=== PATIENT | female | born 1940 | race Caucasian/White ===

== ENCOUNTER → 2016-10-31 | Day surgery (SDC) | payer BC ==
[2016-10-23 15:44] VITALS: Ht 157.5 cm; Wt 59.1 kg
[~2016-10-31] VITALS: Ht 157.5 cm; Wt 59.1 kg
[~2016-10-31] MED LIST: 500ML BSS 0.3ML EPI 1:1000PF IRRIG ONE; ACETAMINOPHEN 325 MG TAB ONE; ACETAMINOPHEN 325 MG TAB PO PRN; AMVISC PLUS 0.8ML SYRINGE INT OCU ONE; ATROPINE SULFATE 0.1 MG/ML 5ML SYR IV PRN; AcetaZOLAMIDE 250 MG TAB ONE; AcetaZOLAMIDE 250 MG TAB PO SCH; AcetylCHOLine CHL OP SOL 1:100 2 ML BTL ONE; BSS FLUSH ONE; CIPR0.3S OP; ENDOCOAT 0.85ML SYRINGE INT OCU ONE; EpHEDrine SULFATE INJ 50 MG/ML AMP IV PRN; EpINEphrine INJ 1MG/ML AMP 1 MG/ML AMP ONE; FENTANYL CITRATE INJ 50 MCG/1 ML 2 ML VIAL ONE; HYDR200T5 PO; LACTATED RINGER'S 1000ML 500 ML IV SCH; LIDOCAINE 4% OP SOLN DROP CHARGE ONE; LIDOCAINE 4% OP SOLN DROP CHARGE OPL SCH; LIDOCAINE HCL 1% MPF 2 ML VIAL ONE; MIDAZOLAM HCL 1 MG/ML 2ML VIAL ONE; MIX: 4ML BSS 1ML EPI 1:1000 PF TOP ONE; MOXIFLOXACIN OPH SOLN PER DROP CHARGE ONE; POVIDONE-IODINE OP SOLN 30 ML BTL ONE; PRED-301 PO; PRED1SUS3 OPL; PROPARACAINE 0.5% OP SOLN PER DROP CHARGE OPL SCH; RISE150T PO; TOBRAMYCIN/DEXAMETHASONE OPH OINT PER APPLN CHARGE ONE; VITAMIN D PO
[2016-10-31] MEDS: PHENYLEPHRINE HCL 2.5% OP SOLN PER DROP CHARGE OPL SCH ×3 (06:31→06:41)
[2016-10-31] MEDS: TROPICAMIDE 1% OP SOLN PER DROP CHARGE OPL SCH ×3 (06:32→06:42)
[2016-10-31] MEDS: CYCLOPENTOLATE HCL 1% OP SOLN PER DROP CHARGE OPL SCH ×3 (06:33→06:43)
[2016-10-31] MEDS: MOXIFLOXACIN OPH SOLN PER DROP CHARGE OPL SCH ×3 (06:34→06:44)
--- NOTE | 2016-10-31 06:40 | History & Physical Bridge - [place] ---
H&P Re-Evaluation Bridge Note: I have examined the patient, reviewed the History & Physical and in the interval since the performance of the History & Physical I have noted the following changes of clinical significance: No changes noted
--- NOTE | 2016-10-31 07:51 | [facility] Post Operative Brief Note ---
Immediate Operative Summary Operative Date Oct 31, 2016. Pre-Operative Diagnosis Left Eye Cataract Post-Operative Diagnosis Same Procedure(s) Performed Left Cataract Phacoemulsification With Intraocular Lens Implant Surgeon Dr Bailey Supervisor Grower Surgeon(s) None Estimated Blood Loss 0ml Findings left cataract Specimens None Complication(s) posterior capsule tear with vitreous prolapse Disposition
[2016-10-31 07:53] VITALS: TEMP 36.7
--- NOTE | 2016-10-31 07:54 | [facility] Operative Report ---
Operative Report Phaco with monofocal IOL DATE OF OPERATION: 10/31/16 PREOPERATIVE DIAGNOSIS: Senile nuclear cataract, left eye POSTOPERATIVE DIAGNOSIS: Senile nuclear cataract, left eye PROCEDURE PERFORMED: Phacoemulsification with intraocular lens implantation, left eye SURGEON: Dr. Jorge Bailey ANESTHESIA: Topical with 1% intracameral lidocaine and monitored anesthesia care COMPLICATIONS: Posterior capsule tear with vitreous loss DESCRIPTION OF PROCEDURE: After positively identifying the patient both verbally and by wristband in the preoperative area, the left eye was marked as the operative eye. The patient was then brought back to the operating room by the anesthesia and nursing staff where they were given a drop of Lidocaine and betadine into the operative eye. They were then sterilely prepped and draped in the standard fashion typical for ophthalmic surgery. Steri-strips were placed along the upper eyelids to keep the lashes back, and a lid speculum was placed into the operative eye. At this point, a documented time out was performed with members of the ophthalmology, nursing, and anesthesia staffs all agreeing upon the correct patient, correct location for surgery, correct procedure, and correct type and power of intraocular lens to be implanted. The microscope was then swung into position. First, a paracentesis wound was made using a sideport blade. Then, in sequence, 1% preservative-free lidocaine followed by Endocoat viscoelastic was injected into the anterior chamber. Next , the main incision was made with a keratome blade in triplanar fashion. A sharp cystotome was introduced into the eye and used to create a tear in the anterior capsule, which was directed into a continuous curvilinear capsulorrhexis using Utrata forceps. Hydrodissection was then performed with BSS on a flat-tip cannula. Next, the phacoemulsification handpiece was introduced into the eye and used to remove the nucleus in a [id number] fashion. A posterior capsule tear was noted after the last quadrant was removed. Amvisc was used to fill the anterior segment. Gentle I/A was done to remove any remaining epinuclear material. Anterior vitrectomy was performed due to a small amount of vitreous prolapse. Amvisc was then injected into the anterior chamber and using the lens injector system, an [id number] 22.0 D lens, serial number [id number], and expiration date 07/2020 was injected into the sulcus and rotated into the correct position. Next, the irrigation-aspiration handpiece was used to remove all remaining Amvisc. BSS was used to hydrate the main wound, and then BSS and Miochol were injected into the paracentesis site to reach physiologic pressure and ensure a round pupil The main wound was checked and found to be watertight after adding resure. The patient was given drops of Vigamox and Tobradex ointment into the operative eye, and then the surrounding area was cleaned and dried. A clear plastic shield was placed over the eye and the patient was then sat up and taken from the operating room by the anesthesia staff having tolerated the procedure well and suffering no complications. DISPOSITION: The patient was returned to the recovery room in stable condition. I attest to the content of the Intraoperative Record and any orders documented therein. Any exceptions are noted below.
--- NOTE | 2016-10-31 07:55 | Discharge Instructions-SurgCtr ---
Discharge Instructions Visit Reason for Visit: Left Cataract Discharge Discharge Diagnosis / Problem: left cataract Discharge Goals Goal(s): Decrease discomfort, Improve function Activity Recommendations Activity Limitations: as noted below Anesthesia . Post Anesthesia Instructions: If you have had General Anesthesia or IV Sedation: * Do not drive today. * Resume driving when surgeon permits. * Do not make important decisions or sign legal documents today. * Call surgeon for: 1. Temperature elevations greater than 101 degrees F. 2. Uncontrollable pain. 3. Excessive bleeding. 4. Persistent nausea and vomiting. 5. Medication intolerance (nausea, vomiting or rash). * For nausea and vomiting use only clear liquids such as: tea, soda, bouillon until nausea subsides, then gradually increase diet as tolerated. * If you have any concerns or questions, call your surgeon's office. If physician is unavailable and it is an emergency, call 911 or go to the nearest emergency room. . Instructions / Follow-Up Instructions / Follow-Up ACTIVITY RECOMMENDATIONS: * Light activities. * You may walk outside, read, watch television. * You may notice redness on the white part of the eye and some blurry vision - this is normal. MEDICATIONS: Resume previous medications unless instructed otherwise by your surgeon. Start all eye drops at 10 am today: * Eye drops (today): Prednisone - one drop in operative eye every 2 hours while awake Ciprofloxacin - one drop in operative eye every 2 hours while awake SPECIAL CARE INSTRUCTIONS: * Tape plastic shield over eye to sleep at night. Call your doctor at with any concerns or problems. FOLLOW UP VISIT: Follow-up with Dr Bailey at [facility] as scheduled. Diet Recommendations Home Diet: no limitations Procedures Procedures Performed: Left Cataract Phacoemulsification With Intraocular Lens Implant Pending Studies Studies pending at discharge: no Medical Emergencies . Who to Call and When: Medical Emergencies: If at any time you feel your situation is an emergency, please call 911 immediately. . Non-Emergent Contact Non-Emergency issues call your: Surgeon . . "Provider Documentation" section prepared by Jorge Bailey.
--- NOTE | 2016-10-31 08:02 | Anesthesia Progress Nt - [facility] ---
Anesthesia Post Op Note Date & Time Oct 31, 2016 at 08:01 Vital Signs Pain Intensity: 0 Vital Signs Past 12 Hours Date Time Temp Pulse Resp B/P Pulse Ox O2 Delivery O2 Flow Rate FiO2 10/31/16 06:26 36.4 85 16 135/84 94 Room Air Notes Mental Status: alert / awake / arousable, participated in evaluation Pt Amnestic to Procedure: Yes Nausea / Vomiting: adequately controlled Pain: adequately controlled Airway Patency, RR, SpO2: stable & adequate BP & HR: stable & adequate Hydration State: stable & adequate Anesthetic Complications: no major complications apparent
[2016-10-31 08:20] VITALS: BP 146/87; PULSE 73; O2SAT 95
== END | disposition home or self-care (01) ==
LOC: X.SURG 06:14
PROVIDERS: ATTEND Ophthalmology
DX: H25.12 Age-related nuclear cataract, left eye (principal); Z83.3 Family history of diabetes mellitus; Z83.511 Family history of glaucoma; Z90.89 Acquired absence of other organs; Z87.891 Personal history of nicotine dependence

== ENCOUNTER → 2016-11-21 | Day surgery (SDC) | payer BC ==
[2016-11-12 14:23] VITALS: Ht 157.5 cm; Wt 59.1 kg
[~2016-11-21] VITALS: Ht 157.5 cm; Wt 59.1 kg
[~2016-11-21] MED LIST changes: -ACETAMINOPHEN 325 MG TAB ONE; -AcetaZOLAMIDE 250 MG TAB ONE; -AcetaZOLAMIDE 250 MG TAB PO SCH; -AcetylCHOLine CHL OP SOL 1:100 2 ML BTL ONE; +CYCLOPENTOLATE HCL 1% OP SOLN PER DROP CHARGE OPR SCH; +FENTANYL CITRATE INJ 50 MCG/1 ML 2 ML VIAL IV PRN; -FENTANYL CITRATE INJ 50 MCG/1 ML 2 ML VIAL ONE; -LIDOCAINE 4% OP SOLN DROP CHARGE OPL SCH; +LIDOCAINE 4% OP SOLN DROP CHARGE OPR SCH; +ONDANSETRON INJ 2 MG/ML 2 ML VIAL IV PRN; +PHENYLEPHRINE HCL 2.5% OP SOLN PER DROP CHARGE OPR SCH; -PROPARACAINE 0.5% OP SOLN PER DROP CHARGE OPL SCH; +PROPARACAINE 0.5% OP SOLN PER DROP CHARGE OPR SCH; +TROPICAMIDE 1% OP SOLN PER DROP CHARGE OPR SCH
[2016-11-21] MEDS: PHENYLEPHRINE HCL 2.5% OP SOLN PER DROP CHARGE OPR SCH ×3 (08:06→08:17)
[2016-11-21] MEDS: TROPICAMIDE 1% OP SOLN PER DROP CHARGE OPR SCH ×3 (08:07→08:18)
[2016-11-21] MEDS: CYCLOPENTOLATE HCL 1% OP SOLN PER DROP CHARGE OPR SCH ×3 (08:08→08:20)
[2016-11-21] MEDS: MOXIFLOXACIN OPH SOLN PER DROP CHARGE OPR SCH ×3 (08:10→08:21)
--- NOTE | 2016-11-21 10:26 | [facility] Operative Report ---
Operative Report Phaco with monofocal IOL DATE OF OPERATION: 11/21/16 PREOPERATIVE DIAGNOSIS: Senile nuclear cataract, right eye POSTOPERATIVE DIAGNOSIS: Senile nuclear cataract, right eye PROCEDURE PERFORMED: Phacoemulsification with intraocular lens implantation, right eye SURGEON: Dr. Jorge Bailey ANESTHESIA: Topical with 1% intracameral lidocaine and monitored anesthesia care COMPLICATIONS: None DESCRIPTION OF PROCEDURE: After positively identifying the patient both verbally and by wristband in the preoperative area, the right eye was marked as the operative eye. The patient was then brought back to the operating room by the anesthesia and nursing staff where they were given a drop of Lidocaine and betadine into the operative eye. They were then sterilely prepped and draped in the standard fashion typical for ophthalmic surgery. Steri-strips were placed along the upper eyelids to keep the lashes back, and a lid speculum was placed into the operative eye. At this point, a documented time out was performed with members of the ophthalmology, nursing, and anesthesia staffs all agreeing upon the correct patient, correct location for surgery, correct procedure, and correct type and power of intraocular lens to be implanted. The microscope was then swung into position. First, a paracentesis wound was made using a sideport blade. Then, in sequence, 1% preservative-free lidocaine followed by Endocoat viscoelastic was injected into the anterior chamber. Next , the main incision was made with a keratome blade in triplanar fashion. A sharp cystotome was introduced into the eye and used to create a tear in the anterior capsule, which was directed into a continuous curvilinear capsulorrhexis using Utrata forceps. Hydrodissection was then performed with BSS on a flat-tip cannula. Next, the phacoemulsification handpiece was introduced into the eye and used to remove the nucleus in a [id number] fashion. This was done without complication and then the irrigation-aspiration handpiece was introduced into the eye and used to remove all remaining cortical and epinuclear material. Amvisc was then injected into the anterior chamber as well as into the capsular bag and using the lens injector system, an MX60 21.5 D lens, serial number [id number], and expiration date 06/2019 was injected into the capsular bag and rotated into the correct position. Next, the irrigation- aspiration handpiece was used to remove all remaining Amvisc. BSS was used to hydrate the main wound, and then BSS was injected into the paracentesis site to reach physiologic pressure and then the main wound was checked and found to be watertight. The patient was given drops of Vigamox and Tobradex ointment into the operative eye, and then the surrounding area was cleaned and dried. A clear plastic shield was placed over the eye and the patient was then sat up and taken from the operating room by the anesthesia staff having tolerated the procedure well and suffering no complications. DISPOSITION: The patient was returned to the recovery room in stable condition. I attest to the content of the Intraoperative Record and any orders documented therein. Any exceptions are noted below.
--- NOTE | 2016-11-21 10:26 | [facility] Post Operative Brief Note ---
Immediate Operative Summary Operative Date Nov 21, 2016. Pre-Operative Diagnosis Cataract Right Eye Post-Operative Diagnosis Same Procedure(s) Performed Right Cataract Phacoemulsification With Intraocular Lens Implant Surgeon Dr. Bailey Control Systems Engineer Surgeon(s) None Estimated Blood Loss None Findings right cataract Specimens None Complication(s) None Disposition
--- NOTE | 2016-11-21 10:27 | Discharge Instructions-SurgCtr ---
Discharge Instructions Visit Reason for Visit: Cataract Right Eye Discharge Discharge Diagnosis / Problem: right cataract Discharge Goals Goal(s): Decrease discomfort, Improve function Activity Recommendations Activity Limitations: as noted below Anesthesia . Post Anesthesia Instructions: If you have had General Anesthesia or IV Sedation: * Do not drive today. * Resume driving when surgeon permits. * Do not make important decisions or sign legal documents today. * Call surgeon for: 1. Temperature elevations greater than 101 degrees F. 2. Uncontrollable pain. 3. Excessive bleeding. 4. Persistent nausea and vomiting. 5. Medication intolerance (nausea, vomiting or rash). * For nausea and vomiting use only clear liquids such as: tea, soda, bouillon until nausea subsides, then gradually increase diet as tolerated. * If you have any concerns or questions, call your surgeon's office. If physician is unavailable and it is an emergency, call 911 or go to the nearest emergency room. . Instructions / Follow-Up Instructions / Follow-Up ACTIVITY RECOMMENDATIONS: * Light activities. * You may walk outside, read, watch television. * You may notice redness on the white part of the eye and some blurry vision - this is normal. MEDICATIONS: Resume previous medications unless instructed otherwise by your surgeon. Start all eye drops at 12:30 pm today: * Eye drops (today): Prednisone - one drop in operative eye every 2 hours while awake Ciprofloxacin - one drop in operative eye every 2 hours while awake SPECIAL CARE INSTRUCTIONS: * Tape plastic shield over eye to sleep at night. Call your doctor at with any concerns or problems. FOLLOW UP VISIT: Follow-up with Dr Bailey at [place] office as scheduled. Diet Recommendations Home Diet: no limitations Procedures Procedures Performed: Right Cataract Phacoemulsification With Intraocular Lens Implant Pending Studies Studies pending at discharge: no Medical Emergencies . Who to Call and When: Medical Emergencies: If at any time you feel your situation is an emergency, please call 911 immediately. . Non-Emergent Contact Non-Emergency issues call your: Surgeon . . "Provider Documentation" section prepared by Jorge Bailey.
[2016-11-21 10:30] VITALS: TEMP 36.2
--- NOTE | 2016-11-21 10:44 | Anesthesia Progress Nt - [facility] ---
Anesthesia Post Op Note Date & Time Nov 21, 2016 at 10:44 Vital Signs Pain Intensity: 2 Vital Signs Past 12 Hours Date Time Temp Pulse Resp B/P Pulse Ox O2 Delivery O2 Flow Rate FiO2 11/21/16 10:30 36.2 72 16 146/83 97 Room Air 11/21/16 07:52 36.8 80 16 165/93 94 Room Air Notes Mental Status: alert / awake / arousable, participated in evaluation Pt Amnestic to Procedure: Yes Nausea / Vomiting: adequately controlled Pain: adequately controlled Airway Patency, RR, SpO2: stable & adequate BP & HR: stable & adequate Hydration State: stable & adequate Anesthetic Complications: no major complications apparent
[2016-11-21 10:50] VITALS: BP 146/85; PULSE 70; O2SAT 97
== END | disposition home or self-care (01) ==
LOC: X.SURG 07:39
PROVIDERS: ATTEND Ophthalmology
DX: H25.11 Age-related nuclear cataract, right eye (principal); Z98.42 Cataract extraction status, left eye; Z68.23 Body mass index [BMI] 23.0-23.9, adult; Z90.89 Acquired absence of other organs; Z87.891 Personal history of nicotine dependence

== ENCOUNTER → 2017-05-06 | Outpatient (CLI) | payer BC ==
[~2017-05-06] MED LIST changes: -500ML BSS 0.3ML EPI 1:1000PF IRRIG ONE; -ACETAMINOPHEN 325 MG TAB PO PRN; -AMVISC PLUS 0.8ML SYRINGE INT OCU ONE; -ATROPINE SULFATE 0.1 MG/ML 5ML SYR IV PRN; -BSS FLUSH ONE; -CYCLOPENTOLATE HCL 1% OP SOLN PER DROP CHARGE OPR SCH; -ENDOCOAT 0.85ML SYRINGE INT OCU ONE; -EpHEDrine SULFATE INJ 50 MG/ML AMP IV PRN; -EpINEphrine INJ 1MG/ML AMP 1 MG/ML AMP ONE; -FENTANYL CITRATE INJ 50 MCG/1 ML 2 ML VIAL IV PRN; -LACTATED RINGER'S 1000ML 500 ML IV SCH; -LIDOCAINE 4% OP SOLN DROP CHARGE ONE; -LIDOCAINE 4% OP SOLN DROP CHARGE OPR SCH; -LIDOCAINE HCL 1% MPF 2 ML VIAL ONE; -MIDAZOLAM HCL 1 MG/ML 2ML VIAL ONE; -MIX: 4ML BSS 1ML EPI 1:1000 PF TOP ONE; -MOXIFLOXACIN OPH SOLN PER DROP CHARGE ONE; -ONDANSETRON INJ 2 MG/ML 2 ML VIAL IV PRN; -PHENYLEPHRINE HCL 2.5% OP SOLN PER DROP CHARGE OPR SCH; -POVIDONE-IODINE OP SOLN 30 ML BTL ONE; -PROPARACAINE 0.5% OP SOLN PER DROP CHARGE OPR SCH; -TOBRAMYCIN/DEXAMETHASONE OPH OINT PER APPLN CHARGE ONE; -TROPICAMIDE 1% OP SOLN PER DROP CHARGE OPR SCH
[2017-05-06 11:48] LABS: BASO % 0.2 %; BASO ABS # 0.02 K/uL (0-0.2); COMPLETE YES; EOS % 2.8 %; IG% 0.6 %; LYMPH % 20.7 %; LYMPH ABS # 2.12 K/uL (1.2-3.4); MEAN CELL VOLUME 90.1 fL (80-100); MEAN CORPUSCULAR HEMOGLOBIN 28.6 pg (25-34); MEAN CORPUSCULAR HGB CONC 31.8 g/dl (32-36); MEAN PLATELET VOLUME 9.7 fL (7.4-10.4); MONO % 8.9 %; NEUT % 66.8 %; PLATELET COUNT 361 K/uL (130-400); RED BLOOD COUNT 5.66 M/uL (4.2-5.4); WHITE BLOOD COUNT 10.26 K/uL (4.8-10.8)
[2017-05-06 12:00] LABS: ALT/SGPT 21 U/L (12-78); BLOOD UREA NITROGEN 13 mg/dl (7-18); BUN/CREATININE RATIO 14.2 (10-20); CALCIUM 9.3 mg/dl (8.5-10.1); CARBON DIOXIDE 26 mmol/L (21-32); CHLORIDE 107 mmol/L (98-107); CREATININE 0.92 mg/dl (0.60-1.20); GLUCOSE 135 mg/dl (70-99); POTASSIUM 4.4 mmol/L (3.5-5.1); SODIUM 141 mmol/L (136-145)
[2017-05-06 12:10] LABS: ALB/GLOB RATIO 1.1 (0.9-2); ALKALINE PHOSPHATASE 75 U/L (45-117); AST/SGOT 13 U/L (15-37)
[2017-05-06 12:42] LABS: ESTIMATED AVERAGE GLUCOSE 120 mg/dl; HA1C FLAG Normal (Normal)
== END | disposition home or self-care (01) ==
LOC: C.LAB1850 10:02
PROVIDERS: ATTEND Internal Medicine
DX: E55.9 Vitamin D deficiency, unspecified (principal); E04.1 Nontoxic single thyroid nodule; R73.9 Hyperglycemia, unspecified; R77.8 Other specified abnormalities of plasma proteins; M06.9 Rheumatoid arthritis, unspecified; Z79.52 Long term (current) use of systemic steroids; Z79.899 Other long term (current) drug therapy; M81.0 Age-related osteoporosis without current pathological fracture

== ENCOUNTER → 2017-09-16 | Outpatient (CLI) | payer BC ==
[2017-09-16 12:12] LABS: BASO % 0.4 %; BASO ABS # 0.03 K/uL (0-0.2); COMPLETE YES; EOS % 3.6 %; HEMATOCRIT 46.9 % (37-47); IG% 0.6 %; LYMPH ABS # 2.16 K/uL (1.2-3.4); MEAN CELL VOLUME 90.5 fL (80-100); MEAN CORPUSCULAR HEMOGLOBIN 29.3 pg (25-34); MEAN CORPUSCULAR HGB CONC 32.4 g/dl (32-36); MEAN PLATELET VOLUME 9.8 fL (7.4-10.4); MONO % 8.3 %; NEUT % 59.1 %; PLATELET COUNT 323 K/uL (130-400); RED BLOOD COUNT 5.18 M/uL (4.2-5.4); WHITE BLOOD COUNT 7.71 K/uL (4.8-10.8)
== END | disposition home or self-care (01) ==
LOC: C.LAB1850 10:16
PROVIDERS: ATTEND Internal Medicine Rheumatology
DX: M06.9 Rheumatoid arthritis, unspecified (principal); Z51.81 Encounter for therapeutic drug level monitoring; Z79.52 Long term (current) use of systemic steroids; Z79.899 Other long term (current) drug therapy; M81.0 Age-related osteoporosis without current pathological fracture

== ENCOUNTER → 2017-11-05 | Outpatient (CLI) | payer BC | END | disposition home or self-care (01) | LOC: C.MAMM 12:43 | PROVIDERS: ATTEND Internal Medicine | DX: Z79.52 Long term (current) use of systemic steroids (principal); M85.80 Other specified disorders of bone density and structure, unspecified site; N25.81 Secondary hyperparathyroidism of renal origin; M81.0 Age-related osteoporosis without current pathological fracture; E61.8 Deficiency of other specified nutrient elements ==

== ENCOUNTER → 2018-02-24 | Outpatient (CLI) | payer BC ==
[2018-02-24 10:38] LABS: BASO % 0.5 %; BASO ABS # 0.04 K/uL (0-0.2); EOS % 4.5 %; EOS ABS # 0.33 K/uL (0-0.5); HEMATOCRIT 46.7 % (37-47); HEMOGLOBIN 15.4 g/dL (12.0-16.0); IG# 0.03 K/uL (0.00-0.02); LYMPH % 26.7 %; LYMPH ABS # 1.97 K/uL (1.2-3.4); MEAN CELL VOLUME 89.6 fL (80-100); MEAN CORPUSCULAR HEMOGLOBIN 29.6 pg (25-34); MEAN PLATELET VOLUME 9.4 fL (7.4-10.4); MONO ABS # 0.59 K/uL (0.11-0.59); NEUT % 59.9 %; NEUT ABS # 4.41 K/uL (1.4-6.5); PLATELET COUNT 295 K/uL (130-400); RED CELL DISTRIBUTION WIDTH CV 14.2 % (11.5-14.5); RED CELL DISTRIBUTION WIDTH SD 46.6 fL (36.4-46.3); WHITE BLOOD COUNT 7.37 K/uL (4.8-10.8)
[2018-02-24 11:07] LABS: ALBUMIN 3.4 gm/dl (3.4-5.0); ALT/SGPT 19 U/L (12-78); AST/SGOT 15 U/L (15-37); BLOOD UREA NITROGEN 19 mg/dl (7-18); CALCIUM 8.8 mg/dl (8.5-10.1); CARBON DIOXIDE 27 mmol/L (21-32); CREATININE 0.82 mg/dl (0.60-1.20); GLUCOSE 109 mg/dl (70-99); POTASSIUM 3.6 mmol/L (3.5-5.1); SODIUM 141 mmol/L (136-145)
[2018-02-24 11:10] LABS: ALKALINE PHOSPHATASE 72 U/L (45-117); TOTAL PROTEIN 6.5 gm/dl (6.4-8.2)
[2018-02-24 11:28] LABS: HEMOGLOBIN A1C 5.6 % (4.5-5.6)
== END | disposition home or self-care (01) ==
LOC: C.LAB1850 09:40
PROVIDERS: ATTEND Internal Medicine Rheumatology
DX: M06.9 Rheumatoid arthritis, unspecified (principal); Z79.52 Long term (current) use of systemic steroids; Z79.899 Other long term (current) drug therapy; M81.0 Age-related osteoporosis without current pathological fracture; R73.9 Hyperglycemia, unspecified; E55.9 Vitamin D deficiency, unspecified; M85.80 Other specified disorders of bone density and structure, unspecified site

== ENCOUNTER → 2018-03-04 | Outpatient (CLI) | payer BC ==
--- NOTE | 2018-03-04 13:22 | DIAGNOSTIC IMAGING REPORT ---
SOFT TISS HEAD/NECK-THYROID HISTORY: Thyroid cyst/nodules. THYROID NODULES COMPARISON: 09/02/2017 FINDINGS: Right lobe: Maximum linear dimension 4.2 cm. Diffuse heterogeneity and several nodular densities are again noted. The largest complex partially cystic nodule mid aspect right thyroid has current maximum dimensions of 2.4 x 2.3 cm. This is unchanged from the prior exam. Left lobe: Maximum linear dimension 4.8 cm. This is very similar from the prior study most likely secondary to variations in scanning. Several hypoechoic and or cystic regions are again noted with the largest measuring up to 4 mm in greatest dimension. This is unchanged in the prior study. Isthmus: No nodules. 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 No new or interval findings. The above report was generated using voice recognition software. It may contain grammatical, syntax or spelling errors. Electronically signed by: Leno Golden M.D. 03/04/2018 1:21 PM Dictated Date/Time: 03/04/2018 1:19 PM
== END | disposition home or self-care (01) ==
LOC: C.ULTRBC 12:29
PROVIDERS: ATTEND Internal Medicine
DX: E04.2 Nontoxic multinodular goiter (principal)

== ENCOUNTER 2024-09-19 14:12 | Inpatient (IN) ==
--- NOTE | 2024-09-19 14:42 | Emergency Department Note ---
Impression & Plan Acute pyelonephritis, Weakness, Elevated troponin I level ED Provider Note NAME: TAMIKO SALGADO AGE: 84 SEX: F : 1940 ARRIVES VIA: Walk-In INFORMANT: Patient, the patient's son ED PROVIDER(S): Anatoly Swain DO CHIEF COMPLAINT: Weakness HPI: The patient is an 84-year-old female who presented to the emergency department with her son for an evaluation of altered mental status. The patient has been having problems with weakness over the course the last several days. He thinks that she may have a urine infection she has had very smelly urine. She is been laying on the couch. She has had a lot of weakness and not wanting to get up and do anything. The patient's had no vomiting. She denies having any abdominal pain. The patient's had a slight cough. ROS: See above HPI for pertinent positives & negatives. A total of 10 systems reviewed and were otherwise negative. PAST MEDICAL HISTORY: See Below PAST SURGICAL HISTORY: See Below FAMILY HISTORY: See Below SOCIAL HISTORY: See Below HOME MEDICATIONS: See Below ALLERGIES: See Below VITALS: See Below PHYSICAL EXAMINATION: GENERAL: The patient is awake and alert. The patient is somewhat anxious appearing. EYES: The conjunctivae are clear. The pupils are round and reactive. EARS, NOSE, MOUTH AND THROAT: The nose is without any evidence of any deformity. NECK: The neck is nontender and supple. RESPIRATORY: Diminished breath sounds are noted at the left base. There were rales noted at the left base. There is no tachypnea or conversational dyspnea. CARDIOVASCULAR: Regular rate and rhythm noted there no murmurs rubs or gallops normal S1 normal S2. GASTROINTESTINAL: The abdomen is soft. Abdomen is nontender. MUSCULOSKELETAL/EXTREMITIES: There is no evidence of gross deformity full range of motion is noted in the hips and shoulders. SKIN: There is no obvious evidence of any rash. There are no petechiae, pallor or cyanosis noted. NEUROLOGIC: Patient is awake alert and oriented x 3. Strength is diminished but symmetric. MEDICAL DECISION MAKING: The patient is an 84-year-old female who presented to the emergency department for an evaluation of generalized weakness. The patient has mostly been lying on the couch according to her son. She has not been feeling well. She has had some nausea but no vomiting. She has no abdominal pain. The patient did not have a cough but she did have some abnormal lung sounds. Initially she was hypotensive and was found have an elevated lactate. She was treated with IV fluids and IV antibiotics. I discussed the patient's laboratory and radiographic studies with her. Ultimately she was found to have signs of urinary tract infection on urinalysis. I feel this is likely the source of her infection. Because of her vital signs as well as her elevated lactate I discussed her condition with the on-call [facility] hospitalist. Triage Nursing notes reviewed. Prior medical records reviewed Vital Signs: reviewed and remarkable for initial hypotension. Differential diagnosis: Infection, dehydration, metabolic abnormality, hypo/hyperglycemia, electrolyte disturbance, anemia, hypoxia, cardiac sources, intracerebral event, toxicologic, neurologic, as well as other pathologies. ER treatment provided: See below Diagnostics interpreted by me: ECG: EKG was obtained in the emergency department. My interpretation is sinus tachycardia at 105 bpm. Poor R wave progression was noted. LVH was suggested by voltage criteria. There is no acute ST segment abnormalities. Cardiac Monitoring: An order was placed for continuous cardiac monitoring. The monitor shows a rate of 76 bpm with sinus rhythm. Laboratory studies: As stated above and show below. Imaging studies: See below. Radiographic imaging was reviewed by myself Consultation(s): I discussed this case with Dr. Young [facility]. Past Med/Surg History Problem List (Updated 09/19/24 @ 17:36 by Janene Aguilar PA-C) Respiratory alkalosis Hypokalemia Hypomagnesemia UTI (urinary tract infection) Sepsis Elevated troponin I level (Acute) Weakness (Acute) Acute pyelonephritis (Acute) Greater trochanteric pain syndrome Vitamin D deficiency disease (Acute) Secondary hyperparathyroidism (Acute) SNHL (sensorineural hearing loss) (Acute) Rheumatoid arthritis (Acute) Osteoporosis (Acute) Osteopenia (Acute) Multiple thyroid nodules (Acute) MGUS (monoclonal gammopathy of unknown significance) (Acute) Left hip pain (Acute) Hyperglycemia (Acute) Greater trochanteric bursitis (Acute) Forgetfulness (Acute) Irregular heart rate Vitamin B12 deficiency Elevated hemoglobin Hypertension Surgical History S/P tubal ligation S/P tonsillectomy Family History Father Congestive heart failure Myocardial infarction Other Breast cancer Denies family history of Ovarian cancer Prostate cancer Colorectal cancer Social History Smoking Status: Never smoker Second Hand Exposure: No; Do You Dip or Chew Tobacco: No; Hx Alcohol Use: No (social) Hx Substance Use: No Preferred Language: Sinhala Communication Ability: Effective Visual Impairment: No Limitations Hearing Ability: Normal marital status: / current occupational status: retired Feels Safe at Home: Yes Dental Care, Regularly: Yes Physical Activity Frequency: Does not Exercise Seatbelt Use: always Allergies Allergies Allergy/AdvReac Type Severity Reaction Status Date / Time No Known Drug Allergies Allergy Unknown . Verified 09/04/24 14:49 Home Meds Home Medications Medication Instructions Recorded Confirmed calcium 600 mg (as 1 cap PO PM 01/26/22 09/19/24 carbonate)-vitamin D3 5 mcg (200 unit) capsule (Calcium 600 + D(3)) B12 1 tab PO PM 09/19/24 09/19/24 amlodipine 2.5 mg tablet 2.5 mg PO PM 09/19/24 09/19/24 amlodipine 5 mg tablet 5 mg PO PM 09/19/24 09/19/24 cholecalciferol (vitamin D3) 125 5,000 unit PO PM 09/19/24 09/19/24 mcg (5,000 unit) capsule hydroxychloroquine 200 mg tablet 200 mg PO PM 09/19/24 09/19/24 prednisone 5 mg tablet 5 mg PO PM 09/19/24 09/19/24 Results & Data (ED) Vital Signs Vital Signs - 24 hr 09/19/24 14:13 09/19/24 14:27 09/19/24 14:34 Temperature 36.4 C L Temperature Source Temporal Artery Scan Pulse Rate 115 H Pulse Rate [Apical] 100 H Pulse Rhythm Regular Pulse Rhythm [Apical] Regular Pulse Strength Normal Pulse Strength [Apical] Normal Respiratory Rate 20 18 Respiratory Effort / Characteristics Non-Labored Spontaneous Non-Labored Respiratory Depth Normal Normal Blood Pressure 92/67 L Blood Pressure [Left Arm] 112/71 Blood Pressure Mean 75 Blood Pressure Mean [Left Arm] 84 Blood Pressure Position Sitting Pulse Oximetry 94 92 94 Oxygen Delivery Method Room Air Room Air Room Air Sepsis Recent Fever Within 48 Hours No Sepsis New/Unexplained Change in Mental Status N/A Sepsis Action Taken by Nursing No Action Required 09/19/24 15:31 09/19/24 16:00 09/19/24 16:02 Temperature Temperature Source Pulse Rate 78 Pulse Rate [Apical] 79 80 Pulse Rhythm Pulse Rhythm [Apical] Regular Regular Pulse Strength Pulse Strength [Apical] Normal Normal Respiratory Rate 16 16 Respiratory Effort / Characteristics Non-Labored Non-Labored Respiratory Depth Normal Normal Blood Pressure Blood Pressure [Left Arm] 102/71 124/73 Blood Pressure Mean Blood Pressure Mean [Left Arm] 81 90 Blood Pressure Position Pulse Oximetry 94 95 Oxygen Delivery Method Room Air Room Air Sepsis Recent Fever Within 48 Hours Sepsis New/Unexplained Change in Mental Status Sepsis Action Taken by Nursing 09/19/24 16:30 Temperature Temperature Source Pulse Rate Pulse Rate [Apical] 76 Pulse Rhythm Pulse Rhythm [Apical] Regular Pulse Strength Pulse Strength [Apical] Normal Respiratory Rate 16 Respiratory Effort / Characteristics Non-Labored Spontaneous Respiratory Depth Normal Blood Pressure Blood Pressure [Left Arm] 136/74 Blood Pressure Mean Blood Pressure Mean [Left Arm] 94 Blood Pressure Position Pulse Oximetry 96 Oxygen Delivery Method Room Air Sepsis Recent Fever Within 48 Hours Sepsis New/Unexplained Change in Mental Status Sepsis Action Taken by Intermediate Medications Current Medication List: was personally reviewed by me Laboratory Data Attestation: I reviewed the patient's lab results. 09/19/24 14:30 09/19/24 14:30 Lab Results 09/19/24 09/19/24 09/19/24 Range/Units 14:24 14:30 14:45 WBC 14.81 H (4.8-10.8) K/ul RBC 5.57 H (4.20-5.40) M/uL Hgb 15.5 (12.0-16.0) g/dl Hct 47.9 H (37.0-47.0) % MCV 86.0 (80.0-100.0) fL MCH 27.8 (25.0-34.0) pg MCHC 32.4 (32.0-36.0) g/dL RDW Std Deviation 46.4 H (36.4-46.3) fL RDW Coeff of Andrés 14.8 H (11.5-14.5) % Plt Count 300 (130-400) K/uL MPV 10.4 (9.4-12.4) fL Immature Gran % (Auto) 2.6 % Neut % (Auto) 73.4 % Lymph % (Auto) 13.7 % Snyder % (Auto) 8.1 % Eos % (Auto) 1.8 % Baso % (Auto) 0.4 % Neut # (Auto) 10.86 H (1.40-6.50) K/uL Lymph # (Auto) 2.03 (1.20-3.40) K/uL Snyder # (Auto) 1.20 H (0.11-0.59) K/uL Eos # (Auto) 0.27 (0.00-0.50) K/uL Baso # (Auto) 0.06 (0.00-0.20) K/uL Immature Gran # (Auto) 0.39 H (0.01-0.20) K/uL PT 10.7 (9.0-12.0) Seconds INR 1.0 (0.9-1.1) APTT 22 (21-31) Seconds PTT Ratio 0.8 VBG pH 7.44 H (7.36-7.41) VBG pCO2 34 L (38-50) mmHg VBG pO2 35 mmHg VBG HCO3 23 mmol/L VBG O2 Saturation 62.5 % VBG Base Excess -0.5 mEq/L Sodium 139 (136-145) mmol/L Potassium 3.4 L (3.5-5.1) mmol/L Chloride 103 (98-107) mmol/L Carbon Dioxide 21 (21-32) mmol/L Anion Gap 15 H (3-11) BUN 21 (6-23) mg/dl Creatinine 0.96 (0.6-1.2) mg/dl Est Cr Clr Drug Dosing 35.1 ml/min eGFR 58.71 BUN/Creatinine Ratio 21.9 H (10-20) Glucose 195 H (70-99(Fasting)) mg/dl Lactate 4.4 H* (0.4-2.0) mmol/L Calcium 9.8 (8.6-10.3) mg/dl Magnesium 1.8 (1.7-2.4) mg/dl Total Bilirubin 1.9 H (0.2-1.0) mg/dl Direct Bilirubin 0.3 H (0-0.2) mg/dl AST 14 (13-39) U/L ALT 12 (7-52) U/L Alkaline Phosphatase 75 (34-104) U/L Troponin I High Sens 32.1 H (0-14) pg/ml Total Protein 6.5 (6.0-8.3) gm/dl Albumin 3.6 (3.4-5.0) gm/dl Procalcitonin 0.08 (0-0.5) ng/ml Urine Color Urine Appearance (Clear) Urine pH (4.5-7.5) Ur Specific [place] (1.000-1.030) Urine Protein (Negative) Urine Glucose (UA) (Negative) Urine Ketones (Negative) Urine Blood (Negative) Urine Nitrite (Negative) Urine Bilirubin (Negative) Urine Urobilinogen (Negative) Ur Leukocyte Esterase (Negative) Urine WBC (Auto) (0-5) /hpf Urine RBC (Auto) (0-2) /hpf U Hyaline Cast (Auto) (0-2) /lpf U Epithel Cells (Auto) (0-2) /hpf Urine Bacteria (Auto) (None Seen) SARS-CoV-2 (PCR) NEGATIVE (Negative) Influenza Type A (PCR) Negative (Neg) Influenza Type B (PCR) Negative (Neg) RSV (RT-PCR) Negative (Neg) 09/19/24 09/19/24 Range/Units 16:28 17:08 WBC (4.8-10.8) K/ul RBC (4.20-5.40) M/uL Hgb (12.0-16.0) g/dl Hct (37.0-47.0) % MCV (80.0-100.0) fL MCH (25.0-34.0) pg MCHC (32.0-36.0) g/dL RDW Std Deviation (36.4-46.3) fL RDW Coeff of Andrés (11.5-14.5) % Plt Count (130-400) K/uL MPV (9.4-12.4) fL Immature Gran % (Auto) % Neut % (Auto) % Lymph % (Auto) % Snyder % (Auto) % Eos % (Auto) % Baso % (Auto) % Neut # (Auto) (1.40-6.50) K/uL Lymph # (Auto) (1.20-3.40) K/uL Snyder # (Auto) (0.11-0.59) K/uL Eos # (Auto) (0.00-0.50) K/uL Baso # (Auto) (0.00-0.20) K/uL Immature Gran # (Auto) (0.01-0.20) K/uL PT (9.0-12.0) Seconds INR (0.9-1.1) APTT (21-31) Seconds PTT Ratio VBG pH (7.36-7.41) VBG pCO2 (38-50) mmHg VBG pO2 mmHg VBG HCO3 mmol/L VBG O2 Saturation % VBG Base Excess mEq/L Sodium (136-145) mmol/L Potassium (3.5-5.1) mmol/L Chloride (98-107) mmol/L Carbon Dioxide (21-32) mmol/L Anion Gap (3-11) BUN (6-23) mg/dl Creatinine (0.6-1.2) mg/dl Est Cr Clr Drug Dosing ml/min eGFR BUN/Creatinine Ratio (10-20) Glucose (70-99(Fasting)) mg/dl Lactate 1.8 (0.4-2.0) mmol/L Calcium (8.6-10.3) mg/dl Magnesium (1.7-2.4) mg/dl Total Bilirubin (0.2-1.0) mg/dl Direct Bilirubin (0-0.2) mg/dl AST (13-39) U/L ALT (7-52) U/L Alkaline Phosphatase (34-104) U/L Troponin I High Sens (0-14) pg/ml Total Protein (6.0-8.3) gm/dl Albumin (3.4-5.0) gm/dl Procalcitonin (0-0.5) ng/ml Urine Color Yellow Urine Appearance Turbid A (Clear) Urine pH 5.5 (4.5-7.5) Ur Specific [place] 1.015 (1.000-1.030) Urine Protein Trace H (Negative) Urine Glucose (UA) Negative (Negative) Urine Ketones Trace H (Negative) Urine Blood Negative (Negative) Urine Nitrite Positive A (Negative) Urine Bilirubin Negative (Negative) Urine Urobilinogen Negative (Negative) Ur Leukocyte Esterase 1+ H (Negative) Urine WBC (Auto) 11-20 H (0-5) /hpf Urine RBC (Auto) 0-2 (0-2) /hpf U Hyaline Cast (Auto) 11-20 H (0-2) /lpf U Epithel Cells (Auto) 6-10 H (0-2) /hpf Urine Bacteria (Auto) 4+ H (None Seen) SARS-CoV-2 (PCR) (Negative) Influenza Type A (PCR) (Neg) Influenza Type B (PCR) (Neg) RSV (RT-PCR) (Neg) Administered Medications Discontinued Medications Sodium Chloride (Nss) 500 mls @ 999 mls/hr IV .Q31M ONE Stop: 09/19/24 15:01 Last Infusion: 09/19/24 15:20 Dose: Infused Documented By: Admin: 09/19/24 14:48 Dose: 999 mls/hr Documented By: HB Sodium Chloride (Nss) 1,000 mls @ 999 mls/hr IV .Q1H1M ONE Stop: 09/19/24 16:00 Last Infusion: 09/19/24 16:45 Dose: Infused Documented By: Admin: 09/19/24 15:31 Dose: 999 mls/hr Documented By: HB Sodium Chloride (Nss) 500 mls @ 999 mls/hr IV .Q31M ONE Stop: 09/19/24 16:06 Last Infusion: 09/19/24 16:40 Dose: Infused Documented By: Admin: 09/19/24 16:09 Dose: 999 mls/hr Documented By: HB Ceftriaxone Sodium (Rocephin) 2,000 mg in 50 mls @ 100 mls/hr IV NOW STA Stop: 09/19/24 16:05 Last Infusion: 09/19/24 17:01 Dose: Infused Documented By: Admin: 09/19/24 16:30 Dose: 100 mls/hr Documented By: HB Imaging Data Attestation: I personally reviewed and interpreted this imaging study as follows: My Impression: 1 view chest x-ray was obtained in the emergency department. My interpretation is no free air or definite infiltrate, final report below. Radiologist's Impression: Chest X-Ray 09/19/24 14:31 EXAM: Radiograph of the Chest 1 View INDICATION: Sepsis. TECHNIQUE: Frontal view of the chest. COMPARISON: No relevant prior studies available. FINDINGS: Lungs and pleural spaces: Mild scarring or atelectasis in the medial right midlung. No consolidation or pulmonary edema. No pleural effusion or pneumothorax. Heart: Shape and configuration within normal limits allowing for technique. Mediastinum: Normal contour. Bones/joints: No fracture, erosion or dislocation. Soft tissues: No abnormality noted. No radiopaque foreign body noted. Vasculature: Ectatic aorta with arch calcification. Upper abdomen: No abnormality noted. IMPRESSION: No acute cardiopulmonary disease. ACT 112: Negative or not required by law. Electronically signed by Jenelle Mixon 09-19-2024 3:31 PM Discharge Plan Visit Data Chief Complaint: Leg Weakness, Bilateral Stated Complaint: CANT WALK, WEAKNESS ED Provider: Anatoly Swain Discharge Problem: Acute pyelonephritis, Weakness, Elevated troponin I level Patient Disposition: Being Evaluated by Hospitalist Forms Stand Alone Forms: [facility] Prescriptions Prescriptions: No Action Calcium 600 + D(3) 600 mg-5 mcg (200 unit) capsule 1 cap PO PM B12 1 tab PO PM Rx Instructions: unknown strength prednisone 5 mg tablet 5 mg PO PM amlodipine 2.5 mg tablet 2.5 mg PO PM Rx Instructions: with 5 mg tab amlodipine 5 mg tablet 5 mg PO PM hydroxychloroquine 200 mg tablet 200 mg PO PM cholecalciferol (vitamin D3) 125 mcg (5,000 unit) capsule 5,000 unit PO PM Referrals Referrals: Eliel Lynn MD [Primary Care Provider] -
[2024-09-19] MEDS: SODIUM CHLORIDE 0.9% 500 ML IV ONE ×2 (14:48→16:09)
[2024-09-19 14:56] LABS: Base Excess VBG -0.5 mEq/L; HCO3 VBG 23 mmol/L; Oxygen Saturation VBG 62.5 %; PCO2 VBG 34 mmHg (38-50); PO2 VBG 35 mmHg; pH VBG 7.44 (7.36-7.41)
[2024-09-19 15:08] LABS: Basophils # (auto) 0.06 K/uL (0.00-0.20); Basophils % (auto) 0.4 %; Eosinophils # (auto) 0.27 K/uL (0.00-0.50); Eosinophils % (auto) 1.8 %; Hematocrit (blood only) 47.9 % (37.0-47.0); Hemoglobin 15.5 g/dl (12.0-16.0); Immature Granulocytes # (auto) 0.39 K/uL (0.01-0.20); Immature Granulocytes % (auto) 2.6 %; Lymphocytes # (auto) 2.03 K/uL (1.20-3.40); Lymphocytes % (auto) 13.7 %; Mean Corpuscular Hemoglobin 27.8 pg (25.0-34.0); Mean Corpuscular Hgb Conc 32.4 g/dL (32.0-36.0); Mean Platelet Volume 10.4 fL (9.4-12.4); Monocytes % (auto) 8.1 %; Neutrophils # (auto) 10.86 K/uL (1.40-6.50); Neutrophils % (auto) 73.4 %; Platelet Count 300 K/uL (130-400); RDW Coefficient of Variation 14.8 % (11.5-14.5); RDW Standard Deviation 46.4 fL (36.4-46.3); Red Blood Count 5.57 M/uL (4.20-5.40); White Blood Count 14.81 K/ul (4.8-10.8)
[2024-09-19 15:30] LABS: Albumin Level 3.6 gm/dl (3.4-5.0); BUN Creatinine Ratio 21.9 (10-20); Bilirubin Direct 0.3 mg/dl (0-0.2); Bilirubin,Total 1.9 mg/dl (0.2-1.0); Calcium 9.8 mg/dl (8.6-10.3); Creatinine Clr Calc Pharmacy 35.1 ml/min; Magnesium 1.8 mg/dl (1.7-2.4); Potassium 3.4 mmol/L (3.5-5.1); Total Protein 6.5 gm/dl (6.0-8.3)
[2024-09-19] MEDS: SODIUM CHLORIDE 0.9% 1,000 ML IV ONE (15:31)
[2024-09-19 15:33] LABS: Partial Thromboplastin Ratio 0.8; Partial Thromboplastin Time 22 Seconds (21-31); Prothrombin Time 10.7 Seconds (9.0-12.0)
[2024-09-19 15:37] LABS: Troponin I High Sensitivity 32.1 pg/ml (0-14)
--- NOTE | 2024-09-19 15:37 | XRay Report ---
EXAM: Radiograph of the Chest 1 View INDICATION: Sepsis. TECHNIQUE: Frontal view of the chest. COMPARISON: No relevant prior studies available. FINDINGS: Lungs and pleural spaces: Mild scarring or atelectasis in the medial right midlung. No consolidation or pulmonary edema. No pleural effusion or pneumothorax. Heart: Shape and configuration within normal limits allowing for technique. Mediastinum: Normal contour. Bones/joints: No fracture, erosion or dislocation. Soft tissues: No abnormality noted. No radiopaque foreign body noted. Vasculature: Ectatic aorta with arch calcification. Upper abdomen: No abnormality noted. IMPRESSION: No acute cardiopulmonary disease. ACT 112: Negative or not required by law. Electronically signed by Jenelle Mixon 09-19-2024 3:31 PM
[2024-09-19 15:47] LABS: Influenza A virus by PCR Negative (Neg); Influenza B virus by PCR Negative (Neg); RSV by PCR Negative (Neg); SARS CoV2 RNA(COVID-19) Ceph NEGATIVE (Negative)
[2024-09-19] MEDS: cefTRIAXone SODIUM 2,000 MG/50 ML BAG IV STA (16:30)
[2024-09-19 16:52] LABS: Appearance Urine Turbid (Clear); Bacteria Urine Automated 4+ (None Seen); Bilirubin Urine Negative (Negative); Blood Urine Negative (Negative); Color Urine Yellow; Glucose Urine UA Negative (Negative); Ketones Urine Trace (Negative); Leukocyte Esterase Urine 1+ (Negative); Nitrite Urine Positive (Negative); Protein Urine Trace (Negative); RBC Urine Automated 0-2 /hpf (0-2); Specific Gravity Urine 1.015 (1.000-1.030); Urobilinogen Urine Negative (Negative); pH Urine 5.5 (4.5-7.5)
--- NOTE | 2024-09-19 17:32 | History & Physical Report ---
Date of Service September 19, 2024 Assessment & Plan (1) Sepsis: Plan: UTI and severe sepsis with WBC 14.81, hypotensive (92/62), tachycardic (115), afebrile, elevated lactate on admission - leukocytosis with neutrophil predominance and left shift - procal negative - lactate 4.4 -> 1.8 - MAP = 72 -> 95 after fluid resuscitation - CXR negative Fluids: Sepsis fluid bolus for ideal body weight = 1500 - Sepsis fluid bolus of 2L NSS given in ED - defer further resuscitation on admission as has already met criteria - will give stress dose steroids given chronic prednisone use - 50 mg Hydrocortisone IV Q8 -> eventual taper - Continue Rocephin - Blood and Urine cultures pending (2) UTI (urinary tract infection): Plan: patient with urosepsis on admission - 1 documented history of UTI in 2022, pansensitive E. coli - UA showing 11-20 WBC, 11-20 hyaline casts, 6-10 epithelial cells, 4+ bacteria - see treatment plan above -Follow urine culture, blood cultures (3) Respiratory alkalosis: Plan: likely secondary to sepsis - VBG 7.44/34/23 on admission - anion gap 15 - expect to resolve with treatment above - Repeat VBG in a.m. (4) Elevated troponin I level: Plan: likely secondary to demand ischemia from sepsis 32.1 -> 35.1 - denies current CP - EKG showing sinus tachycardia, no ischemic changes - trend troponin (5) Weakness: Plan: likely secondary to sepsis and UTI - PT/OT to evaluate (6) Hypomagnesemia: Plan: 1.8 on admission start daily mg supplement trend mg (7) Hypokalemia: Plan: 3.4 on admission -> 60meq PO ordered trend BMP (8) Rheumatoid arthritis: Plan: On hydroxychloroquine and chronic prednisone 5mg daily at home - hold home prednisone given stress steroid dosing above, IV hydrocortisone 50 Mg Q8h - continue hydroxychloroquine Hyperglycemia: secondary to prednisone use; monitor on daily BMP with IV steroid use Plan Chronic stable diagnoses: 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 She presents today due to weakness that her son thought was secondary to UTI. patient was seen at bedside, history was provided by her son, Geoff. He stated that he has been taking care of her, he lives across the street. Her older son lives with her, but he is at [facility] rehab right now. The patient previously was going to [facility] for physical therapy, stopped about a month ago because she was doing much better. Her son stated that last week she had a cold that resolved on its own. He stated that she began having weakness, sputum production, headaches, and foul-smelling urine on Saturday. He knew that something was wrong because she typically gets around well. He stated that she also has had a significantly decreased appetite. When she tried to leave the house today to go visit her son at [facility], she made it to the front door and her legs seem to give out from weakness. He then brought her into the ED. The patient endorses fatigue. She denies any urinary symptoms, although was asymptomatic with her previous UTI last year. Patient denies fever, chills, dizziness, lightheadedness, vision changes, rhinorrhea, sore throat, cough, dyspnea, dyspnea on exertion, chest pain, abdominal pain, nausea, vomiting, diarrhea, constipation, dysuria, hematuria, edema, numbness, tingling. She did not take her home medications yet today, her son stated that she takes them all in the evening with dinner; will order for this evening. She wishes to be full code at this time. Updated her son, Geoff. He would like to be provided updates at [phone]. Allergies Allergy/AdvReac Type Severity Reaction Status Date / Time No Known Drug Allergies Allergy Unknown . Verified 09/04/24 14:49 Home Medications Medication Instructions Recorded Confirmed Type calcium 600 mg (as 1 cap PO PM 01/26/22 09/19/24 History carbonate)-vitamin D3 5 mcg (200 unit) capsule (Calcium 600 + D(3)) B12 1 tab PO PM 09/19/24 09/19/24 History amlodipine 2.5 mg tablet 2.5 mg PO PM 09/19/24 09/19/24 History amlodipine 5 mg tablet 5 mg PO PM 09/19/24 09/19/24 History cholecalciferol (vitamin D3) 125 5,000 unit PO PM 09/19/24 09/19/24 History mcg (5,000 unit) capsule hydroxychloroquine 200 mg tablet 200 mg PO PM 09/19/24 09/19/24 History prednisone 5 mg tablet 5 mg PO PM 09/19/24 09/19/24 History Past Med/Surg History Problem List Respiratory alkalosis Hypokalemia Hypomagnesemia UTI (urinary tract infection) Sepsis Elevated troponin I level (Acute) Weakness (Acute) Acute pyelonephritis (Acute) Greater trochanteric pain syndrome Vitamin D deficiency disease (Acute) Secondary hyperparathyroidism (Acute) SNHL (sensorineural hearing loss) (Acute) Rheumatoid arthritis (Acute) Osteoporosis (Acute) Osteopenia (Acute) Multiple thyroid nodules (Acute) MGUS (monoclonal gammopathy of unknown significance) (Acute) Left hip pain (Acute) Hyperglycemia (Acute) Greater trochanteric bursitis (Acute) Forgetfulness (Acute) Irregular heart rate Vitamin B12 deficiency Elevated hemoglobin Hypertension Surgical History S/P tubal ligation S/P tonsillectomy Family History Father Congestive heart failure Myocardial infarction Other Breast cancer Denies family history of Ovarian cancer Prostate cancer Colorectal cancer Social History Smoking Status: Former smoker Second Hand Exposure: No; Do You Dip or Chew Tobacco: No; Hx Alcohol Use: No Hx Substance Use: No Preferred Language: Macedonian Communication Ability: Effective Visual Impairment: No Limitations Hearing Ability: Normal B[employer] Painter Required: No Beliefs That Will Affect Care: None marital status: / Current Living Situation: Family current occupational status: retired Other Information That Helps Us Care for You: No Feels Safe at Home: Yes Safety Concerns: Feels Safe At This Time Dental Care, Regularly: Yes Physical Activity Frequency: Does not Exercise Seatbelt Use: always Assistive Devices: Cane and Glasses Review of Systems Review of Systems: see HPI Physical Exam Physical Exam: The patient is awake, alert and oriented 3, well developed and well nourished, normocephalic and atraumatic, in no acute distress. Non-toxic appearing. HEENT- EOMI, mucous membranes moist. Hearing grossly intact. Heart-normal S1 and S2. No murmurs, rubs or gallops. Lungs-clear bilaterally, no respiratory distress, no accessory muscle use. Abdomen-normal bowel sounds and soft. No ascites noted. Non-tender. Extremities- no clubbing, cyanosis. Mild edema to BL LE. Rheumatologic-normal range of motion. Psychiatric-normal affect. Results & Data Results & Data Vital Signs (Past 12 Hours) Vital Signs Temp Pulse Pulse Resp BP BP Pulse Ox 09/19/24 16:30 76 16 136/74 96 09/19/24 16:02 78 09/19/24 16:00 80 16 124/73 95 09/19/24 15:31 79 16 102/71 94 09/19/24 14:34 94 09/19/24 14:27 100 H 18 112/71 92 09/19/24 14:13 36.4 C L 115 H 20 92/67 L 94 O2 Del Method 09/19/24 16:30 Room Air 09/19/24 16:02 09/19/24 16:00 Room Air 09/19/24 15:31 Room Air 09/19/24 14:34 Room Air 09/19/24 14:27 Room Air 09/19/24 14:13 Room Air Laboratory Results CBC, CMP, coags, VBG, lactate, troponin, magnesium, procalcitonin, UA reviewed Diagnostic Findings Chest x-ray reviewed Code Status & VTE Plan Code Status full code VTE Prophylaxis Plan VTE Prophylaxis will be ordered: Yes Supervising Physician Co-Signing Physician Notes PA Supervision Note: I personally saw and examined the patient. I verified all navarro points and agree with COURTNEY Aguilar with the following exceptions and/or additions: S-patient here with significant weakness, fatigue, urinary urgency and frequency and some mild nausea. No abdominal pain, no fevers or chills that she knows of. History and ROS otherwise reviewed as above O- Vitals reviewed Gen: AAOx3, NAD HEENT: Anicteric sclerae, EOMI CV: RRR no mgr nl S1S2 Pulm: CTAB no wcr Abd: +BS soft NT ND no masses or hernias Ext: Multiple deformities of hands and feet with ulnar deviation of phalanges Skin: No rashes, warm/dry Neuro: Full strength throughout A/W-36-ydip-old female here with UTI and severe sepsis, improving with IV fluids, started antibiotics Follow urine and blood cultures Trend troponin but likely myocardial demand ischemia PG Care Time/CCT Total # of Minutes Spent Total Time Spent with Patient: Total time spent is greater than 50% in coordination of care (as documented) at patient's floor/unit and/or counseling patient: Coding Level of Care Code 95460 INT INP/OBS CARE 3/75MIN Diagnoses Sepsis A41.9 UTI (urinary tract infection) N39.0 Respiratory alkalosis E87.3 Elevated troponin I level R79.89 Weakness R53.1 Hypomagnesemia E83.42 Hypokalemia E87.6 Rheumatoid arthritis M06.9
[2024-09-19] MEDS: HYDROCORTISONE SOD SUCCINATE 100 MG/2 ML VIAL IV STA (18:09)
[2024-09-19] MEDS: MAGNESIUM OXIDE 400 MG TAB PO SCH (18:48)
[2024-09-19] MEDS: POTASSIUM CHLORIDE CRTAB 20 MEQ TABCR PO STA (18:49)
--- NOTE | 2024-09-19 19:37 | Electrocardiogram Report ---
Test Reason : Blood Pressure : */* mmHG Vent. Rate : 105 BPM Atrial Rate : 105 BPM P-R Int : 160 ms QRS Dur : 80 ms QT Int : 342 ms P-R-T Axes : 37 -47 63 degrees QTcB Int : 452 ms Sinus tachycardia Left axis deviation Moderate voltage criteria for LVH, may be normal variant Poor R wave progression, consider anterior NC vs. lead placement vs. LVH Nonspecific ST abnormality Abnormal ECG Confirmed by Robson Rice ([id number] on 09/19/2024 7:37:10 PM Referred By: REFERRED SELF Confirmed By: Robson Rice
[2024-09-19] MEDS ORDERED: ONDANSETRON INJ 2 MG/ML 2 ML VIAL IV PRN (20:22)
[2024-09-19] MEDS ORDERED: ACETAMINOPHEN 325 MG TAB PO PRN (20:22)
[2024-09-19] MEDS ORDERED: DOCUSATE SODIUM 100 MG CAP PO PRN (20:22)
[2024-09-19] MEDS: HYDROXYCHLOROQUINE SULFATE 200 MG TAB PO SCH (22:16)
[2024-09-19] MEDS: CALCIUM 600MG + VIT D 400 IU TAB PO SCH (22:16)
[2024-09-19] MEDS: ENOXAPARIN INJ 40 MG/0.4 ML SYR SQ SCH (22:55)
[2024-09-19] MEDS: CHOLECALCIFEROL 125 MCG (5,000 UNITS) TAB PO SCH (22:56)
[2024-09-20] MEDS ORDERED: HYDROCORTISONE SOD SUCCINATE 100 MG/2 ML VIAL IV SCH (01:45)
[2024-09-20] MEDS: HYDROCORTISONE SOD 50 MG in SYRINGE 0 ML IV SCH (01:59)
[2024-09-20 05:56] LABS: Base Excess VBG -0.2 mEq/L; HCO3 VBG 22 mmol/L; Oxygen Saturation VBG 91.5 %; PCO2 VBG 29 mmHg (38-50); PO2 VBG 58 mmHg; pH VBG 7.49 (7.36-7.41)
[2024-09-20 06:06] LABS: Basophils # (auto) 0.05 K/uL (0.00-0.20); Basophils % (auto) 0.4 %; Eosinophils # (auto) 0.02 K/uL (0.00-0.50); Eosinophils % (auto) 0.2 %; Hematocrit (blood only) 42.1 % (37.0-47.0); Hemoglobin 13.7 g/dl (12.0-16.0); Immature Granulocytes # (auto) 0.27 K/uL (0.01-0.20); Immature Granulocytes % (auto) 2.1 %; Lymphocytes # (auto) 0.66 K/uL (1.20-3.40); Lymphocytes % (auto) 5.2 %; Mean Corpuscular Hemoglobin 27.8 pg (25.0-34.0); Mean Corpuscular Hgb Conc 32.5 g/dL (32.0-36.0); Mean Corpuscular Volume 85.4 fL (80.0-100.0); Mean Platelet Volume 10.4 fL (9.4-12.4); Monocytes # (auto) 0.43 K/uL (0.11-0.59); Monocytes % (auto) 3.4 %; Neutrophils # (auto) 11.29 K/uL (1.40-6.50); Neutrophils % (auto) 88.7 %; Platelet Count 214 K/uL (130-400); RDW Coefficient of Variation 14.7 % (11.5-14.5); RDW Standard Deviation 46.5 fL (36.4-46.3); Red Blood Count 4.93 M/uL (4.20-5.40); White Blood Count 12.72 K/ul (4.8-10.8)
[2024-09-20 06:22] LABS: BUN Creatinine Ratio 23.8 (10-20); Calcium 8.7 mg/dl (8.6-10.3); Creatinine Clr Calc Pharmacy 53.5 ml/min; Magnesium 1.7 mg/dl (1.7-2.4); Potassium 4.2 mmol/L (3.5-5.1)
[2024-09-20] MEDS: cefTRIAXone SODIUM 2,000 MG/50 ML BAG IV SCH (16:28)
--- NOTE | 2024-09-20 17:23 | Hospitalist Progress Note ---
Date of Service September 20, 2024 Assessment & Plan (1) Sepsis: Plan: UTI and severe sepsis with WBC 14.81, hypotensive (92/62), tachycardic (115), afebrile, elevated lactate on admission With leukocytosis with neutrophil predominance and left shift, procal negative , lactate 4.4 -> 1.8 MAP = 72 -> 95 after fluid resuscitation CXR negative Received IVFs, IV stress dose steroids and BPs improved Ur cx with Klebsiella, sensitivities pending BCxs no growth to date-follow Wean IV hydrocort to 50mg bid today, then 50mg IV tomorrow, then resume home po prednisone 5mg daily after that Continue Rocephin Hold home Plaquenil while treating infection (2) UTI (urinary tract infection): Plan: as above (3) Elevated troponin I level: Plan: likely secondary to demand ischemia from sepsis Trop 32.1 -> 35.1--> 30 Denies CP, EKG showing sinus tachycardia, no ischemic changes No events on tele-can downgrade off tele (4) Weakness: Plan: likely secondary to sepsis and UTI PT/OT to evaluate -pending Giving stress dose steroids (5) Rheumatoid arthritis: Plan: On hydroxychloroquine and chronic prednisone 5mg daily at home Giving IV hydrocortisone and taper to po prednisone as above Hold hydroxychloroquine while treating infection Plan Chronic stable diagnoses: 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 osteoporosis workup - follows with hematology, stable thyroid nodules - incidentally found on CT, followed by PCP, stable, TSH normal in 10/2023 osteoporosis - continue home vitamin D supplements HTN - holding home amlodipine given hypotension initially; BPs normal-continue to hold and resume once BPs become elevated VTE ppx: Lovenox Code status: Full Dispo: downgrade to med/surg off tele, await PT/OT evals to see if needs SNF/rehab, awaiting final urine cx result, possible dc in 1-2 days Admission and Anticipated Discharge Date Admission Date: September 19, 2024 Subjective Pt feeling tired, otherwise no pain anywhere, no SOB, CP. Tele with NSR, rates 70-80s Physical Exam Constitutional: WD/WN, vitals as above Respiratory: normal respiratory effort, lungs clear to auscultation Cardiovascular: RRR, no murmur, no edema Gastrointestinal (Abdomen): normal bowel sounds, soft, nontender, no hepatosplenomegaly Musculoskeletal: Extremities: + extremities abnormal to inspection (hands and feet with deformities, ulnar deviation of phalanges) Psychiatric: A+Ox3, euthymic affect Results & Data Results & Data Vital Signs (Past 12 Hours) Vital Signs Temp Pulse Pulse Resp BP Pulse Ox O2 Del Method 09/20/24 16:00 36.7 C 88 20 126/79 98 Room Air 09/20/24 12:00 36.8 C 80 22 138/74 98 Room Air 09/20/24 07:27 36.5 C 88 20 146/76 H 97 Room Air 09/20/24 07:00 78 Laboratory Results CBC,BMP, magnesium, troponin reviewed Ur cx reviewed PG Care Time/CCT Total # of Minutes Spent Total Time Spent with Patient: Total time spent is greater than 50% in coordination of care (as documented) at patient's floor/unit and/or counseling patient: Coding Level of Care Code 94372 SUB INP/OBS CARE 2/35MIN Diagnoses Sepsis A41.9 UTI (urinary tract infection) N39.0 Elevated troponin I level R79.89 Weakness R53.1 Rheumatoid arthritis M06.9
[2024-09-21 07:24] LABS: Basophils # (auto) 0.08 K/uL (0.00-0.20); Basophils % (auto) 0.7 %; Eosinophils # (auto) 0.17 K/uL (0.00-0.50); Eosinophils % (auto) 1.5 %; Hematocrit (blood only) 41.9 % (37.0-47.0); Hemoglobin 13.8 g/dl (12.0-16.0); Immature Granulocytes # (auto) 0.46 K/uL (0.01-0.20); Lymphocytes # (auto) 1.43 K/uL (1.20-3.40); Lymphocytes % (auto) 12.5 %; Mean Corpuscular Hemoglobin 28.1 pg (25.0-34.0); Mean Corpuscular Hgb Conc 32.9 g/dL (32.0-36.0); Mean Corpuscular Volume 85.3 fL (80.0-100.0); Mean Platelet Volume 10.1 fL (9.4-12.4); Monocytes # (auto) 1.05 K/uL (0.11-0.59); Monocytes % (auto) 9.2 %; Neutrophils # (auto) 8.23 K/uL (1.40-6.50); Neutrophils % (auto) 72.1 %; Platelet Count 280 K/uL (130-400); RDW Coefficient of Variation 14.8 % (11.5-14.5); RDW Standard Deviation 46.9 fL (36.4-46.3); Red Blood Count 4.91 M/uL (4.20-5.40); White Blood Count 11.42 K/ul (4.8-10.8)
[2024-09-21 07:29] LABS: BUN Creatinine Ratio 22.1 (10-20); Creatinine Clr Calc Pharmacy 49.6 ml/min; Magnesium 1.8 mg/dl (1.7-2.4); Potassium 3.4 mmol/L (3.5-5.1)
[2024-09-21 07:37] VITALS: TEMP 98.2
[2024-09-21] MEDS: HYDROCORTISONE SOD 50 MG in SYRINGE 0 ML IV SCH (07:53)
--- NOTE | 2024-09-21 11:42 | Discharge Summary ---
Discharge Summary Date of Service September 21, 2024 Principal Dx & Hospital Course #1 = Principal Diagnosis (1) Sepsis: Present on admission. Now resolved. (2) UTI (urinary tract infection): Klebsiella isolated. Treated while hospitalized with intravenous Rocephin. Home on Augmentin for a few more days (3) Elevated troponin I level: Mild. No evidence of acute coronary syndrome. No acute EKG changes. No chest pain (4) Weakness: Present on admission. Now resolved (5) Rheumatoid arthritis: On hydroxychloroquine and chronic prednisone 5mg daily at home. Treated while hospitalized with intravenous hydrocortisone. She was switched back to oral prednisone at discharge. Plan Home today, September 21. Continue Augmentin oral antibiotic for 3 more days. Admission HPI Per Admitting Provider Patient is a 84-year-old female with a past medical history of rheumatoid arthritis, osteoporosis, thyroid nodules, hypertension. She presents today due to weakness that her son thought was secondary to UTI. patient was seen at bedside, history was provided by her son, Geoff. He stated that he has been taking care of her, he lives across the street. Her older son lives with her, but he is at [facility] rehab right now. The patient previously was going to [facility] for physical therapy, stopped about a month ago because she was doing much better. Her son stated that last week she had a cold that resolved on its own. He stated that she began having weakness, sputum production, headaches, and foul-smelling urine on Saturday. He knew that something was wrong because she typically gets around well. He stated that she also has had a significantly decreased appetite. When she tried to leave the house today to go visit her son at [facility], she made it to the front door and her legs seem to give out from weakness. He then brought her into the ED. The patient endorses fatigue. She denies any urinary symptoms, although was asymptomatic with her previous UTI last year. Patient denies fever, chills, dizziness, lightheadedness, vision changes, rhinorrhea, sore throat, cough, dyspnea, dyspnea on exertion, chest pain, abdominal pain, nausea, vomiting, diarrhea, constipation, dysuria, hematuria, edema, numbness, tingling. She did not take her home medications yet today, her son stated that she takes them all in the evening with dinner; will order for this evening. She wishes to be full code at this time. Updated her son, Geoff. He would like to be provided updates at [phone]. Discharge Exam General-alert and oriented x3, no fever, no chills HEENT-head atraumatic and normocephalic, pupils equal and reactive to light, extraocular muscles intact Neck-no lymphadenopathy or thyromegaly, trachea midline Chest-clear to auscultation. No rales, wheezing or rhonchi Cardiac-regular rate and rhythm, normal S1 and S2 Abdomen-normal bowel sounds, no hepatosplenomegaly Extremities-rheumatoid arthritis changes bilateral hands Neuro-cranial nerves II through XII intact, motor and sensory function within normal limits, strength symmetrical, no focal deficits Psych-normal affect, normal mood Discharge Plan Discharge Items Patient Disposition: Home - Self-Care Reason For Visit: UROSEPSIS Discharge Diagnosis: Urinary tract infection, sepsis, elevated troponin without acute coronary syndrome Activity: Resume your previous activity Non-emergency contact: Primary Care Provider Call non-emergency contact if: your symptoms worsen Follow-up/Referrals: Eliel Lynn MD [Primary Care Provider] - Diet: Regular Addtl Attending Provider Instructions: Take antibiotic twice daily for 3 more days Pending Studies at Discharge: No Stand-Alone Forms: [employer], Smoking Cessation Medications and DC Order Prescriptions: New amoxicillin-pot clavulanate 875-125 mg tablet 1 tab PO BID Qty: 6 0RF Continued Calcium 600 + D(3) 600 mg-5 mcg (200 unit) capsule 1 cap PO PM B12 1 tab PO PM Rx Instructions: unknown strength prednisone 5 mg tablet 5 mg PO PM amlodipine 2.5 mg tablet 2.5 mg PO PM Rx Instructions: with 5 mg tab amlodipine 5 mg tablet 5 mg PO PM hydroxychloroquine 200 mg tablet 200 mg PO PM cholecalciferol (vitamin D3) 125 mcg (5,000 unit) capsule 5,000 unit PO PM Discharge Orders: Discharge Order (Routine); Ordered 09/21/24 Ordered By: Mani Jamil Admission Data Admit Date/Time: 09/19/24 17:52 Attending Provider: Mani Jamil Admit Provider: Hali Young Primary Care Provider: Eliel Lynn V. Other Providers: Hali Young Hospital Stay Data Consultations 09/19/24 17:14 ED Decision to Admit Stat Pending Results Patient Have Any Pending Studies at Discharge: No Discharge Instructions Given to Patient (Per Discharging Provider) Take antibiotic twice daily for 3 more days Total Time Total Time Spent Total Time Spent (In Minutes): 50 minutes Coding Level of Care Code 62339 INP/OBS DISCH >30 MIN Diagnoses Sepsis A41.9 UTI (urinary tract infection) N39.0 Elevated troponin I level R79.89 Weakness R53.1 Rheumatoid arthritis M06.9
[2024-09-21 14:41] VITALS: BP 142/90; PULSE 112; RESP 18; O2SAT 97
[2024-09-21] MEDS ORDERED: predniSONE 5 MG TAB PO SCH (21:00)
[2024-09-21] MEDS ORDERED: HYDROXYCHLOROQUINE SULFATE 200 MG TAB PO SCH (21:00)
== END 2024-09-21 16:07 | disposition home or self-care (01) | DRG 872 ==
LOC: SUATTDRO → ED 14:12 → EDINP 17:52 → SUATTDRO 17:52 → 2S 20:50 → 3W 09-20 21:52

== ENCOUNTER 2024-10-07 15:35 | Inpatient (IN) ==
[2024-10-07 16:33] LABS: Basophils # (auto) 0.07 K/uL (0.00-0.20); Basophils % (auto) 0.4 %; Eosinophils # (auto) 0.51 K/uL (0.00-0.50); Eosinophils % (auto) 2.8 %; Hematocrit (blood only) 51.8 % (37.0-47.0); Hemoglobin 16.3 g/dl (12.0-16.0); Immature Granulocytes # (auto) 0.39 K/uL (0.01-0.20); Immature Granulocytes % (auto) 2.1 %; Lymphocytes # (auto) 1.07 K/uL (1.20-3.40); Lymphocytes % (auto) 5.8 %; Mean Corpuscular Hemoglobin 27.2 pg (25.0-34.0); Mean Corpuscular Hgb Conc 31.5 g/dL (32.0-36.0); Mean Corpuscular Volume 86.3 fL (80.0-100.0); Mean Platelet Volume 9.9 fL (9.4-12.4); Monocytes # (auto) 0.89 K/uL (0.11-0.59); Monocytes % (auto) 4.8 %; Neutrophils # (auto) 15.53 K/uL (1.40-6.50); Neutrophils % (auto) 84.1 %; Platelet Count 372 K/uL (130-400); RDW Coefficient of Variation 15.5 % (11.5-14.5); RDW Standard Deviation 48.1 fL (36.4-46.3); White Blood Count 18.46 K/ul (4.8-10.8)
--- NOTE | 2024-10-07 16:35 | Emergency Department Note ---
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 Patient hospitalized here from [facility] with sepsis UTI. Since being home has had ambulatory difficulty and weakness. Has not fallen but really not walking well. Not having good intake although has an appetite but often throws up. No significant abdominal or head pain reported. No chest pain reported. Evidently vomited in the doctor's office and had low blood pressures present here for reevaluation. Completed course of Augmentin over the past 7 days but still not herself so went to the office today for reevaluation. Has been primarily caring for her and she is been soiling her self and urinary her self as she can get to the bathroom. Mental status seems to been improving according to son and she is not more confused if anything more attentive recently. PAST MEDICAL HISTORY: As noted above MEDICATIONS: Reviewed home medications SOCIAL HISTORY: Lives at home with son PHYSICAL EXAM: GENERAL: alert and oriented in no acute distress on stretcher Head: normocephalic and atraumatic EYES: No injection, discharge or icterus. NECK: Trachea midline. ENT: Mucous membranes pink and somewhat tacky LUNGS: Airway patent. No retractions. Breath sounds clear HEART: Regular rate and rhythm. No chest wall tenderness ABDOMEN: Soft and non-tender, without guarding or rebound. SKIN: Acyanotic, warm, dry with some diffuse redness over the entire sacrum but no violation into the subcutaneous area or open wound noted EXTREMITIES: Without significant tenderness or deformity lower extremities with trace lower extremity swelling. NEUROLOGICAL: No focal deficits. No aphasia. No facial droop or slurred speech. EK bpm sinus tachycardia occasional PVC. No acute ST segment elevation or depression with QTc 453. Posterior fascicular block noted. CONTINUOUS CARDIAC MONITORING: was ordered and showed a heart rate of bpm in normal sinus rhythm to sinus tachycardia Patient's laboratory studies and imaging reviewed. Differential includes Infection, dehydration, metabolic abnormality, hypo/hyperglycemia, electrolyte disturbance, anemia, hypoxia, cardiac sources, intracerebral event, toxicologic, neurologic, as well as other pathologies. IMPRESSION/MEDICAL DECISION MAKING: Initial vitals here without fever. Borderline tachycardia. Has been having episodes of vomiting and some decreased intake. Has been having significant weakness and ambulatory dysfunction. Referred from the office due to the vomiting and low blood pressure there. Recently hospitalized several weeks ago for UTI. Completed course of Augmentin yesterday. Given her decreased intake and dry mucous membranes give a 500 cc fluid bolus. Urine cath ordered lactate and blood cultures. Lactate is elevated here initially 3.3. Does have worsened leukocytosis of 18.4 today. Electrolytes without other severe abnormality signs of acute renal dysfunction. No transaminitis. No significant respiratory symptoms but respiratory viral panel was sent. Respiratory panel is negative. Given recurrent vomiting with the laboratory abnormalities we will complete a CT of the head as well as CT abdomen pelvis to exclude any acute intracranial abnormality, recurrent vomiting or weakness as well as any intra-abdominal pathology. Has been having some diarrhea and doubt obstruction. UA here without evidence of infection. Was empirically given a dose of cefepime based on initial laboratory results after blood cultures obtained with concerns for sepsis. She does not appear meningitic. CT of the head without acute findings per radiology report. CT abdomen pelvis per radiology was significant for findings concerning for extensive DVT into the distal IVC. Discussed with patient and son at bedside. Will start on heparin anticoagulation given this finding. Not hypoxic or significantly tachycardic. Troponin at baseline in the mid 30s. Probably has some component of PE but will defer CT PE at this time as she will need anticoagulation either way. Do not believe she be a candidate for thrombolysis or thrombectomy in any event given her stability. Blood cultures are pending in case there is on-call infectious etiology. Will bring in for further care and monitoring. Hypercoagulability panel ordered. Discussed with Dr. Lester vascular surgery the clot findings and he recommended anticoagulation at this point. DIAGNOSIS: Weakness, ambulatory dysfunction, DVT of the right femoral vein to IVC DISPOSITION: Hospitalist will evaluate Patient was agreeable with this plan. Critical Care I have personally spent 35 minutes of critical care time in the direct management of this patient. This includes bedside care, interpretation of diagnostic studies, and testing, discussion with consultants, patient, and family members, and other required patient management activities. These 35 minutes is in excess of all separately billable procedures. 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 (Acute) Weakness (Acute) Hypokalemia Hypomagnesemia UTI (urinary tract infection) Sepsis Elevated troponin I level (Acute) Greater trochanteric pain syndrome Vitamin D deficiency disease (Acute) Secondary hyperparathyroidism (Acute) SNHL (sensorineural hearing loss) (Acute) Osteoporosis (Acute) Osteopenia (Acute) Multiple thyroid nodules (Acute) MGUS (monoclonal gammopathy of unknown significance) (Acute) Left hip pain (Acute) Hyperglycemia (Acute) Greater trochanteric bursitis (Acute) Forgetfulness (Acute) Irregular heart rate Vitamin B12 deficiency Elevated hemoglobin Hypertension Medical History (Updated 10/07/24 @ 18:50 by Mario Sanchez M.D.) Rheumatoid arthritis Surgical History S/P tubal ligation S/P tonsillectomy Family History Father Congestive heart failure Myocardial infarction Other Breast cancer Denies family history of Ovarian cancer Prostate cancer Colorectal cancer Social History Smoking Status: Former smoker Second Hand Exposure: No; Do You Dip or Chew Tobacco: No; Hx Alcohol Use: No Hx Substance Use: No Preferred Language: Arabic Communication Ability: Effective Visual Impairment: No Limitations Hearing Ability: Normal Concaving Machine Operator Required: No Beliefs That Will Affect Care: None marital status: / Current Living Situation: Family current occupational status: retired Feels Safe at Home: Yes Dental Care, Regularly: Yes Physical Activity Frequency: Does not Exercise Seatbelt Use: always Assistive Devices: Cane Allergies Allergies Allergy/AdvReac Type Severity Reaction Status Date / Time No Known Drug Allergies Allergy Unknown . Verified 10/07/24 14:39 Home Meds Home Medications Medication Instructions Recorded Confirmed calcium 600 mg (as 1 cap PO PM 01/26/22 10/07/24 carbonate)-vitamin D3 5 mcg (200 unit) capsule (Calcium 600 + D(3)) amlodipine 2.5 mg tablet 2.5 mg PO PM 09/19/24 10/07/24 amlodipine 5 mg tablet 5 mg PO PM 09/19/24 10/07/24 hydroxychloroquine 200 mg tablet 200 mg PO PM 09/19/24 10/07/24 prednisone 5 mg tablet 5 mg PO PM 09/19/24 10/07/24 cyanocobalamin (vitamin B-12) 1,000 mcg PO HS 10/07/24 10/07/24 1,000 mcg tablet (Vitamin B-12) Previous Rx's Medication Instructions Recorded cholecalciferol (vitamin D3) 125 5,000 unit PO PM #90 caps 09/29/24 mcg (5,000 unit) capsule mirtazapine 7.5 mg tablet 7.5 mg PO DAILY #30 tabs 09/29/24 amoxicillin 875 mg-potassium 1 tab PO BID 7 days #14 tabs 09/30/24 clavulanate 125 mg tablet Results & Data (ED) Vital Signs Vital Signs - 24 hr 10/07/24 15:44 10/07/24 16:15 10/07/24 16:48 Temperature 36.5 C Temperature Source Oral Pulse Rate 104 H 94 H Pulse Rate [Right Brachial] Pulse Rhythm [Right Brachial] Pulse Strength [Right Brachial] Respiratory Rate 18 Respiratory Effort / Characteristics Non-Labored Spontaneous Respiratory Depth Normal Respiratory Pattern Blood Pressure 100/72 Blood Pressure [Right Arm] Blood Pressure Mean 81 Blood Pressure Mean [Right Arm] Blood Pressure Position Sitting Blood Pressure Position [Right Arm] Pulse Oximetry 98 Oxygen Delivery Method Room Air Room Air Sepsis Recent Fever Within 48 Hours No Sepsis New/Unexplained Change in Mental Status No Sepsis Action Taken by Nursing No Action Required 10/07/24 17:36 10/07/24 19:00 10/07/24 20:00 Temperature Temperature Source Pulse Rate 90 Pulse Rate [Right Brachial] 87 85 Pulse Rhythm [Right Brachial] Regular Regular Pulse Strength [Right Brachial] Normal Normal Respiratory Rate 18 20 20 Respiratory Effort / Characteristics Non-Labored Non-Labored Respiratory Depth Normal Normal Respiratory Pattern Regular Regular Blood Pressure Blood Pressure [Right Arm] 124/77 126/79 Blood Pressure Mean Blood Pressure Mean [Right Arm] 92 94 Blood Pressure Position Blood Pressure Position [Right Arm] Sitting Lying Pulse Oximetry 92 92 95 Oxygen Delivery Method Room Air Room Air Room Air Sepsis Recent Fever Within 48 Hours Sepsis New/Unexplained Change in Mental Status Sepsis Action Taken by Nursing Laboratory Data 10/07/24 16:11 10/07/24 16:11 Lab Results 10/07/24 10/07/24 10/07/24 Range/Units 16:11 16:12 17:10 WBC 18.46 H (4.8-10.8) K/ul RBC 6.00 H (4.20-5.40) M/uL Hgb 16.3 H (12.0-16.0) g/dl Hct 51.8 H (37.0-47.0) % MCV 86.3 (80.0-100.0) fL MCH 27.2 (25.0-34.0) pg MCHC 31.5 L (32.0-36.0) g/dL RDW Std Deviation 48.1 H (36.4-46.3) fL RDW Coeff of Andrés 15.5 H (11.5-14.5) % Plt Count 372 (130-400) K/uL MPV 9.9 (9.4-12.4) fL Immature Gran % (Auto) 2.1 % Neut % (Auto) 84.1 % Lymph % (Auto) 5.8 % [place] % (Auto) 4.8 % Eos % (Auto) 2.8 % Baso % (Auto) 0.4 % Neut # (Auto) 15.53 H (1.40-6.50) K/uL Lymph # (Auto) 1.07 L (1.20-3.40) K/uL [place] # (Auto) 0.89 H (0.11-0.59) K/uL Eos # (Auto) 0.51 H (0.00-0.50) K/uL Baso # (Auto) 0.07 (0.00-0.20) K/uL Immature Gran # (Auto) 0.39 H (0.01-0.20) K/uL PT 11.0 (9.0-12.0) Seconds INR 1.0 (0.9-1.1) APTT (21-31) Seconds PTT Ratio Sodium 143 (136-145) mmol/L Potassium 3.3 L (3.5-5.1) mmol/L Chloride 105 (98-107) mmol/L Carbon Dioxide 22 (21-32) mmol/L Anion Gap 16 H (3-11) BUN 17 (6-23) mg/dl Creatinine 0.97 (0.6-1.2) mg/dl Est Cr Clr Drug Dosing 33.2 ml/min eGFR 57.98 BUN/Creatinine Ratio 17.5 (10-20) Glucose 185 H (70-99(Fasting)) mg/dl Lactate 3.3 H* (0.4-2.0) mmol/L Calcium 9.4 (8.6-10.3) mg/dl Magnesium 1.9 (1.7-2.4) mg/dl Total Bilirubin 1.4 H (0.2-1.0) mg/dl AST 16 (13-39) U/L ALT 15 (7-52) U/L Alkaline Phosphatase 89 (34-104) U/L Troponin I High Sens 34.5 H (0-14) pg/ml Total Protein 6.6 (6.0-8.3) gm/dl Albumin 3.6 (3.4-5.0) gm/dl Globulin 3.0 (2.5-4.0) gm/dl Albumin/Globulin Ratio 1.2 (0.9-2) Lipase 17 (11-82) U/L Procalcitonin 0.19 (0-0.5) ng/ml TSH 3.181 (0.300-4.500) uIu/ml Urine Color Dark Yellow Urine Appearance Turbid A (Clear) Urine pH 5.5 (4.5-7.5) Ur Specific [place] 1.023 (1.000-1.030) Urine Protein 1+ H (Negative) Urine Glucose (UA) Negative (Negative) Urine Ketones Trace H (Negative) Urine Blood Negative (Negative) Urine Nitrite Negative (Negative) Urine Bilirubin 1+ H (Negative) Urine Urobilinogen Negative (Negative) Ur Leukocyte Esterase Negative (Negative) Urine WBC (Auto) 0-5 (0-5) /hpf Urine RBC (Auto) 11-20 H (0-2) /hpf U Hyaline Cast (Auto) >20 H (0-2) /lpf U Epithel Cells (Auto) 3-5 H (0-2) /hpf Urine Bacteria (Auto) None Seen (None Seen) Hyaline Casts Present A (None Presnt) /lpf Urine Mucus Present A (None Prsent) Adenovirus (PCR) Not Detected (NotDetected) B. pertussis DNA (PCR) Not Detected (NotDetected) B.parapertussis DNA PCR Not Detected (NotDetected) C. pneumoniae DNA (PCR) Not Detected (NotDetected) Coronavirus OC43 (PCR) Not Detected (NotDetected) Coronavirus HKU1 (PCR) Not Detected (NotDetected) Coronavirus 229E (PCR) Not Detected (NotDetected) SARS-CoV-2 (PCR) Not Detected (NotDetected) Coronavirus NL63 (PCR) Not Detected (NotDetected) Human Metapneumovir PCR Not Detected (NotDetected) Influenza Type A (PCR) Not Detected (NotDetected) Influenza Type B (PCR) Not Detected (NotDetected) M. pneumoniae (PCR) Not Detected (NotDetected) Parainfluenza 1 (PCR) Not Detected (NotDetected) Parainfluenza 2 (PCR) Not Detected (NotDetected) Parainfluenza 3 (PCR) Not Detected (NotDetected) Parainfluenza 4 (PCR) Not Detected (NotDetected) RSV (PCR) Not Detected (NotDetected) Entero/Rhino (PCR) Not Detected (NotDetected) 10/07/24 Range/Units 19:52 WBC (4.8-10.8) K/ul RBC (4.20-5.40) M/uL Hgb (12.0-16.0) g/dl Hct (37.0-47.0) % MCV (80.0-100.0) fL MCH (25.0-34.0) pg MCHC (32.0-36.0) g/dL RDW Std Deviation (36.4-46.3) fL RDW Coeff of Andrés (11.5-14.5) % Plt Count (130-400) K/uL MPV (9.4-12.4) fL Immature Gran % (Auto) % Neut % (Auto) % Lymph % (Auto) % [place] % (Auto) % Eos % (Auto) % Baso % (Auto) % Neut # (Auto) (1.40-6.50) K/uL Lymph # (Auto) (1.20-3.40) K/uL [place] # (Auto) (0.11-0.59) K/uL Eos # (Auto) (0.00-0.50) K/uL Baso # (Auto) (0.00-0.20) K/uL Immature Gran # (Auto) (0.01-0.20) K/uL PT (9.0-12.0) Seconds INR (0.9-1.1) APTT 25 (21-31) Seconds PTT Ratio 0.9 Sodium (136-145) mmol/L Potassium (3.5-5.1) mmol/L Chloride (98-107) mmol/L Carbon Dioxide (21-32) mmol/L Anion Gap (3-11) BUN (6-23) mg/dl Creatinine (0.6-1.2) mg/dl Est Cr Clr Drug Dosing ml/min eGFR BUN/Creatinine Ratio (10-20) Glucose (70-99(Fasting)) mg/dl Lactate 2.1 H* (0.4-2.0) mmol/L Calcium (8.6-10.3) mg/dl Magnesium (1.7-2.4) mg/dl Total Bilirubin (0.2-1.0) mg/dl AST (13-39) U/L ALT (7-52) U/L Alkaline Phosphatase (34-104) U/L Troponin I High Sens 47.3 H D (0-14) pg/ml Total Protein (6.0-8.3) gm/dl Albumin (3.4-5.0) gm/dl Globulin (2.5-4.0) gm/dl Albumin/Globulin Ratio (0.9-2) Lipase (11-82) U/L Procalcitonin (0-0.5) ng/ml TSH (0.300-4.500) uIu/ml Urine Color Urine Appearance (Clear) Urine pH (4.5-7.5) Ur Specific [place] (1.000-1.030) Urine Protein (Negative) Urine Glucose (UA) (Negative) Urine Ketones (Negative) Urine Blood (Negative) Urine Nitrite (Negative) Urine Bilirubin (Negative) Urine Urobilinogen (Negative) Ur Leukocyte Esterase (Negative) Urine WBC (Auto) (0-5) /hpf Urine RBC (Auto) (0-2) /hpf U Hyaline Cast (Auto) (0-2) /lpf U Epithel Cells (Auto) (0-2) /hpf Urine Bacteria (Auto) (None Seen) Hyaline Casts (None Presnt) /lpf Urine Mucus (None Prsent) Adenovirus (PCR) (NotDetected) B. pertussis DNA (PCR) (NotDetected) B.parapertussis DNA PCR (NotDetected) C. pneumoniae DNA (PCR) (NotDetected) Coronavirus OC43 (PCR) (NotDetected) Coronavirus HKU1 (PCR) (NotDetected) Coronavirus 229E (PCR) (NotDetected) SARS-CoV-2 (PCR) (NotDetected) Coronavirus NL63 (PCR) (NotDetected) Human Metapneumovir PCR (NotDetected) Influenza Type A (PCR) (NotDetected) Influenza Type B (PCR) (NotDetected) M. pneumoniae (PCR) (NotDetected) Parainfluenza 1 (PCR) (NotDetected) Parainfluenza 2 (PCR) (NotDetected) Parainfluenza 3 (PCR) (NotDetected) Parainfluenza 4 (PCR) (NotDetected) RSV (PCR) (NotDetected) Entero/Rhino (PCR) (NotDetected) Administered Medications Heparin Sodium/Dextrose (Heparin Sodium/Dextrose) 25,000 units in 500 mls @ 18 mls/hr IV .Q24H [facility]; Protocol Stop: 11/06/24 18:44 Last Admin: 10/07/24 21:05 Dose: 900 units/hr, 18 mls/hr Documented By: JOB Co-signed By: TRACEY Discontinued Medications Heparin Sodium (Porcine) (Heparin Sod (Porcine) 1000 Unit/Ml) 1 units IV NOW ONE Stop: 10/07/24 18:44 Last Admin: 10/07/24 21:06 Dose: Not Given Documented By: JOB Heparin Sodium (Porcine) (Heparin Sod (Porcine) 1000 Unit/Ml) 4,000 units IV NOW ONE Stop: 10/07/24 20:01 Last Admin: 10/07/24 21:07 Dose: 4,000 units Documented By: JOB Co-signed By: TRACEY Heparin Sodium/Dextrose (Heparin Iv Adult Wt-Based Standard W/ Initial Bolus Protocol) 1 each IV NOW STA; Protocol Stop: 10/07/24 18:29 Last Admin: 10/07/24 21:06 Dose: Not Given Documented By: JOB Sodium Chloride (Nss) 500 mls @ 999 mls/hr IV .Q31M ONE Stop: 10/07/24 16:53 Last Infusion: 10/07/24 17:22 Dose: Infused Documented By: Admin: 10/07/24 16:40 Dose: 999 mls/hr Documented By: MAIKOL Cefepime HCl (Maxipime 2000mg) 2,000 mg in 20 mls @ 5 mls/min IV NOW STA; Protocol Stop: 10/07/24 16:40 Last Admin: 10/07/24 16:42 Dose: 5 mls/min Documented By: MAIKOL Ioversol (Optiray 320 100ml) 94 ml IV ONCE ONE Stop: 10/07/24 17:53 Last Admin: 10/07/24 17:52 Dose: 94 ml Documented By: KP Ioversol (Optiray 320 125ml) 117 ml IV ONCE ONE Stop: 10/07/24 20:27 Last Admin: 10/07/24 20:26 Dose: 117 ml Documented By: DWIGHT Ondansetron HCl (Ondansetron Inj 2 Mg/Ml 2 Ml Vial) 4 mg IV NOW STA Stop: 10/07/24 16:34 Last Admin: 10/07/24 16:40 Dose: 4 mg Documented By: MAIKOL Potassium Chloride (Potassium Chloride Crtab 20 Meq Tabcr) 20 meq PO NOW STA Stop: 10/07/24 19:52 Last Admin: 10/07/24 21:15 Dose: 20 meq Documented By: JOB Imaging Data Radiologist's Impression: Chest X-Ray 10/07/24 15:55 EXAM: XR chest 1V portable CLINICAL HISTORY: weakness portable CLW TECHNIQUE: An X-ray image of the chest is obtained in AP projection. COMPARISON: 09/19/2024 FINDINGS: Cardiac monitoring leads are seen in place. Pulmonary Parenchyma: Interstitial thickening is noted in bilateral perihilarc and lower zones likely signifying chronic changes. An atelectatic band is seen in right paracardiac region. No evidence of consolidation, collapse, or focal opacities. No evidence of pleural effusion or pleural thickening. Heart and Mediastinum: Heart size and shape are normal. No mediastinal widening or masses. Aortic calcifcations are appreciated. Bony Thorax: Bony thorax appears intact without fractures or deformities. Soft Tissues: Soft tissues overlying the chest wall are unremarkable. IMPRESSION: Stable appearance of bilateral perihilar and lower zone interstitial thickening. An atelectatic band is seen in right paracardiac region.stable NO acute collapse or consolidation is seen on either side. Electronically signed by Nina Davis 10-07-2024 7:46 PM Abdomen/Pelvis CT 10/07/24 16:33 EXAM: CT Abdomen and Pelvis With Intravenous Contrast INDICATION: Weakness, vomiting, diarrhea and dehydration. Possible urosepsis. TECHNIQUE: Axial computed tomography images of the abdomen and pelvis with intravenous contrast. Sagittal and coronal reformatted images were created and reviewed. This CT exam was performed using one or more of the following dose reduction techniques: automated exposure control, adjustment of the mA and/or kV according to patient size, and/or use of iterative reconstruction technique. CONTRAST: 94ml of Optiray 320 was administered intravenously. COMPARISON: No relevant prior studies available. FINDINGS: Limitations: None. Lung bases: There is mild atelectasis in the dependent lung bases. Pleural space: No visualized pleural effusion or pneumothorax. Heart: No abnormality noted. Mediastinum: No abnormality noted. ABDOMEN: Liver: Normal size and contour. Hypodense typical of steatosis. No mass or ductal dilation. Gallbladder and bile ducts: Multiple stones and sludge in the gallbladder. No ductal dilatation. Pancreas: Homogeneous enhancement. No mass, inflammation or ductal dilation. Spleen: No significant abnormality noted. Adrenals: No significant abnormality noted. Kidneys and ureters: Normal enhancement. No mass, hydronephrosis or visualized stone. Stomach and bowel: Colonic diverticulosis without diverticulitis. No intestinal thickening or obstruction. PELVIS: Appendix: Well seen and appears normal. Bladder: There is a small bubble of air in the urinary bladder which is incompletely distended. No calcified stones. Reproductive: Calcified uterine fibroids present. The endometrial complex is thickened to 2.3 cm. ABDOMEN and PELVIS: Intraperitoneal space: No free air. No significant fluid collection. Bones/joints: Degenerative changes noted throughout the spine. No acute osseous abnormality seen. Soft tissues: No significant abnormality noted. Vasculature: There is extensive deep venous thrombosis in the right femoral and iliac veins extending into the IVC to the level of L4. Atherosclerotic calcification of the aorta and branches. No aneurysm. Lymph nodes: No pathologically enlarged lymph nodes. IMPRESSION: 1. There is extensive deep venous thrombosis in the right femoral and iliac veins extending into the IVC to the level of L4. 2. Small amount of air in the urinary bladder concerning for infection unless there has been recent instrumentation. Correlate with urinalysis. 3. Cholelithiasis. If additional imaging is clinically warranted, sonography is the modality of choice. 4. Hepatic steatosis. ACT 112: Negative or not required by law. Electronically signed by Jenelle Mixon 10-07-2024 6:[address] 10/07/24 16:33 EXAM: CT Head Without Intravenous Contrast INDICATION: Weakness and vomiting. TECHNIQUE: Axial computed tomography images of the head/brain without intravenous contrast. Sagittal and/or coronal reformats are provided. Sagittal and coronal reformatted images were created and reviewed. This CT exam was performed using one or more of the following dose reduction techniques: automated exposure control, adjustment of the mA and/or kV according to patient size, and/or use of iterative reconstruction technique. COMPARISON: No relevant prior studies available. FINDINGS: Limitations: None. Brain and extra-axial spaces: There is age appropriate cortical atrophy and chronic ischemic periventricular white matter hypodensity. No acute infarct, hemorrhage or mass noted. Bones/joints: No acute changes. Soft tissues: No significant abnormality noted. Vasculature: No acute abnormality noted. Sinuses: No layering fluid in the visualized portions of the paranasal sinuses. Mastoid air cells: No mastoid effusion. Orbits: No significant abnormality noted. IMPRESSION: Cerebral atrophy. No acute changes. ACT 112: Negative or not required by law. 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, Elevated lactic acid level Patient Disposition: Being Evaluated by Hospitalist Forms Stand Alone Forms: My [facility] Prescriptions Prescriptions: No Action amoxicillin-pot clavulanate 875-125 mg tablet 1 tab PO BID 7 Days Qty: 14 0RF Calcium 600 + D(3) 600 mg-5 mcg (200 unit) capsule 1 cap PO PM cholecalciferol (vitamin D3) 125 mcg (5,000 unit) capsule 5,000 unit PO PM Qty: 90 3RF mirtazapine 7.5 mg tablet 7.5 mg PO DAILY Qty: 30 2RF cyanocobalamin (vitamin B-12) [Vitamin B-12] 1,000 mcg Tablet 1,000 mcg PO HS prednisone 5 mg tablet 5 mg PO PM amlodipine 2.5 mg tablet 2.5 mg PO PM Rx Instructions: with 5 mg tab amlodipine 5 mg tablet 5 mg PO PM hydroxychloroquine 200 mg tablet 200 mg PO PM Referrals Referrals: Eliel Lynn MD [Primary Care Provider] -
[2024-10-07] MEDS: ONDANSETRON INJ 2 MG/ML 2 ML VIAL IV STA (16:40)
[2024-10-07] MEDS: SODIUM CHLORIDE 0.9% 500 ML IV ONE (16:40)
[2024-10-07] MEDS: CEFEPIME 2000MG 2,000 MG/20 ML SYR IV STA (16:42)
[2024-10-07 16:48] LABS: Albumin Globulin Ratio 1.2 (0.9-2); Albumin Level 3.6 gm/dl (3.4-5.0); BUN Creatinine Ratio 17.5 (10-20); Bilirubin,Total 1.4 mg/dl (0.2-1.0); Calcium 9.4 mg/dl (8.6-10.3); Creatinine Clr Calc Pharmacy 33.2 ml/min; Magnesium 1.9 mg/dl (1.7-2.4); Potassium 3.3 mmol/L (3.5-5.1); Total Protein 6.6 gm/dl (6.0-8.3)
[2024-10-07 16:54] LABS: Troponin I High Sensitivity 34.5 pg/ml (0-14)
[2024-10-07 17:04] LABS: Thyroid Stimulating Hormone 3.181 uIu/ml (0.300-4.500)
[2024-10-07 17:21] LABS: Adenovirus PCR Not Detected (NotDetected); Bordetella parapertussis PCR Not Detected (NotDetected); Bordetella pertussis PCR Not Detected (NotDetected); Chlamydia pneumoniae PCR Not Detected (NotDetected); Coronavirus 229E PCR Not Detected (NotDetected); Coronavirus CoV-2 (COVID19)PCR Not Detected (NotDetected); Coronavirus HKU1 PCR Not Detected (NotDetected); Coronavirus NL63 PCR Not Detected (NotDetected); Coronavirus OC43PCR Not Detected (NotDetected); Human Metapneumovirus PCR Not Detected (NotDetected); Influenza A PCR Not Detected (NotDetected); Influenza B PCR Not Detected (NotDetected); Mycoplasma pneumoniae PCR Not Detected (NotDetected); Parainfluenza Virus 1 PCR Not Detected (NotDetected); Parainfluenza Virus 2 PCR Not Detected (NotDetected); Parainfluenza Virus 3 PCR Not Detected (NotDetected); Parainfluenza Virus 4 PCR Not Detected (NotDetected); Respiratory Syncytial VirusPCR Not Detected (NotDetected); Rhinovirus/Enterovirus PCR Not Detected (NotDetected)
[2024-10-07] MEDS: OPTIRAY 320 100ml IV ONE (17:52)
[2024-10-07 17:57] LABS: Appearance Urine Turbid (Clear); Bacteria Urine Automated None Seen (None Seen); Bilirubin Urine 1+ (Negative); Blood Urine Negative (Negative); Cast Urine Automated >20 /lpf (0-2); Color Urine Dark Yellow; Glucose Urine UA Negative (Negative); Hyaline Casts Urine Present /lpf (None Presnt); Ketones Urine Trace (Negative); Leukocyte Esterase Urine Negative (Negative); Mucus Urine Present (None Prsent); Nitrite Urine Negative (Negative); Protein Urine 1+ (Negative); Specific Gravity Urine 1.023 (1.000-1.030); Urobilinogen Urine Negative (Negative); WBC Urine Automated 0-5 /hpf (0-5); pH Urine 5.5 (4.5-7.5)
--- NOTE | 2024-10-07 17:57 | CT Scan Report ---
EXAM: CT Head Without Intravenous Contrast INDICATION: Weakness and vomiting. TECHNIQUE: Axial computed tomography images of the head/brain without intravenous contrast. Sagittal and/or coronal reformats are provided. Sagittal and coronal reformatted images were created and reviewed. This CT exam was performed using one or more of the following dose reduction techniques: automated exposure control, adjustment of the mA and/or kV according to patient size, and/or use of iterative reconstruction technique. COMPARISON: No relevant prior studies available. FINDINGS: Limitations: None. Brain and extra-axial spaces: There is age appropriate cortical atrophy and chronic ischemic periventricular white matter hypodensity. No acute infarct, hemorrhage or mass noted. Bones/joints: No acute changes. Soft tissues: No significant abnormality noted. Vasculature: No acute abnormality noted. Sinuses: No layering fluid in the visualized portions of the paranasal sinuses. Mastoid air cells: No mastoid effusion. Orbits: No significant abnormality noted. IMPRESSION: Cerebral atrophy. No acute changes. ACT 112: Negative or not required by law. Electronically signed by Jenelle Mixon 10-07-2024 5:57 PM
--- NOTE | 2024-10-07 18:23 | CT Scan Report ---
EXAM: CT Abdomen and Pelvis With Intravenous Contrast INDICATION: Weakness, vomiting, diarrhea and dehydration. Possible urosepsis. TECHNIQUE: Axial computed tomography images of the abdomen and pelvis with intravenous contrast. Sagittal and coronal reformatted images were created and reviewed. This CT exam was performed using one or more of the following dose reduction techniques: automated exposure control, adjustment of the mA and/or kV according to patient size, and/or use of iterative reconstruction technique. CONTRAST: 94ml of Optiray 320 was administered intravenously. COMPARISON: No relevant prior studies available. FINDINGS: Limitations: None. Lung bases: There is mild atelectasis in the dependent lung bases. Pleural space: No visualized pleural effusion or pneumothorax. Heart: No abnormality noted. Mediastinum: No abnormality noted. ABDOMEN: Liver: Normal size and contour. Hypodense typical of steatosis. No mass or ductal dilation. Gallbladder and bile ducts: Multiple stones and sludge in the gallbladder. No ductal dilatation. Pancreas: Homogeneous enhancement. No mass, inflammation or ductal dilation. Spleen: No significant abnormality noted. Adrenals: No significant abnormality noted. Kidneys and ureters: Normal enhancement. No mass, hydronephrosis or visualized stone. Stomach and bowel: Colonic diverticulosis without diverticulitis. No intestinal thickening or obstruction. PELVIS: Appendix: Well seen and appears normal. Bladder: There is a small bubble of air in the urinary bladder which is incompletely distended. No calcified stones. Reproductive: Calcified uterine fibroids present. The endometrial complex is thickened to 2.3 cm. ABDOMEN and PELVIS: Intraperitoneal space: No free air. No significant fluid collection. Bones/joints: Degenerative changes noted throughout the spine. No acute osseous abnormality seen. Soft tissues: No significant abnormality noted. Vasculature: There is extensive deep venous thrombosis in the right femoral and iliac veins extending into the IVC to the level of L4. Atherosclerotic calcification of the aorta and branches. No aneurysm. Lymph nodes: No pathologically enlarged lymph nodes. IMPRESSION: 1. There is extensive deep venous thrombosis in the right femoral and iliac veins extending into the IVC to the level of L4. 2. Small amount of air in the urinary bladder concerning for infection unless there has been recent instrumentation. Correlate with urinalysis. 3. Cholelithiasis. If additional imaging is clinically warranted, sonography is the modality of choice. 4. Hepatic steatosis. ACT 112: Negative or not required by law. Electronically signed by Jenelle Mixon 10-07-2024 6:23 PM
--- NOTE | 2024-10-07 19:46 | XRay Report ---
EXAM: XR chest 1V portable CLINICAL HISTORY: weakness portable CLW TECHNIQUE: An X-ray image of the chest is obtained in AP projection. COMPARISON: 09/19/2024 FINDINGS: Cardiac monitoring leads are seen in place. Pulmonary Parenchyma: Interstitial thickening is noted in bilateral perihilarc and lower zones likely signifying chronic changes. An atelectatic band is seen in right paracardiac region. No evidence of consolidation, collapse, or focal opacities. No evidence of pleural effusion or pleural thickening. Heart and Mediastinum: Heart size and shape are normal. No mediastinal widening or masses. Aortic calcifcations are appreciated. Bony Thorax: Bony thorax appears intact without fractures or deformities. Soft Tissues: Soft tissues overlying the chest wall are unremarkable. IMPRESSION: Stable appearance of bilateral perihilar and lower zone interstitial thickening. An atelectatic band is seen in right paracardiac region.stable NO acute collapse or consolidation is seen on either side. Electronically signed by Nina Davis 10-07-2024 7:46 PM
--- NOTE | 2024-10-07 20:03 | History & Physical Report ---
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 Primarily CT showed extensive clot in the femoral and iliac veins on the right with extension to IVC Follow-up lower extremity venous Dopplers bilaterally showed near occlusive right common femoral to calf DVT. on the left popliteal vein was occluded, and nonocclusive left proximal vein thrombus noted Vascular surgery consulted over the phone by the ED, who felt thrombectomy was not indicated, and patient was placed on IV heparin per protocol Hypercoagulable profile ordered Persistent urinary tract infection- Patient had admitted for sepsis due to UTI for 09/19-09/21/2024. Urine cultures at that time grew pansensitive Klebsiella which was initially treated with cefepime in hospital and then discharged on Augmentin for additional 3 days. Patient did receive an additional 5-day course which was completed on 10/07/2024 the day of admission. Urinalysis again looks infected, and patient will be placed on cefepime 2 g IV every 12 hours Follow urine culture and sensitivities Rheumatoid arthritis- Continue hydroxychloroquine Hold oral prednisone Give hydroxychloroquine and 50 mg IV every 8 hours for adrenal l insufficiency High risk ulcerated plaque in the aortic arch and descending aorta- Noted on CTA PE protocol, that was negative for PE Start rosuvastatin 20 mg daily, and assess with vascular surgery Elevated troponin/hypertension- Troponin initially 34.5 with follow-up 47.3 The patient will be admitted to telemetry for serial cardiac enzymes, serial EKG's, cardiac rhythm monitoring and a 2-D echocardiogram with Dopplers. Holding amlodipine due to relatively low blood pressure Hyperglycemia- No diagnosis of diabetes However, is on prednisone chronically Place on Accu-Cheks with SSI History of Present Illness Chief Complaint: The patient presents to the emergency department with her son, due to complaints regarding worsening ambulatory difficulty, generalized weakness, decreased oral intake. She had presented to her PCPs office earlier in the day, reportedly had a vomiting episode while in the office, low blood pressure, and was then sent to the ED for evaluation. Primary Care Provider: Eliel Lynn MD The patient is a 84-year-old female with past medical history including recent admission from 09/19-09/21/2024 for sepsis due to Klebsiella urinary tract infection, no initially treated with cefepime in hospital, and then discharged on 3 additional days of Augmentin. The patient had been seen for hospital follow-up in the office on 09/22/2024, and was placed on Augmentin for 5 additional days, which was completed on 10/07/2024. The patient was then seen for follow-up in the outpatient office again today, an episode of nausea and vomiting, with low blood pressure, and was then referred to the ED for assessment. Patient also had worsening of generalized fatigue, and some assoc iated shortness of breath and dyspnea on exertion. Allergies Allergy/AdvReac Type Severity Reaction Status Date / Time No Known Drug Allergies Allergy Unknown . Verified 10/07/24 14:39 Home Medications Medication Instructions Recorded Confirmed Type calcium 600 mg (as 1 cap PO PM 01/26/22 10/07/24 History carbonate)-vitamin D3 5 mcg (200 unit) capsule (Calcium 600 + D(3)) amlodipine 2.5 mg tablet 2.5 mg PO PM 09/19/24 10/07/24 History amlodipine 5 mg tablet 5 mg PO PM 09/19/24 10/07/24 History hydroxychloroquine 200 mg tablet 200 mg PO PM 09/19/24 10/07/24 History prednisone 5 mg tablet 5 mg PO PM 09/19/24 10/07/24 History cholecalciferol (vitamin D3) 125 5,000 unit PO PM #90 caps 09/29/24 10/07/24 Rx mcg (5,000 unit) capsule mirtazapine 7.5 mg tablet 7.5 mg PO DAILY #30 tabs 09/29/24 10/07/24 Rx amoxicillin 875 mg-potassium 1 tab PO BID 7 days #14 tabs 09/30/24 10/07/24 Rx clavulanate 125 mg tablet cyanocobalamin (vitamin B-12) 1,000 mcg PO HS 10/07/24 10/07/24 History 1,000 mcg tablet (Vitamin B-12) Past Med/Surg History Problem List (Updated 10/08/24 @ 04:36 by Joby Webb MD) Current chronic use of systemic steroids Rheumatoid arthritis Acute deep vein thrombosis of both lower extremities Elevated lactic acid level (Acute) 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 (Acute) Weakness (Acute) Hypokalemia Hypomagnesemia UTI (urinary tract infection) Sepsis Elevated troponin I level (Acute) Greater trochanteric pain syndrome Vitamin D deficiency disease (Acute) Secondary hyperparathyroidism (Acute) SNHL (sensorineural hearing loss) (Acute) Osteoporosis (Acute) Osteopenia (Acute) Multiple thyroid nodules (Acute) MGUS (monoclonal gammopathy of unknown significance) (Acute) Left hip pain (Acute) Hyperglycemia (Acute) Greater trochanteric bursitis (Acute) Forgetfulness (Acute) Irregular heart rate Vitamin B12 deficiency Elevated hemoglobin Hypertension Surgical History S/P tubal ligation S/P tonsillectomy Family History Father Congestive heart failure Myocardial infarction Other Breast cancer Denies family history of Ovarian cancer Prostate cancer Colorectal cancer Social History Smoking Status: Former smoker Second Hand Exposure: No; Do You Dip or Chew Tobacco: No; Hx Alcohol Use: No Hx Substance Use: No Preferred Language: Maltese Communication Ability: Effective Visual Impairment: No Limitations Hearing Ability: Normal Supervisor Anodizing Required: No Beliefs That Will Affect Care: None marital status: / Current Living Situation: Family current occupational status: retired Other Information That Helps Us Care for You: No Feels Safe at Home: Yes Safety Concerns: Feels Safe At This Time Dental Care, Regularly: Yes Physical Activity Frequency: Does not Exercise Seatbelt Use: always Assistive Devices: Cane and Glasses Review of Systems Review of Systems: The patient denies chest pain, palpitations, sore throat, fevers, chills, sweats, diarrhea , constipation, abdominal pain, pelvic pain, blood in urine or stool, memory loss, loss of consciousness, rash, abnormal bruising or bleeding, Focal weakness, numbness or tingling in arms or legs, generalized arthralgias or myalgias, back or neck pain, or night sweats. The review of systems is otherwise negative other than for that already noted above, and at least 10 systems have been reviewed. Physical Exam Physical Exam: The patient is awake, alert and oriented 3, appears mildly fatigued at rest, normocephalic and atraumatic, lying in bed and in no acute distress. HEENT--PERRL, EOMI, mucous membranes and oropharynx dry. Neck--supple. No JVD. No bruits. Thyroid normal, trachea midline, no adenopathy. Heart--normal S1 and S2. No murmurs, rubs or gallops. Lungs--clear bilaterally, no respiratory distress, no accessory muscle use. Abdomen--normal bowel sounds and soft. Nontender. Nondistended. Extremities--trace to 1+ lower extremity pitting edema on the left. 1+ lower extremity pitting edema on the right Dermatologic--normal skin turgor, normal color, no abnormal lymph nodes, no rash. Neurologic--cranial nerves II through XII grossly intact. Rheumatologic--normal range of motion. Psychiatric--normal affect. Results & Data Results & Data Vital Signs (Past 12 Hours) Vital Signs Temp Pulse Pulse Resp BP BP Pulse Ox 10/07/24 19:00 85 20 126/79 92 10/07/24 17:36 87 18 124/77 92 10/07/24 16:48 94 H 10/07/24 16:15 10/07/24 15:44 36.5 C 104 H 18 100/72 98 O2 Del Method 10/07/24 19:00 Room Air 10/07/24 17:36 Room Air 10/07/24 16:48 10/07/24 16:15 Room Air 10/07/24 15:44 Room Air Laboratory Results Laboratory Results WBC 13.90 K/ul (4.8-10.8) H 10/08/24 03:10 RBC 5.02 M/uL (4.20-5.40) 10/08/24 03:10 Hgb 14.0 g/dl (12.0-16.0) 10/08/24 03:10 Hct 43.9 % (37.0-47.0) 10/08/24 03:10 MCV 87.5 fL (80.0-100.0) 10/08/24 03:10 MCH 27.9 pg (25.0-34.0) 10/08/24 03:10 MCHC 31.9 g/dL (32.0-36.0) L 10/08/24 03:10 RDW Std Deviation 49.1 fL (36.4-46.3) H 10/08/24 03:10 RDW Coeff of Andrés 15.5 % (11.5-14.5) H 10/08/24 03:10 Plt Count 299 K/uL (130-400) 10/08/24 03:10 MPV 9.7 fL (9.4-12.4) 10/08/24 03:10 Immature Gran % (Auto) 1.9 % 10/08/24 03:10 Neut % (Auto) 89.9 % 10/08/24 03:10 Lymph % (Auto) 5.2 % 10/08/24 03:10 [place] % (Auto) 1.7 % 10/08/24 03:10 Eos % (Auto) 0.9 % 10/08/24 03:10 Baso % (Auto) 0.4 % 10/08/24 03:10 Neut # (Auto) 12.50 K/uL (1.40-6.50) H 10/08/24 03:10 Lymph # (Auto) 0.72 K/uL (1.20-3.40) L 10/08/24 03:10 [place] # (Auto) 0.23 K/uL (0.11-0.59) 10/08/24 03:10 Eos # (Auto) 0.13 K/uL (0.00-0.50) 10/08/24 03:10 Baso # (Auto) 0.05 K/uL (0.00-0.20) 10/08/24 03:10 Immature Gran # (Auto) 0.27 K/uL (0.01-0.20) H 10/08/24 03:10 PT 11.0 Seconds (9.0-12.0) 10/07/24 16:11 INR 1.0 (0.9-1.1) 10/07/24 16:11 APTT 25 Seconds (21-31) 10/07/24 19:52 PTT Ratio 0.9 10/07/24 19:52 Heparin Anti-Xa, Unfract 1.08 IU/ml (0.3-0.7) H* 10/08/24 03:10 Sodium 142 mmol/L (136-145) 10/08/24 03:10 Potassium 3.7 mmol/L (3.5-5.1) 10/08/24 03:10 Chloride 109 mmol/L (98-107) H 10/08/24 03:10 Carbon Dioxide 21 mmol/L (21-32) 10/08/24 03:10 Anion Gap 12 (3-11) H 10/08/24 03:10 BUN 16 mg/dl (6-23) 10/08/24 03:10 Creatinine 0.80 mg/dl (0.6-1.2) 10/08/24 03:10 Est Cr Clr Drug Dosing 40.2 ml/min 10/08/24 03:10 eGFR 73.06 10/08/24 03:10 BUN/Creatinine Ratio 20.0 (10-20) 10/08/24 03:10 Glucose 134 mg/dl (70-99(Fasting)) H 10/08/24 03:10 POC Glucose 125 mg/dl (70-99) H 10/07/24 23:08 Lactate 2.1 mmol/L (0.4-2.0) H* 10/07/24 19:52 Calcium 8.5 mg/dl (8.6-10.3) L 10/08/24 03:10 Phosphorus 3.3 mg/dl (2.5-4.9) 10/08/24 03:10 Magnesium 1.9 mg/dl (1.7-2.4) 10/08/24 03:10 Total Bilirubin 1.4 mg/dl (0.2-1.0) H 10/07/24 16:11 AST 16 U/L (13-39) 10/07/24 16:11 ALT 15 U/L (7-52) 10/07/24 16:11 Alkaline Phosphatase 89 U/L (34-104) 10/07/24 16:11 Troponin I High Sens 48.5 pg/ml (0-14) H 10/08/24 03:10 Total Protein 6.6 gm/dl (6.0-8.3) 10/07/24 16:11 Albumin 2.9 gm/dl (3.4-5.0) L 10/08/24 03:10 Globulin 3.0 gm/dl (2.5-4.0) 10/07/24 16:11 Albumin/Globulin Ratio 1.2 (0.9-2) 10/07/24 16:11 Lipase 17 U/L (11-82) 10/07/24 16:11 Procalcitonin 0.19 ng/ml (0-0.5) 10/07/24 16:11 TSH 3.181 uIu/ml (0.300-4.500) 10/07/24 16:11 Urine Color Dark Yellow 10/07/24 17:10 Urine Appearance Turbid (Clear) A 10/07/24 17:10 Urine pH 5.5 (4.5-7.5) 10/07/24 17:10 Ur Specific [place] 1.023 (1.000-1.030) 10/07/24 17:10 Urine Protein 1+ (Negative) H 10/07/24 17:10 Urine Glucose (UA) Negative (Negative) 10/07/24 17:10 Urine Ketones Trace (Negative) H 10/07/24 17:10 Urine Blood Negative (Negative) 10/07/24 17:10 Urine Nitrite Negative (Negative) 10/07/24 17:10 Urine Bilirubin 1+ (Negative) H 10/07/24 17:10 Urine Urobilinogen Negative (Negative) 10/07/24 17:10 Ur Leukocyte Esterase Negative (Negative) 10/07/24 17:10 Urine WBC (Auto) 0-5 /hpf (0-5) 10/07/24 17:10 Urine RBC (Auto) 11-20 /hpf (0-2) H 10/07/24 17:10 U Hyaline Cast (Auto) >20 /lpf (0-2) H 10/07/24 17:10 U Epithel Cells (Auto) 3-5 /hpf (0-2) H 10/07/24 17:10 Urine Bacteria (Auto) None Seen (None Seen) 10/07/24 17:10 Hyaline Casts Present /lpf (None Presnt) A 10/07/24 17:10 Urine Mucus Present (None Prsent) A 10/07/24 17:10 Adenovirus (PCR) Not Detected (NotDetected) 10/07/24 16:12 B. pertussis DNA (PCR) Not Detected (NotDetected) 10/07/24 16:12 B.parapertussis DNA PCR Not Detected (NotDetected) 10/07/24 16:12 C. pneumoniae DNA (PCR) Not Detected (NotDetected) 10/07/24 16:12 Coronavirus OC43 (PCR) Not Detected (NotDetected) 10/07/24 16:12 Coronavirus HKU1 (PCR) Not Detected (NotDetected) 10/07/24 16:12 Coronavirus 229E (PCR) Not Detected (NotDetected) 10/07/24 16:12 SARS-CoV-2 (PCR) Not Detected (NotDetected) 10/07/24 16:12 Coronavirus NL63 (PCR) Not Detected (NotDetected) 10/07/24 16:12 Human Metapneumovir PCR Not Detected (NotDetected) 10/07/24 16:12 Influenza Type A (PCR) Not Detected (NotDetected) 10/07/24 16:12 Influenza Type B (PCR) Not Detected (NotDetected) 10/07/24 16:12 M. pneumoniae (PCR) Not Detected (NotDetected) 10/07/24 16:12 Parainfluenza 1 (PCR) Not Detected (NotDetected) 10/07/24 16:12 Parainfluenza 2 (PCR) Not Detected (NotDetected) 10/07/24 16:12 Parainfluenza 3 (PCR) Not Detected (NotDetected) 10/07/24 16:12 Parainfluenza 4 (PCR) Not Detected (NotDetected) 10/07/24 16:12 RSV (PCR) Not Detected (NotDetected) 10/07/24 16:12 Entero/Rhino (PCR) Not Detected (NotDetected) 10/07/24 16:12 Impressions Chest X-Ray 10/07/24 15:55 EXAM: XR chest 1V portable CLINICAL HISTORY: weakness portable CLW TECHNIQUE: An X-ray image of the chest is obtained in AP projection. COMPARISON: 09/19/2024 FINDINGS: Cardiac monitoring leads are seen in place. Pulmonary Parenchyma: Interstitial thickening is noted in bilateral perihilarc and lower zones likely signifying chronic changes. An atelectatic band is seen in right paracardiac region. No evidence of consolidation, collapse, or focal opacities. No evidence of pleural effusion or pleural thickening. Heart and Mediastinum: Heart size and shape are normal. No mediastinal widening or masses. Aortic calcifcations are appreciated. Bony Thorax: Bony thorax appears intact without fractures or deformities. Soft Tissues: Soft tissues overlying the chest wall are unremarkable. IMPRESSION: Stable appearance of bilateral perihilar and lower zone interstitial thickening. An atelectatic band is seen in right paracardiac region.stable NO acute collapse or consolidation is seen on either side. Electronically signed by Nina Davis 10-07-2024 7:46 PM Abdomen/Pelvis CT 10/07/24 16:33 EXAM: CT Abdomen and Pelvis With Intravenous Contrast INDICATION: Weakness, vomiting, diarrhea and dehydration. Possible urosepsis. TECHNIQUE: Axial computed tomography images of the abdomen and pelvis with intravenous contrast. Sagittal and coronal reformatted images were created and reviewed. This CT exam was performed using one or more of the following dose reduction techniques: automated exposure control, adjustment of the mA and/or kV according to patient size, and/or use of iterative reconstruction technique. CONTRAST: 94ml of Optiray 320 was administered intravenously. COMPARISON: No relevant prior studies available. FINDINGS: Limitations: None. Lung bases: There is mild atelectasis in the dependent lung bases. Pleural space: No visualized pleural effusion or pneumothorax. Heart: No abnormality noted. Mediastinum: No abnormality noted. ABDOMEN: Liver: Normal size and contour. Hypodense typical of steatosis. No mass or ductal dilation. Gallbladder and bile ducts: Multiple stones and sludge in the gallbladder. No ductal dilatation. Pancreas: Homogeneous enhancement. No mass, inflammation or ductal dilation. Spleen: No significant abnormality noted. Adrenals: No significant abnormality noted. Kidneys and ureters: Normal enhancement. No mass, hydronephrosis or visualized stone. Stomach and bowel: Colonic diverticulosis without diverticulitis. No intestinal thickening or obstruction. PELVIS: Appendix: Well seen and appears normal. Bladder: There is a small bubble of air in the urinary bladder which is incompletely distended. No calcified stones. Reproductive: Calcified uterine fibroids present. The endometrial complex is thickened to 2.3 cm. ABDOMEN and PELVIS: Intraperitoneal space: No free air. No significant fluid collection. Bones/joints: Degenerative changes noted throughout the spine. No acute osseous abnormality seen. Soft tissues: No significant abnormality noted. Vasculature: There is extensive deep venous thrombosis in the right femoral and iliac veins extending into the IVC to the level of L4. Atherosclerotic calcification of the aorta and branches. No aneurysm. Lymph nodes: No pathologically enlarged lymph nodes. IMPRESSION: 1. There is extensive deep venous thrombosis in the right femoral and iliac veins extending into the IVC to the level of L4. 2. Small amount of air in the urinary bladder concerning for infection unless there has been recent instrumentation. Correlate with urinalysis. 3. Cholelithiasis. If additional imaging is clinically warranted, sonography is the modality of choice. 4. Hepatic steatosis. ACT 112: Negative or not required by law. Electronically signed by Jenelle Mixon 10-07-2024 6:[address] 10/07/24 16:33 EXAM: CT Head Without Intravenous Contrast INDICATION: Weakness and vomiting. TECHNIQUE: Axial computed tomography images of the head/brain without intravenous contrast. Sagittal and/or coronal reformats are provided. Sagittal and coronal reformatted images were created and reviewed. This CT exam was performed using one or more of the following dose reduction techniques: automated exposure control, adjustment of the mA and/or kV according to patient size, and/or use of iterative reconstruction technique. COMPARISON: No relevant prior studies available. FINDINGS: Limitations: None. Brain and extra-axial spaces: There is age appropriate cortical atrophy and chronic ischemic periventricular white matter hypodensity. No acute infarct, hemorrhage or mass noted. Bones/joints: No acute changes. Soft tissues: No significant abnormality noted. Vasculature: No acute abnormality noted. Sinuses: No layering fluid in the visualized portions of the paranasal sinuses. Mastoid air cells: No mastoid effusion. Orbits: No significant abnormality noted. IMPRESSION: Cerebral atrophy. No acute changes. ACT 112: Negative or not required by law. Electronically signed by Jenelle Mixon 10-07-2024 5:57 PM Chest CTA 10/07/24 19:41 Exam(s): CTA CHEST IV Amt: 117 ml optiray 320 EXAM: CT Angiography Chest With Intravenous Contrast CLINICAL HISTORY: Reason for exam: PE. TECHNIQUE: Axial computed tomographic angiography images of the chest with intravenous contrast. Automated exposure control was utilized for the study. A dose lowering technique was utilized adhering to the principles of ALARA. 117 ML Optiray 320 given IV. Excellent pulmonary arterial contrast. MIP reconstructed images were created and reviewed. Moderate breathing motion artifact. COMPARISON: None. FINDINGS: Pulmonary arteries: No pulmonary embolism. Aorta: Moderate ectasia and atherosclerosis, including ulcerative, high risk plaque arch and descending aorta. No dissection or aneurysm. Ectatic bilateral common carotid arteries. Lungs: Clear. No consolidation. Pleural space: No pleural effusion. No pneumothorax. Heart: Mild cardiomegaly. No significant pericardial effusion. No evidence of elevated right heart pressures. Bones/joints: No acute fracture. Soft tissues: 2 cm right thyroid nodule vertex posterior and inferior, into the substernal space. Lymph nodes: No enlarged lymph nodes. IMPRESSION: 1. No pulmonary embolism. 2. Atherosclerosis, including high risk, ulcerative atherosclerotic plaque. 3. Mild dependent atelectasis. Lungs are grossly clear. Electronically signed by: Lisette Gonzalez M.D. 10/07/24 22:50 PM Venous Doppler Study 10/07/24 19:41 CR Exam(s): US VENOUS BILATERAL LOWER EXTREMITIES EXAM: US Duplex Bilateral Lower Extremities Veins CLINICAL HISTORY: Reason for exam: IVC clot on CT. TECHNIQUE: Real-time duplex ultrasound scan of the bilateral lower extremity veins integrating B-mode two-dimensional vascular structure, Doppler spectral analysis, color flow Doppler imaging and compression. COMPARISON: None. FINDINGS: Veins: Near complete occlusive deep vein thrombus on the RIGHT from the common femoral vein into the calf vessels. Anterior tibial veins are patent. On the LEFT, there is occlusive thrombus in the popliteal vein, likely acute. Nonocclusive thrombus in the left proximal femoral vein. Left lower extremity veins are otherwise patent. Soft tissues: No popliteal cyst. IMPRESSION: 1. POSITIVE for ACUTE bilateral DVT, right greater than left. Communications: Call Doctor DVT acute, progressing Electronically signed by: Lisette Gonzalez M.D. 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
[2024-10-07] MEDS: OPTIRAY 320 125ml IV ONE (20:26)
[2024-10-07 20:44] LABS: Partial Thromboplastin Ratio 0.9; Partial Thromboplastin Time 25 Seconds (21-31)
[2024-10-07] MEDS: HEPARIN SODIUM/DEXTROSE 25,000 UNITS/500 ML BAG IV SCH (21:05)
[2024-10-07] MEDS: HEPARIN SOD (PORCINE) 1000 UNIT/ML IV ONE ×2 (21:06→21:07)
[2024-10-07] MEDS: Heparin IV Adult Wt-Based Standard w/ INITIAL Bolus Protocol IV STA (21:06)
[2024-10-07] MEDS: POTASSIUM CHLORIDE CRTAB 20 MEQ TABCR PO STA (21:15)
[2024-10-07] MEDS: HYDROCORTISONE SOD SUCCINATE 100 MG/2 ML VIAL IV STA (22:06)
[2024-10-07] MEDS ORDERED: GLUCAGON FOR INJ 1 MG VIAL SQ PRN (22:27)
[2024-10-07] MEDS ORDERED: GLUCOSE 10 TAB/TUBE PO PRN (22:27)
[2024-10-07] MEDS ORDERED: ACETAMINOPHEN 325 MG TAB PO PRN (22:27)
[2024-10-07] MEDS ORDERED: CARBOHYDRATES FOR HYPOGLYCEMIA PO PRN (22:27)
[2024-10-07] MEDS ORDERED: GLUCOSE 40% GEL 15 GM TUBE PO PRN (22:27)
[2024-10-07] MEDS ORDERED: DEXTROSE 50% 50 ML SYRINGE IV PRN (22:27)
--- NOTE | 2024-10-07 22:50 | CT Scan Report ---
Exam(s): CTA CHEST IV Amt: 117 ml optiray 320 EXAM: CT Angiography Chest With Intravenous Contrast CLINICAL HISTORY: Reason for exam: PE. TECHNIQUE: Axial computed tomographic angiography images of the chest with intravenous contrast. Automated exposure control was utilized for the study. A dose lowering technique was utilized adhering to the principles of ALARA. 117 ML Optiray 320 given IV. Excellent pulmonary arterial contrast. MIP reconstructed images were created and reviewed. Moderate breathing motion artifact. COMPARISON: None. FINDINGS: Pulmonary arteries: No pulmonary embolism. Aorta: Moderate ectasia and atherosclerosis, including ulcerative, high risk plaque arch and descending aorta. No dissection or aneurysm. Ectatic bilateral common carotid arteries. Lungs: Clear. No consolidation. Pleural space: No pleural effusion. No pneumothorax. Heart: Mild cardiomegaly. No significant pericardial effusion. No evidence of elevated right heart pressures. Bones/joints: No acute fracture. Soft tissues: 2 cm right thyroid nodule vertex posterior and inferior, into the substernal space. Lymph nodes: No enlarged lymph nodes. IMPRESSION: 1. No pulmonary embolism. 2. Atherosclerosis, including high risk, ulcerative atherosclerotic plaque. 3. Mild dependent atelectasis. Lungs are grossly clear. Electronically signed by: Lisette Gonzalez M.D. 10/07/24 22:50 PM
--- NOTE | 2024-10-07 22:51 | Ultrasound Report ---
Exam(s): US VENOUS BILATERAL LOWER EXTREMITIES EXAM: US Duplex Bilateral Lower Extremities Veins CLINICAL HISTORY: Reason for exam: IVC clot on CT. TECHNIQUE: Real-time duplex ultrasound scan of the bilateral lower extremity veins integrating B-mode two-dimensional vascular structure, Doppler spectral analysis, color flow Doppler imaging and compression. COMPARISON: None. FINDINGS: Veins: Near complete occlusive deep vein thrombus on the RIGHT from the common femoral vein into the calf vessels. Anterior tibial veins are patent. On the LEFT, there is occlusive thrombus in the popliteal vein, likely acute. Nonocclusive thrombus in the left proximal femoral vein. Left lower extremity veins are otherwise patent. Soft tissues: No popliteal cyst. IMPRESSION: 1. POSITIVE for ACUTE bilateral DVT, right greater than left. Communications: Call Doctor DVT acute, progressing Electronically signed by: Lisette Gonzalez M.D. 10/07/24 22:50 PM
[2024-10-07] MEDS: INSULIN ASPART PER UNIT CHARGE SC SCH (23:10)
[2024-10-07] MEDS: CYANOCOBALAMIN (B-12) 500 MCG TABLET PO SCH (23:15)
[2024-10-07] MEDS: HYDROXYCHLOROQUINE SULFATE 200 MG TAB PO SCH (23:15)
[2024-10-07] MEDS: CHOLECALCIFEROL 125 MCG (5,000 UNITS) TAB PO SCH (23:15)
[2024-10-07] MEDS: CALCIUM 600MG + VIT D 400 IU TAB PO SCH (23:15)
[2024-10-08 03:25] LABS: Basophils # (auto) 0.05 K/uL (0.00-0.20); Basophils % (auto) 0.4 %; Eosinophils # (auto) 0.13 K/uL (0.00-0.50); Eosinophils % (auto) 0.9 %; Hematocrit (blood only) 43.9 % (37.0-47.0); Immature Granulocytes # (auto) 0.27 K/uL (0.01-0.20); Immature Granulocytes % (auto) 1.9 %; Lymphocytes # (auto) 0.72 K/uL (1.20-3.40); Lymphocytes % (auto) 5.2 %; Mean Corpuscular Hemoglobin 27.9 pg (25.0-34.0); Mean Corpuscular Hgb Conc 31.9 g/dL (32.0-36.0); Mean Corpuscular Volume 87.5 fL (80.0-100.0); Mean Platelet Volume 9.7 fL (9.4-12.4); Monocytes # (auto) 0.23 K/uL (0.11-0.59); Monocytes % (auto) 1.7 %; Neutrophils % (auto) 89.9 %; Platelet Count 299 K/uL (130-400); RDW Coefficient of Variation 15.5 % (11.5-14.5); RDW Standard Deviation 49.1 fL (36.4-46.3); Red Blood Count 5.02 M/uL (4.20-5.40)
[2024-10-08 03:41] LABS: Albumin Level 2.9 gm/dl (3.4-5.0); Calcium 8.5 mg/dl (8.6-10.3); Creatinine Clr Calc Pharmacy 40.2 ml/min; Magnesium 1.9 mg/dl (1.7-2.4); Phosphorus 3.3 mg/dl (2.5-4.9); Potassium 3.7 mmol/L (3.5-5.1)
[2024-10-08 03:51] LABS: Troponin I High Sensitivity 48.5 pg/ml (0-14)
[2024-10-08 04:08] LABS: ANTI-Xa, UFH(UnfractionatedHep 1.08 IU/ml (0.3-0.7)
[2024-10-08 05:13] LABS: Chol HDL Ratio 1.8 (0-5)
[2024-10-08 07:23] LABS: Estimated Average Glucose 128 mg/dl; Hemoglobin A1C 6.1 % (4.5-5.6)
--- NOTE | 2024-10-08 08:56 | Electrocardiogram Report ---
Test Reason : Blood Pressure : */* mmHG Vent. Rate : 103 BPM Atrial Rate : 103 BPM P-R Int : 160 ms QRS Dur : 80 ms QT Int : 346 ms P-R-T Axes : 38 119 -10 degrees QTcB Int : 453 ms Sinus tachycardia with occasional Premature ventricular complexes Left posterior fascicular block T-wave inversion in Inferior leads , consider ischemia Abnormal ECG When compared with ECG of 19-Sep-2024 14:23, Premature ventricular complexes are now Present Left posterior fascicular block is now Present T wave inversion now evident in Inferior leads Confirmed by Price Sarah ([id number]) on 10/08/2024 8:56:26 AM Referred By: REFERRED SELF Confirmed By: Price Sarah
[2024-10-08] MEDS: MIRTAZAPINE TAB 15 MG TAB PO SCH (09:59)
[2024-10-08] MEDS: ROSUVASTATIN CALCIUM 20 MG TAB PO SCH (09:59)
[2024-10-08] MEDS: HYDROCORTISONE SOD 50 MG in SYRINGE 0 ML IV SCH (10:05)
[2024-10-08] MEDS: CEFEPIME 2000MG 2,000 MG/20 ML SYR IV SCH (10:05)
[2024-10-08] MEDS: cefTRIAXone SODIUM 2,000 MG/50 ML BAG IV STA (11:13)
--- NOTE | 2024-10-08 11:40 | Hospitalist Progress Note ---
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: (2) Acute deep vein thrombosis of both lower extremities: (3) UTI (urinary tract infection): (4) MGUS (monoclonal gammopathy of unknown significance): (5) Current chronic use of systemic steroids: (6) Rheumatoid arthritis: Plan 84-year-old female with past medical history of rheumatoid arthritis on prednisone and Plaquenil, recent admission at [facility] from 09/19/2024 to 09/21/2024 for sepsis due to Klebsiella urinary tract infection treated with cefepime and subsequently with oral Augmentin until 10/07/2024 presents from outpatient PCPs office for episode of nausea and vomiting, low blood pressure, generalized fatigue, weakness and difficulty ambulating. Patient had a CT abdomen and pelvis performed for episode of nausea and vomiting and was found to have bilateral extensive lower extremity DVTs extending to the IVC #Bilateral lower extremity DVTs with extensive DVT up to IVC Noted on CT abdomen pelvis and bilateral lower extremity Dopplers CTA shows no evidence of PE Vascular surgery consulted: Awaiting vascular surgery consult and recommendations regarding thrombectomy Continue IV heparin Hypercoagulable profile sent on admission: Results pending If no plans for thrombectomy/surgery by vascular surgery, will switch from IV heparin to oral apixaban: 10 mg p.o. twice daily x 7 days and then switch to 5 mg p.o. twice daily #Suspected urinary tract infection Patient recently admitted for sepsis due to Klebsiella UTI from 09/19/2024 to 09/21/2024 Switch IV cefepime to IV ceftriaxone Blood cultures sent from ED: Results pending No urine culture was sent: Send urine culture Follow-up cultures #Rheumatoid arthritis #Suspected adrenal insufficiency in setting of chronic prednisone use Checking cortisol levels and patient was on chronic steroids is of no clinical significance Hold prednisone, continue IV hydrocortisone: Reduce dose to hydrocortisone IV 25 mg 3 times daily Continue Plaquenil Outpatient follow-up with rheumatology and endocrinology #Essential hypertension #Elevated troponin: Likely demand ischemia in setting of bilateral lower extremity DVTs extending to the IVC Patient has no complaints of chest pain, EKG shows no ischemic changes Hold amlodipine since blood pressure is on the low normal side Monitor vital signs #Atherosclerosis, including high risk ulcerated atherosclerotic plaque Triglycerides of 49 Cholesterol 76 LDL is 24 HDL is 42 Await recommendations from vascular surgery regarding treatment for atherosclerotic plaque #Hepatic steatosis Incidental finding on CT abdomen pelvis Monitor LFTs #Prediabetes A1c 6.1 Patient on chronic steroid use Diet control Outpatient follow-up with PCP #Weakness/debility PT/OT consults CODE STATUS: Discussed with patient, full code DVT prophylaxis: Patient on heparin infusion Discharge planning based on vascular surgery recommendations, PT/OT and clinical improvement, results of blood and urine culture Care plan discussed with patient, nursing staff, Son Fer Farias ([phone]) updated on the phone Admission and Anticipated Discharge Date Admission Date: October 07, 2024 Subjective Patient seen and examined H&P reviewed Labs reviewed Radiology reviewed Denies any chest pain, shortness of breath, nausea, vomiting, diarrhea, abdominal pain Feels weak and tired Complaining of some soreness in her right lower extremity Social history: Lives at home. Son is at home with her everyday: lives close by. Denies tobacco use or alcohol use. Patient states she occasionally uses a cane to ambulate Physical Exam Physical Exam: General: No acute distress Psych: Awake and alert, oriented to place and person: She is able to tell me his September 2024 unable to recall name of [place] president HEENT: Anicteric sclera, moist oral mucosa CVS: Regular rate and rhythm Lungs: Bilateral air entry, no wheezing noted Abdomen: Soft, nontender, no rebound, no guarding Ext: Bilateral lower extremity pitting edema noted, right greater than left Neuro: No focal motor deficits noted, able to move all 4 extremities Results & Data Results & Data Vital Signs (Past 12 Hours) Vital Signs Temp Pulse Resp BP Pulse Ox O2 Del Method 10/08/24 11:20 36.9 C 82 18 109/70 91 Room Air 10/08/24 07:12 36.5 C 84 18 106/66 92 Room Air 10/08/24 03:01 36.3 C L 71 16 115/72 95 Room Air Laboratory Results Laboratory Results - last 24 hr 10/07/24 10/07/24 10/07/24 16:11 16:12 17:10 WBC 18.46 H RBC 6.00 H Hgb 16.3 H Hct 51.8 H MCV 86.3 MCH 27.2 MCHC 31.5 L RDW Std Deviation 48.1 H RDW Coeff of Andrés 15.5 H Plt Count 372 MPV 9.9 Immature Gran % (Auto) 2.1 Neut % (Auto) 84.1 Lymph % (Auto) 5.8 [place] % (Auto) 4.8 Eos % (Auto) 2.8 Baso % (Auto) 0.4 Neut # (Auto) 15.53 H Lymph # (Auto) 1.07 L [place] # (Auto) 0.89 H Eos # (Auto) 0.51 H Baso # (Auto) 0.07 Immature Gran # (Auto) 0.39 H PT 11.0 INR 1.0 APTT PTT Ratio LA PTT Screen Protein C Activity Protein S Activity Antithrombin III Activ Heparin Anti-Xa, Unfract Factor V Leiden Mutat Factor V Leiden Interp Sodium 143 Potassium 3.3 L Chloride 105 Carbon Dioxide 22 Anion Gap 16 H BUN 17 Creatinine 0.97 Est Cr Clr Drug Dosing 33.2 eGFR 57.98 BUN/Creatinine Ratio 17.5 Glucose 185 H POC Glucose Estimat Average Glucose Hemoglobin A1c Lactate 3.3 H* Calcium 9.4 Phosphorus Magnesium 1.9 Total Bilirubin 1.4 H AST 16 ALT 15 Alkaline Phosphatase 89 Troponin I High Sens 34.5 H Total Protein 6.6 Albumin 3.6 Globulin 3.0 Albumin/Globulin Ratio 1.2 Triglycerides Cholesterol LDL Cholesterol, Calc VLDL Cholesterol, Calc HDL Cholesterol Cholesterol/HDL Ratio Lipase 17 Homocysteine Procalcitonin 0.19 TSH 3.181 Urine Color Dark Yellow Urine Appearance Turbid A Urine pH 5.5 Ur Specific [place] 1.023 Urine Protein 1+ H Urine Glucose (UA) Negative Urine Ketones Trace H Urine Blood Negative Urine Nitrite Negative Urine Bilirubin 1+ H Urine Urobilinogen Negative Ur Leukocyte Esterase Negative Urine WBC (Auto) 0-5 Urine RBC (Auto) 11-20 H U Hyaline Cast (Auto) >20 H U Epithel Cells (Auto) 3-5 H Urine Bacteria (Auto) None Seen Hyaline Casts Present A Urine Mucus Present A Beta-2-GPI IgG Ab Beta-2-GPI IgM Ab Anti-Cardiolipin IgG Ab Anti-Cardiolipin IgM Ab Adenovirus (PCR) Not Detected B. pertussis DNA (PCR) Not Detected B.parapertussis DNA PCR Not Detected C. pneumoniae DNA (PCR) Not Detected Coronavirus OC43 (PCR) Not Detected Coronavirus HKU1 (PCR) Not Detected Coronavirus 229E (PCR) Not Detected SARS-CoV-2 (PCR) Not Detected Coronavirus NL63 (PCR) Not Detected Human Metapneumovir PCR Not Detected Influenza Type A (PCR) Not Detected Influenza Type B (PCR) Not Detected M. pneumoniae (PCR) Not Detected Parainfluenza 1 (PCR) Not Detected Parainfluenza 2 (PCR) Not Detected Parainfluenza 3 (PCR) Not Detected Parainfluenza 4 (PCR) Not Detected RSV (PCR) Not Detected Entero/Rhino (PCR) Not Detected Prothrombin Gene Mutate Prothromb Gene Comment 10/07/24 10/07/24 10/08/24 19:52 23:08 03:10 WBC 13.90 H RBC 5.02 Hgb 14.0 Hct 43.9 MCV 87.5 MCH 27.9 MCHC 31.9 L RDW Std Deviation 49.1 H RDW Coeff of Andrés 15.5 H Plt Count 299 MPV 9.7 Immature Gran % (Auto) 1.9 Neut % (Auto) 89.9 Lymph % (Auto) 5.2 [place] % (Auto) 1.7 Eos % (Auto) 0.9 Baso % (Auto) 0.4 Neut # (Auto) 12.50 H Lymph # (Auto) 0.72 L [place] # (Auto) 0.23 Eos # (Auto) 0.13 Baso # (Auto) 0.05 Immature Gran # (Auto) 0.27 H PT INR APTT 25 PTT Ratio 0.9 LA PTT Screen Pending Protein C Activity Pending Protein S Activity Pending Antithrombin III Activ Pending Heparin Anti-Xa, Unfract 1.08 H* Factor V Leiden Mutat Pending Factor V Leiden Interp Pending Sodium 142 Potassium 3.7 Chloride 109 H Carbon Dioxide 21 Anion Gap 12 H BUN 16 Creatinine 0.80 Est Cr Clr Drug Dosing 40.2 eGFR 73.06 BUN/Creatinine Ratio 20.0 Glucose 134 H POC Glucose 125 H Estimat Average Glucose 128 Hemoglobin A1c 6.1 H Lactate 2.1 H* Calcium 8.5 L Phosphorus 3.3 Magnesium 1.9 Total Bilirubin AST ALT Alkaline Phosphatase Troponin I High Sens 47.3 H D 48.5 H Total Protein Albumin 2.9 L Globulin Albumin/Globulin Ratio Triglycerides 49 Cholesterol 76 LDL Cholesterol, Calc 24 VLDL Cholesterol, Calc 10 HDL Cholesterol 42 Cholesterol/HDL Ratio 1.8 Lipase Homocysteine Pending Procalcitonin TSH Urine Color Urine Appearance Urine pH Ur Specific [place] Urine Protein Urine Glucose (UA) Urine Ketones Urine Blood Urine Nitrite Urine Bilirubin Urine Urobilinogen Ur Leukocyte Esterase Urine WBC (Auto) Urine RBC (Auto) U Hyaline Cast (Auto) U Epithel Cells (Auto) Urine Bacteria (Auto) Hyaline Casts Urine Mucus Beta-2-GPI IgG Ab Pending Beta-2-GPI IgM Ab Pending Anti-Cardiolipin IgG Ab Pending Anti-Cardiolipin IgM Ab Pending Adenovirus (PCR) B. pertussis DNA (PCR) B.parapertussis DNA PCR C. pneumoniae DNA (PCR) Coronavirus OC43 (PCR) Coronavirus HKU1 (PCR) Coronavirus 229E (PCR) SARS-CoV-2 (PCR) Coronavirus NL63 (PCR) Human Metapneumovir PCR Influenza Type A (PCR) Influenza Type B (PCR) M. pneumoniae (PCR) Parainfluenza 1 (PCR) Parainfluenza 2 (PCR) Parainfluenza 3 (PCR) Parainfluenza 4 (PCR) RSV (PCR) Entero/Rhino (PCR) Prothrombin Gene Mutate Pending Prothromb Gene Comment Pending 10/08/24 10/08/24 07:11 11:32 WBC RBC Hgb Hct MCV MCH MCHC RDW Std Deviation RDW Coeff of Andrés Plt Count MPV Immature Gran % (Auto) Neut % (Auto) Lymph % (Auto) [place] % (Auto) Eos % (Auto) Baso % (Auto) Neut # (Auto) Lymph # (Auto) [place] # (Auto) Eos # (Auto) Baso # (Auto) Immature Gran # (Auto) PT INR APTT PTT Ratio LA PTT Screen Protein C Activity Protein S Activity Antithrombin III Activ Heparin Anti-Xa, Unfract Factor V Leiden Mutat Factor V Leiden Interp Sodium Potassium Chloride Carbon Dioxide Anion Gap BUN Creatinine Est Cr Clr Drug Dosing eGFR BUN/Creatinine Ratio Glucose POC Glucose 92 89 Estimat Average Glucose Hemoglobin A1c Lactate Calcium Phosphorus Magnesium Total Bilirubin AST ALT Alkaline Phosphatase Troponin I High Sens Total Protein Albumin Globulin Albumin/Globulin Ratio Triglycerides Cholesterol LDL Cholesterol, Calc VLDL Cholesterol, Calc HDL Cholesterol Cholesterol/HDL Ratio Lipase Homocysteine Procalcitonin TSH Urine Color Urine Appearance Urine pH Ur Specific [place] Urine Protein Urine Glucose (UA) Urine Ketones Urine Blood Urine Nitrite Urine Bilirubin Urine Urobilinogen Ur Leukocyte Esterase Urine WBC (Auto) Urine RBC (Auto) U Hyaline Cast (Auto) U Epithel Cells (Auto) Urine Bacteria (Auto) Hyaline Casts Urine Mucus Beta-2-GPI IgG Ab Beta-2-GPI IgM Ab Anti-Cardiolipin IgG Ab Anti-Cardiolipin IgM Ab Adenovirus (PCR) B. pertussis DNA (PCR) B.parapertussis DNA PCR C. pneumoniae DNA (PCR) Coronavirus OC43 (PCR) Coronavirus HKU1 (PCR) Coronavirus 229E (PCR) SARS-CoV-2 (PCR) Coronavirus NL63 (PCR) Human Metapneumovir PCR Influenza Type A (PCR) Influenza Type B (PCR) M. pneumoniae (PCR) Parainfluenza 1 (PCR) Parainfluenza 2 (PCR) Parainfluenza 3 (PCR) Parainfluenza 4 (PCR) RSV (PCR) Entero/Rhino (PCR) Prothrombin Gene Mutate Prothromb Gene Comment Diagnostic Findings Chest X-Ray 10/07/24 15:55 EXAM: XR chest 1V portable CLINICAL HISTORY: weakness portable CLW TECHNIQUE: An X-ray image of the chest is obtained in AP projection. COMPARISON: 09/19/2024 FINDINGS: Cardiac monitoring leads are seen in place. Pulmonary Parenchyma: Interstitial thickening is noted in bilateral perihilarc and lower zones likely signifying chronic changes. An atelectatic band is seen in right paracardiac region. No evidence of consolidation, collapse, or focal opacities. No evidence of pleural effusion or pleural thickening. Heart and Mediastinum: Heart size and shape are normal. No mediastinal widening or masses. Aortic calcifcations are appreciated. Bony Thorax: Bony thorax appears intact without fractures or deformities. Soft Tissues: Soft tissues overlying the chest wall are unremarkable. IMPRESSION: Stable appearance of bilateral perihilar and lower zone interstitial thickening. An atelectatic band is seen in right paracardiac region.stable NO acute collapse or consolidation is seen on either side. Electronically signed by Nina Davis 10-07-2024 7:46 PM Abdomen/Pelvis CT 10/07/24 16:33 EXAM: CT Abdomen and Pelvis With Intravenous Contrast INDICATION: Weakness, vomiting, diarrhea and dehydration. Possible urosepsis. TECHNIQUE: Axial computed tomography images of the abdomen and pelvis with intravenous contrast. Sagittal and coronal reformatted images were created and reviewed. This CT exam was performed using one or more of the following dose reduction techniques: automated exposure control, adjustment of the mA and/or kV according to patient size, and/or use of iterative reconstruction technique. CONTRAST: 94ml of Optiray 320 was administered intravenously. COMPARISON: No relevant prior studies available. FINDINGS: Limitations: None. Lung bases: There is mild atelectasis in the dependent lung bases. Pleural space: No visualized pleural effusion or pneumothorax. Heart: No abnormality noted. Mediastinum: No abnormality noted. ABDOMEN: Liver: Normal size and contour. Hypodense typical of steatosis. No mass or ductal dilation. Gallbladder and bile ducts: Multiple stones and sludge in the gallbladder. No ductal dilatation. Pancreas: Homogeneous enhancement. No mass, inflammation or ductal dilation. Spleen: No significant abnormality noted. Adrenals: No significant abnormality noted. Kidneys and ureters: Normal enhancement. No mass, hydronephrosis or visualized stone. Stomach and bowel: Colonic diverticulosis without diverticulitis. No intestinal thickening or obstruction. PELVIS: Appendix: Well seen and appears normal. Bladder: There is a small bubble of air in the urinary bladder which is incompletely distended. No calcified stones. Reproductive: Calcified uterine fibroids present. The endometrial complex is thickened to 2.3 cm. ABDOMEN and PELVIS: Intraperitoneal space: No free air. No significant fluid collection. Bones/joints: Degenerative changes noted throughout the spine. No acute osseous abnormality seen. Soft tissues: No significant abnormality noted. Vasculature: There is extensive deep venous thrombosis in the right femoral and iliac veins extending into the IVC to the level of L4. Atherosclerotic calcification of the aorta and branches. No aneurysm. Lymph nodes: No pathologically enlarged lymph nodes. IMPRESSION: 1. There is extensive deep venous thrombosis in the right femoral and iliac veins extending into the IVC to the level of L4. 2. Small amount of air in the urinary bladder concerning for infection unless there has been recent instrumentation. Correlate with urinalysis. 3. Cholelithiasis. If additional imaging is clinically warranted, sonography is the modality of choice. 4. Hepatic steatosis. ACT 112: Negative or not required by law. Electronically signed by Jenelle Mixon 10-07-2024 6:[address] 10/07/24 16:33 EXAM: CT Head Without Intravenous Contrast INDICATION: Weakness and vomiting. TECHNIQUE: Axial computed tomography images of the head/brain without intravenous contrast. Sagittal and/or coronal reformats are provided. Sagittal and coronal reformatted images were created and reviewed. This CT exam was performed using one or more of the following dose reduction techniques: automated exposure control, adjustment of the mA and/or kV according to patient size, and/or use of iterative reconstruction technique. COMPARISON: No relevant prior studies available. FINDINGS: Limitations: None. Brain and extra-axial spaces: There is age appropriate cortical atrophy and chronic ischemic periventricular white matter hypodensity. No acute infarct, hemorrhage or mass noted. Bones/joints: No acute changes. Soft tissues: No significant abnormality noted. Vasculature: No acute abnormality noted. Sinuses: No layering fluid in the visualized portions of the paranasal sinuses. Mastoid air cells: No mastoid effusion. Orbits: No significant abnormality noted. IMPRESSION: Cerebral atrophy. No acute changes. ACT 112: Negative or not required by law. Electronically signed by Jenelle Mixon 10-07-2024 5:57 PM Chest CTA 10/07/24 19:41 Exam(s): CTA CHEST IV Amt: 117 ml optiray 320 EXAM: CT Angiography Chest With Intravenous Contrast CLINICAL HISTORY: Reason for exam: PE. TECHNIQUE: Axial computed tomographic angiography images of the chest with intravenous contrast. Automated exposure control was utilized for the study. A dose lowering technique was utilized adhering to the principles of ALARA. 117 ML Optiray 320 given IV. Excellent pulmonary arterial contrast. MIP reconstructed images were created and reviewed. Moderate breathing motion artifact. COMPARISON: None. FINDINGS: Pulmonary arteries: No pulmonary embolism. Aorta: Moderate ectasia and atherosclerosis, including ulcerative, high risk plaque arch and descending aorta. No dissection or aneurysm. Ectatic bilateral common carotid arteries. Lungs: Clear. No consolidation. Pleural space: No pleural effusion. No pneumothorax. Heart: Mild cardiomegaly. No significant pericardial effusion. No evidence of elevated right heart pressures. Bones/joints: No acute fracture. Soft tissues: 2 cm right thyroid nodule vertex posterior and inferior, into the substernal space. Lymph nodes: No enlarged lymph nodes. IMPRESSION: 1. No pulmonary embolism. 2. Atherosclerosis, including high risk, ulcerative atherosclerotic plaque. 3. Mild dependent atelectasis. Lungs are grossly clear. Electronically signed by: Lisette Gonzalez M.D. 10/07/24 22:50 PM Venous Doppler Study 10/07/24 19:41 CR Exam(s): US VENOUS BILATERAL LOWER EXTREMITIES EXAM: US Duplex Bilateral Lower Extremities Veins CLINICAL HISTORY: Reason for exam: IVC clot on CT. TECHNIQUE: Real-time duplex ultrasound scan of the bilateral lower extremity veins integrating B-mode two-dimensional vascular structure, Doppler spectral analysis, color flow Doppler imaging and compression. COMPARISON: None. FINDINGS: Veins: Near complete occlusive deep vein thrombus on the RIGHT from the common femoral vein into the calf vessels. Anterior tibial veins are patent. On the LEFT, there is occlusive thrombus in the popliteal vein, likely acute. Nonocclusive thrombus in the left proximal femoral vein. Left lower extremity veins are otherwise patent. Soft tissues: No popliteal cyst. IMPRESSION: 1. POSITIVE for ACUTE bilateral DVT, right greater than left. Communications: Call Doctor DVT acute, progressing Electronically signed by: Lisette Gonzalez M.D. 10/07/24 22:50 PM PG Care Time/CCT Total # of Minutes Spent Total Time Spent with Patient: Total time spent is greater than 50% in coordination of care (as documented) at patient's floor/unit and/or counseling patient: Coding Level of Care Code 89420 SUB INP/OBS CARE 3/50MIN Diagnoses 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
[2024-10-08 12:57] LABS: Appearance Urine Clear (Clear); Bacteria Urine Automated None Seen (None Seen); Bilirubin Urine Negative (Negative); Blood Urine Negative (Negative); Color Urine Yellow; Epithelial Cell Urine Auto 0-2 /hpf (0-2); Glucose Urine UA Negative (Negative); Ketones Urine 1+ (Negative); Leukocyte Esterase Urine Negative (Negative); Nitrite Urine Negative (Negative); Protein Urine 1+ (Negative); Specific Gravity Urine > 1.045 (1.000-1.030); Urobilinogen Urine Negative (Negative); WBC Urine Automated 0-5 /hpf (0-5); pH Urine 5.5 (4.5-7.5)
[2024-10-08 13:51] LABS: ANTI-Xa, UFH(UnfractionatedHep 0.39 IU/ml (0.3-0.7)
--- NOTE | 2024-10-08 14:17 | Consultation ---
Date of Consultation October 08, 2024 Assessment & Plan (1) Acute deep vein thrombosis of both lower extremities: There is no indication to undergo thrombolysis or filter placement at this time. Will treat her with anticoagulation. Would elevate the feet is much as possible. She will probably most likely need to be fitted for compression stockings in the future. (2) Aortic arch atherosclerosis: Her CT angio showed mild atherosclerotic changes of aorta with small amount of mural thrombus. No treatment is needed for this at this point in time. Thank you very much for letting us participate in the care of this patient. History of Present Illness Reason for Consultation: Bilateral acute deep venous thrombosis with right iliofemoral venous thrombosis, atherosclerotic plaque in the arch and descending aorta Attending Physician: Joby Webb MD History of Present Illness This is an 84-year-old female who presented to the ER and found to have bilateral lower extremity acute deep venous thrombosis as well as right iliofemoral venous thrombosis. Further workup CT angio of the chest was done for pulmonary emboli. This showed some mild plaque in the aorta with small amount of mural thrombus and read as high risk ulcerative plaque. She does not ambulate well due to weakness but does not complain of any foot pain or lower extremity pain. She denies any ulcerations of the lower extremities. She was found to have a UTI at this admission. Allergies Allergy/AdvReac Type Severity Reaction Status Date / Time No Known Drug Allergies Allergy Unknown . Verified 10/07/24 14:39 Home Medications Medication Instructions Recorded Confirmed Type calcium 600 mg (as 1 cap PO PM 01/26/22 10/07/24 History carbonate)-vitamin D3 5 mcg (200 unit) capsule (Calcium 600 + D(3)) amlodipine 2.5 mg tablet 2.5 mg PO PM 09/19/24 10/07/24 History amlodipine 5 mg tablet 5 mg PO PM 09/19/24 10/07/24 History hydroxychloroquine 200 mg tablet 200 mg PO PM 09/19/24 10/07/24 History prednisone 5 mg tablet 5 mg PO PM 09/19/24 10/07/24 History cholecalciferol (vitamin D3) 125 5,000 unit PO PM #90 caps 09/29/24 10/07/24 Rx mcg (5,000 unit) capsule mirtazapine 7.5 mg tablet 7.5 mg PO DAILY #30 tabs 09/29/24 10/07/24 Rx amoxicillin 875 mg-potassium 1 tab PO BID 7 days #14 tabs 09/30/24 10/07/24 Rx clavulanate 125 mg tablet cyanocobalamin (vitamin B-12) 1,000 mcg PO HS 10/07/24 10/07/24 History 1,000 mcg tablet (Vitamin B-12) Patient History Surgical History S/P tubal ligation S/P tonsillectomy Family History Father Congestive heart failure Myocardial infarction Other Breast cancer Denies family history of Ovarian cancer Prostate cancer Colorectal cancer Social History Smoking Status: Former smoker Second Hand Exposure: No; Do You Dip or Chew Tobacco: No; Hx Alcohol Use: No Hx Substance Use: No Preferred Language: Citizen Of [place] Communication Ability: Effective Visual Impairment: No Limitations Hearing Ability: Normal Patient Registrar Required: No Beliefs That Will Affect Care: None marital status: / Current Living Situation: Family current occupational status: retired Other Information That Helps Us Care for You: No Feels Safe at Home: Yes Safety Concerns: Feels Safe At This Time Dental Care, Regularly: Yes Physical Activity Frequency: Does not Exercise Seatbelt Use: always Assistive Devices: Cane and Wheelchair Review of Systems Review of Systems: All systems reviewed & are unremarkable except as noted in HPI & below Physical Exam Constitutional: WD/WN, vitals as above Respiratory: normal respiratory effort; no respiratory distress Cardiovascular: Rate/Rhythm: regular rate and regular rhythm Vessels: normal peripheral pulses Extremities: normal capillary refill Neurologic: CN's II-XI intact bilaterally and moves all extremities Psychiatric: Orientation: alert and oriented x 3 Results & Data Vital Signs (Past 12 Hours) Vital Signs Temp Pulse Resp BP Pulse Ox O2 Del Method 10/08/24 11:43 Room Air 10/08/24 11:20 36.9 C 82 18 109/70 91 Room Air 10/08/24 07:12 36.5 C 84 18 106/66 92 Room Air 10/08/24 03:01 36.3 C L 71 16 115/72 95 Room Air
--- NOTE | 2024-10-08 15:13 | XCELERA ---
[id number] [id number]
[2024-10-08] MEDS: HYDROCORTISONE SOD 25 MG in SYRINGE 0 ML IV SCH (15:15)
[2024-10-08] MEDS: ONDANSETRON INJ 2 MG/ML 2 ML VIAL IV PRN (16:58)
[2024-10-08] MEDS: cefTRIAXone SODIUM 2,000 MG/50 ML BAG IV SCH (18:33)
[2024-10-08] MEDS: [UNRECOGNIZED DRUG - REMARK] ONE (20:03)
[2024-10-08] MEDS: APIXABAN 5 MG TABLET PO SCH (20:51)
[2024-10-09 07:05] LABS: Basophils # (auto) 0.04 K/uL (0.00-0.20); Basophils % (auto) 0.3 %; Eosinophils % (auto) 1.3 %; Hematocrit (blood only) 43.2 % (37.0-47.0); Hemoglobin 13.7 g/dl (12.0-16.0); Immature Granulocytes # (auto) 0.31 K/uL (0.01-0.20); Mean Corpuscular Hemoglobin 27.5 pg (25.0-34.0); Mean Corpuscular Hgb Conc 31.7 g/dL (32.0-36.0); Mean Corpuscular Volume 86.7 fL (80.0-100.0); Mean Platelet Volume 10.7 fL (9.4-12.4); Monocytes # (auto) 0.81 K/uL (0.11-0.59); Monocytes % (auto) 5.3 %; Neutrophils # (auto) 12.06 K/uL (1.40-6.50); Neutrophils % (auto) 78.1 %; Platelet Count 321 K/uL (130-400); RDW Coefficient of Variation 15.3 % (11.5-14.5); RDW Standard Deviation 48.4 fL (36.4-46.3); Red Blood Count 4.98 M/uL (4.20-5.40); White Blood Count 15.42 K/ul (4.8-10.8)
[2024-10-09 07:34] LABS: Albumin Globulin Ratio 1.3 (0.9-2); Albumin Level 3.1 gm/dl (3.4-5.0); BUN Creatinine Ratio 28.4 (10-20); Bilirubin,Total 0.7 mg/dl (0.2-1.0); Creatinine Clr Calc Pharmacy 39.7 ml/min; Globulin 2.3 gm/dl (2.5-4.0); Magnesium 2.1 mg/dl (1.7-2.4); Potassium 3.5 mmol/L (3.5-5.1); Total Protein 5.4 gm/dl (6.0-8.3)
[2024-10-09] MEDS ORDERED: cefTRIAXone SODIUM 2,000 MG/50 ML BAG IV SCH (09:00)
--- NOTE | 2024-10-09 11:09 | Hospitalist Progress Note ---
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: (2) Acute deep vein thrombosis of both lower extremities: (3) UTI (urinary tract infection): (4) MGUS (monoclonal gammopathy of unknown significance): (5) Current chronic use of systemic steroids: (6) Rheumatoid arthritis: Plan 84-year-old female with past medical history of rheumatoid arthritis on prednisone and Plaquenil, recent admission at [facility] from 09/19/2024 to 09/21/2024 for sepsis due to Klebsiella urinary tract infection treated with cefepime and subsequently with oral Augmentin until 10/07/2024 presents from outpatient PCPs office for episode of nausea and vomiting, low blood pressure, generalized fatigue, weakness and difficulty ambulating. Patient had a CT abdomen and pelvis performed for episode of nausea and vomiting and was found to have bilateral extensive lower extremity DVTs extending to the IVC #Bilateral lower extremity DVTs with extensive DVT up to IVC Noted on CT abdomen pelvis and bilateral lower extremity Dopplers CTA shows no evidence of PE Vascular surgeon Dr. Lester saw the patient: He reviewed scans and at this point no need for IVC filter or thrombectomy per vascular surgery Patient was initially anticoagulated with IV heparin which has been transitioned to oral apixaban: 10 mg p.o. twice daily x 7 days and then switch to 5 mg p.o. twice daily Hypercoagulable profile sent on admission: Results pending #Suspected urinary tract infection Patient recently admitted for sepsis due to Klebsiella UTI from 09/19/2024 to 09/21/2024 Continue IV ceftriaxone (day 2) Blood cultures sent from ED showing no growth at 24 hours Urine culture sent after starting antibiotics: Results pending Urine analysis shows some yeast: Will give Diflucan 150 mg p.o. x 1 dose I suspect elevated white count is related to steroid use rather than infection at this point Follow-up cultures #Rheumatoid arthritis #Suspected adrenal insufficiency in setting of chronic prednisone use Checking cortisol levels and patient was on chronic steroids is of no clinical significance Stop IV hydrocortisone and switch to oral prednisone: Increased dose to prednisone 20 mg daily and taper down to home dose of 5 mg p.o. daily Continue Plaquenil Outpatient follow-up with rheumatology and endocrinology #Essential hypertension #Elevated troponin: Likely demand ischemia in setting of bilateral lower extremity DVTs extending to the IVC Patient has no complaints of chest pain, EKG shows no ischemic changes Echo shows mild concentric LV H, left ventricular ejection fraction is greater than 70%, left ventricular is hyperdynamic, no thrombus, the wall motion is normal. Grade 1 diastolic dysfunction noted the right ventricle is normal in size and function. Right ventricular systolic pressure is normal, no significant valvular disease noted Hold amlodipine since blood pressure is on the low normal side Monitor orthostatic vital signs #Atherosclerosis, including high risk ulcerated atherosclerotic plaque Triglycerides of 49 Cholesterol 76 LDL is 24 HDL is 42 High risk ulcerated atherosclerotic plaque noted on CT chest: As per vascular surgeon Dr. Lester no need for treatment at this point #Hepatic steatosis Incidental finding on CT abdomen pelvis Monitor LFTs #Prediabetes A1c 6.1 Patient on chronic steroid use Diet control Outpatient follow-up with PCP #Weakness/debility PT/OT saw the patient and are recommending acute rehab on discharge CODE STATUS: Discussed with patient, full code DVT prophylaxis: Apixaban Discharge planning to acute rehab likely in the next 48 hours Care plan discussed with patient, nursing staff, Son Fer Farias ([phone]) updated on the phone Admission and Anticipated Discharge Date Admission Date: October 07, 2024 Subjective Patient seen and examined Labs and echo reviewed Telemetry reviewed Denies any headache, dizziness, lightheadedness, chest pain or shortness of breath Denies any fever, chills or urinary symptoms She denies any bleeding Physical Exam Physical Exam: General: No acute distress Psych: Awake and alert, oriented to place and person HEENT: Anicteric sclera, moist oral mucosa CVS: Regular rate and rhythm Lungs: Bilateral air entry, no wheezing noted Abdomen: Soft, nontender, no rebound, no guarding Ext: Bilateral lower extremity pitting edema noted, right greater than left Neuro: No focal motor deficits noted, able to move all 4 extremities Results & Data Results & Data Vital Signs (Past 12 Hours) Vital Signs Temp Pulse Resp BP Pulse Ox O2 Del Method O2 Flow Rate 10/09/24 10:48 36.6 C 84 18 146/77 H 94 Room Air 10/09/24 07:37 36.3 C L 63 20 103/62 94 Room Air 10/09/24 03:47 36.8 C 70 18 111/62 96 Nasal Cannula 3 10/09/24 03:46 36.8 C 68 18 105/67 92 Nasal Cannula 2 Laboratory Results Laboratory Results - last 24 hr 10/08/24 10/08/24 10/08/24 11:32 12:25 13:01 WBC RBC Hgb Hct MCV MCH MCHC RDW Std Deviation RDW Coeff of Andrés Plt Count MPV Immature Gran % (Auto) Neut % (Auto) Lymph % (Auto) [place] % (Auto) Eos % (Auto) Baso % (Auto) Neut # (Auto) Lymph # (Auto) [place] # (Auto) Eos # (Auto) Baso # (Auto) Immature Gran # (Auto) Heparin Anti-Xa, Unfract 0.39 Sodium Potassium Chloride Carbon Dioxide Anion Gap BUN Creatinine Est Cr Clr Drug Dosing eGFR BUN/Creatinine Ratio Glucose POC Glucose 89 Calcium Magnesium Total Bilirubin AST ALT Alkaline Phosphatase Total Protein Albumin Globulin Albumin/Globulin Ratio Urine Color Yellow Urine Appearance Clear Urine pH 5.5 Ur Specific [place] > 1.045 H Urine Protein 1+ H Urine Glucose (UA) Negative Urine Ketones 1+ H Urine Blood Negative Urine Nitrite Negative Urine Bilirubin Negative Urine Urobilinogen Negative Ur Leukocyte Esterase Negative Urine WBC (Auto) 0-5 Urine RBC (Auto) 3-5 H U Hyaline Cast (Auto) 3-5 H U Epithel Cells (Auto) 0-2 Urine Bacteria (Auto) None Seen Urine Yeast Present A 10/08/24 10/08/24 10/09/24 16:18 20:06 06:12 WBC 15.42 H RBC 4.98 Hgb 13.7 Hct 43.2 MCV 86.7 MCH 27.5 MCHC 31.7 L RDW Std Deviation 48.4 H RDW Coeff of Andrés 15.3 H Plt Count 321 MPV 10.7 Immature Gran % (Auto) 2.0 Neut % (Auto) 78.1 Lymph % (Auto) 13.0 [place] % (Auto) 5.3 Eos % (Auto) 1.3 Baso % (Auto) 0.3 Neut # (Auto) 12.06 H Lymph # (Auto) 2.00 [place] # (Auto) 0.81 H Eos # (Auto) 0.20 Baso # (Auto) 0.04 Immature Gran # (Auto) 0.31 H Heparin Anti-Xa, Unfract Sodium 142 Potassium 3.5 Chloride 108 H Carbon Dioxide 26 Anion Gap 8 BUN 23 Creatinine 0.81 Est Cr Clr Drug Dosing 39.7 eGFR 71.98 BUN/Creatinine Ratio 28.4 H Glucose 83 POC Glucose 163 H 135 H Calcium 9.0 Magnesium 2.1 Total Bilirubin 0.7 D AST 12 L ALT 10 Alkaline Phosphatase 65 Total Protein 5.4 L Albumin 3.1 L Globulin 2.3 L Albumin/Globulin Ratio 1.3 Urine Color Urine Appearance Urine pH Ur Specific [place] Urine Protein Urine Glucose (UA) Urine Ketones Urine Blood Urine Nitrite Urine Bilirubin Urine Urobilinogen Ur Leukocyte Esterase Urine WBC (Auto) Urine RBC (Auto) U Hyaline Cast (Auto) U Epithel Cells (Auto) Urine Bacteria (Auto) Urine Yeast 10/09/24 07:14 WBC RBC Hgb Hct MCV MCH MCHC RDW Std Deviation RDW Coeff of Andrés Plt Count MPV Immature Gran % (Auto) Neut % (Auto) Lymph % (Auto) [place] % (Auto) Eos % (Auto) Baso % (Auto) Neut # (Auto) Lymph # (Auto) [place] # (Auto) Eos # (Auto) Baso # (Auto) Immature Gran # (Auto) Heparin Anti-Xa, Unfract Sodium Potassium Chloride Carbon Dioxide Anion Gap BUN Creatinine Est Cr Clr Drug Dosing eGFR BUN/Creatinine Ratio Glucose POC Glucose 89 Calcium Magnesium Total Bilirubin AST ALT Alkaline Phosphatase Total Protein Albumin Globulin Albumin/Globulin Ratio Urine Color Urine Appearance Urine pH Ur Specific [place] Urine Protein Urine Glucose (UA) Urine Ketones Urine Blood Urine Nitrite Urine Bilirubin Urine Urobilinogen Ur Leukocyte Esterase Urine WBC (Auto) Urine RBC (Auto) U Hyaline Cast (Auto) U Epithel Cells (Auto) Urine Bacteria (Auto) Urine Yeast PG Care Time/CCT Total # of Minutes Spent Total Time Spent with Patient: Total time spent is greater than 50% in coordination of care (as documented) at patient's floor/unit and/or counseling patient: Coding Level of Care Code 82298 SUB INP/OBS CARE 3/50MIN Diagnoses 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
[2024-10-09] MEDS: predniSONE 20 MG TAB PO STA (11:19)
[2024-10-09] MEDS: POTASSIUM CHLORIDE CRTAB 20 MEQ TABCR PO STA (11:20)
[2024-10-09] MEDS: FAMOTIDINE 10 MG TABLET PO SCH (11:20)
[2024-10-09] MEDS: FLUCONAZOLE 50 MG TAB PO ONE (16:10)
[2024-10-09] MEDS: CLOTRIMAZOLE VAGINAL CR 7 APPLN/45 GM TUBE PV SCH (16:11)
[2024-10-10 06:42] LABS: Basophils # (auto) 0.07 K/uL (0.00-0.20); Basophils % (auto) 0.5 %; Eosinophils # (auto) 0.04 K/uL (0.00-0.50); Eosinophils % (auto) 0.3 %; Hemoglobin 13.4 g/dl (12.0-16.0); Immature Granulocytes # (auto) 0.59 K/uL (0.01-0.20); Immature Granulocytes % (auto) 4.2 %; Lymphocytes # (auto) 1.43 K/uL (1.20-3.40); Lymphocytes % (auto) 10.3 %; Mean Corpuscular Hemoglobin 27.7 pg (25.0-34.0); Mean Corpuscular Hgb Conc 31.9 g/dL (32.0-36.0); Mean Platelet Volume 10.6 fL (9.4-12.4); Monocytes # (auto) 1.03 K/uL (0.11-0.59); Monocytes % (auto) 7.4 %; Neutrophils # (auto) 10.75 K/uL (1.40-6.50); Neutrophils % (auto) 77.3 %; Platelet Count 336 K/uL (130-400); RDW Coefficient of Variation 14.7 % (11.5-14.5); RDW Standard Deviation 46.9 fL (36.4-46.3); Red Blood Count 4.83 M/uL (4.20-5.40); White Blood Count 13.91 K/ul (4.8-10.8)
[2024-10-10 07:23] LABS: Anion Gap 5 (3-11); BUN Creatinine Ratio 29.4 (10-20); Blood Urea Nitrogen 20 mg/dl (6-23); Calcium 9.3 mg/dl (8.6-10.3); Carbon Dioxide 27 mmol/L (21-32); Chloride 107 mmol/L (98-107); Creatinine Clr Calc Pharmacy 47.3 ml/min; Glucose 105 mg/dl (70-99(Fasting)); Sodium 139 mmol/L (136-145)
[2024-10-10] MEDS: predniSONE 10 MG TABLET PO SCH (08:56)
[2024-10-10] MEDS ORDERED: predniSONE 20 MG TAB PO SCH (09:00)
[2024-10-10] MEDS: cefTRIAXone SODIUM 2,000 MG/50 ML BAG IV SCH (11:41)
--- NOTE | 2024-10-10 12:28 | Hospitalist Progress Note ---
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: (2) Acute deep vein thrombosis of both lower extremities: (3) UTI (urinary tract infection): (4) MGUS (monoclonal gammopathy of unknown significance): (5) Current chronic use of systemic steroids: (6) Rheumatoid arthritis: Plan 84-year-old female with past medical history of rheumatoid arthritis on prednisone and Plaquenil, recent admission at [facility] from 09/19/2024 to 09/21/2024 for sepsis due to Klebsiella urinary tract infection treated with cefepime and subsequently with oral Augmentin until 10/07/2024 presents from outpatient PCPs office for episode of nausea and vomiting, low blood pressure, generalized fatigue, weakness and difficulty ambulating. Patient had a CT abdomen and pelvis performed for episode of nausea and vomiting and was found to have bilateral extensive lower extremity DVTs extending to the IVC #Bilateral lower extremity DVTs with extensive DVT up to IVC Noted on CT abdomen pelvis and bilateral lower extremity Dopplers CTA shows no evidence of PE Vascular surgeon Dr. Lester saw the patient: He reviewed scans and at this point no need for IVC filter or thrombectomy per vascular surgery Patient was initially anticoagulated with IV heparin which has been transitioned to oral apixaban: 10 mg p.o. twice daily x 7 days and then switch to 5 mg p.o. twice daily Hypercoagulable profile sent on admission: Results pending #Suspected urinary tract infection Patient recently admitted for sepsis due to Klebsiella UTI from 09/19/2024 to 09/21/2024 Continue IV ceftriaxone (day 3) Blood cultures sent from ED showing no growth at 48 hours Urine culture sent after starting antibiotics: And shows no growth Urine analysis shows some yeast: Will give Diflucan 150 mg p.o. x 1 dose I suspect elevated white count is related to steroid use rather than infection at this point Follow-up cultures #Rheumatoid arthritis #Suspected adrenal insufficiency in setting of chronic prednisone use Checking cortisol levels and patient was on chronic steroids is of no clinical significance Patient was initially on IV hydrocortisone which has been stopped Oral prednisone dose increased to 10 mg daily and taper down to home dose of 5 mg p.o. daily Continue Plaquenil Outpatient follow-up with rheumatology and endocrinology #Essential hypertension #Elevated troponin: Likely demand ischemia in setting of bilateral lower extremity DVTs extending to the IVC Patient has no complaints of chest pain, EKG shows no ischemic changes Echo shows mild concentric LV H, left ventricular ejection fraction is greater than 70%, left ventricular is hyperdynamic, no thrombus, the wall motion is normal. Grade 1 diastolic dysfunction noted the right ventricle is normal in size and function. Right ventricular systolic pressure is normal, no significant valvular disease noted Hold amlodipine since blood pressure is on the low normal side Monitor orthostatic vital signs #Atherosclerosis, including high risk ulcerated atherosclerotic plaque Triglycerides of 49 Cholesterol 76 LDL is 24 HDL is 42 High risk ulcerated atherosclerotic plaque noted on CT chest: As per vascular surgeon Dr. Lester no need for treatment at this point #Hepatic steatosis Incidental finding on CT abdomen pelvis Monitor LFTs #Prediabetes A1c 6.1 Patient on chronic steroid use Diet control Outpatient follow-up with PCP #Weakness/debility PT/OT saw the patient and are recommending acute rehab on discharge CODE STATUS: Discussed with patient, full code DVT prophylaxis: Apixaban Discharge planning to acute rehab likely in the next 48 hours based on insurance authorization Care plan discussed with patient, nursing staff, Son Fer Farias ([phone]) updated on the phone yesterday, no new updates today Admission and Anticipated Discharge Date Admission Date: October 07, 2024 Subjective Patient seen and examined Labs reviewed No telemetry events Sitting in bed She denies any new complaints Physical Exam Physical Exam: General: No acute distress Psych: Awake and alert, oriented to self and person HEENT: Anicteric sclera, moist oral mucosa CVS: Regular rate and rhythm Lungs: Bilateral air entry, no wheezing noted Abdomen: Soft, nontender, no rebound, no guarding Ext: Bilateral lower extremity pitting edema noted, right greater than left Neuro: No focal motor deficits noted, able to move all 4 extremities Results & Data Results & Data Vital Signs (Past 12 Hours) Vital Signs Temp Pulse Pulse Resp BP Pulse Ox O2 Del Method 10/10/24 12:00 36.5 C 77 16 118/73 98 Room Air 10/10/24 07:31 36.4 C L 88 18 139/78 97 Room Air 10/10/24 07:00 75 10/10/24 02:30 36.4 C L 94 H 20 155/84 H 96 Room Air Laboratory Results Laboratory Results - last 24 hr 10/07/24 10/09/24 10/09/24 19:52 16:16 19:56 WBC RBC Hgb Hct MCV MCH MCHC RDW Std Deviation RDW Coeff of Andrés Plt Count MPV Immature Gran % (Auto) Neut % (Auto) Lymph % (Auto) [place] % (Auto) Eos % (Auto) Baso % (Auto) Neut # (Auto) Lymph # (Auto) [place] # (Auto) Eos # (Auto) Baso # (Auto) Immature Gran # (Auto) Sodium Potassium Chloride Carbon Dioxide Anion Gap BUN Creatinine Est Cr Clr Drug Dosing eGFR BUN/Creatinine Ratio Glucose POC Glucose 141 H 169 H Calcium Magnesium Homocysteine 18.5 H 10/10/24 10/10/24 10/10/24 05:56 07:41 07:48 WBC 13.91 H RBC 4.83 Hgb 13.4 Hct 42.0 MCV 87.0 MCH 27.7 MCHC 31.9 L RDW Std Deviation 46.9 H RDW Coeff of Andrés 14.7 H Plt Count 336 MPV 10.6 Immature Gran % (Auto) 4.2 Neut % (Auto) 77.3 Lymph % (Auto) 10.3 [place] % (Auto) 7.4 Eos % (Auto) 0.3 Baso % (Auto) 0.5 Neut # (Auto) 10.75 H Lymph # (Auto) 1.43 [place] # (Auto) 1.03 H Eos # (Auto) 0.04 Baso # (Auto) 0.07 Immature Gran # (Auto) 0.59 H Sodium 139 Potassium TNP 4.0 Chloride 107 Carbon Dioxide 27 Anion Gap 5 BUN 20 Creatinine 0.68 Est Cr Clr Drug Dosing 47.3 eGFR 86.36 BUN/Creatinine Ratio 29.4 H Glucose 105 H POC Glucose 128 H Calcium 9.3 Magnesium 2.0 Homocysteine 10/10/24 11:28 WBC RBC Hgb Hct MCV MCH MCHC RDW Std Deviation RDW Coeff of Andrés Plt Count MPV Immature Gran % (Auto) Neut % (Auto) Lymph % (Auto) [place] % (Auto) Eos % (Auto) Baso % (Auto) Neut # (Auto) Lymph # (Auto) [place] # (Auto) Eos # (Auto) Baso # (Auto) Immature Gran # (Auto) Sodium Potassium Chloride Carbon Dioxide Anion Gap BUN Creatinine Est Cr Clr Drug Dosing eGFR BUN/Creatinine Ratio Glucose POC Glucose 107 H Calcium Magnesium Homocysteine PG Care Time/CCT Total # of Minutes Spent Total Time Spent with Patient: Total time spent is greater than 50% in coordination of care (as documented) at patient's floor/unit and/or counseling patient: Coding Level of Care Code 39420 SUB INP/OBS CARE 2/35MIN Diagnoses 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
[2024-10-11 06:39] LABS: Hematocrit (blood only) 40.8 % (37.0-47.0); Hemoglobin 13.1 g/dl (12.0-16.0); Mean Corpuscular Hemoglobin 27.5 pg (25.0-34.0); Mean Corpuscular Hgb Conc 32.1 g/dL (32.0-36.0); Mean Corpuscular Volume 85.5 fL (80.0-100.0); Mean Platelet Volume 10.4 fL (9.4-12.4); Platelet Count 325 K/uL (130-400); RDW Coefficient of Variation 15.7 % (11.5-14.5); RDW Standard Deviation 48.7 fL (36.4-46.3); Red Blood Count 4.77 M/uL (4.20-5.40); White Blood Count 10.51 K/ul (4.8-10.8)
[2024-10-11 06:54] LABS: BUN Creatinine Ratio 22.2 (10-20); Calcium 9.2 mg/dl (8.6-10.3); Creatinine Clr Calc Pharmacy 59.6 ml/min; Magnesium 1.8 mg/dl (1.7-2.4); Potassium 3.7 mmol/L (3.5-5.1)
--- NOTE | 2024-10-11 10:15 | Hospitalist Progress Note ---
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: (2) Acute deep vein thrombosis of both lower extremities: (3) UTI (urinary tract infection): (4) MGUS (monoclonal gammopathy of unknown significance): (5) Current chronic use of systemic steroids: (6) Rheumatoid arthritis: Plan 84-year-old female with past medical history of rheumatoid arthritis on prednisone and Plaquenil, recent admission at [facility] from 09/19/2024 to 09/21/2024 for sepsis due to Klebsiella urinary tract infection treated with cefepime and subsequently with oral Augmentin until 10/07/2024 presents from outpatient PCPs office for episode of nausea and vomiting, low blood pressure, generalized fatigue, weakness and difficulty ambulating. Patient had a CT abdomen and pelvis performed for episode of nausea and vomiting and was found to have bilateral extensive lower extremity DVTs extending to the IVC #Bilateral lower extremity DVTs with extensive DVT up to IVC Noted on CT abdomen pelvis and bilateral lower extremity Dopplers CTA shows no evidence of PE Vascular surgeon Dr. Lester saw the patient: He reviewed scans and at this point no need for IVC filter or thrombectomy per vascular surgery Patient was initially anticoagulated with IV heparin which has been transitioned to oral apixaban: 10 mg p.o. twice daily x 7 days and then switch to 5 mg p.o. twice daily Hypercoagulable profile sent on 10/07/2024: Results pending #Suspected urinary tract infection Patient recently admitted for sepsis due to Klebsiella UTI from 09/19/2024 to 09/21/2024 Continue IV ceftriaxone (day 4/5) Blood cultures sent from ED showing no growth at 48 hours Urine culture sent after starting antibiotics: shows no growth I suspect elevated white count is related to steroid use rather than infection at this point #Rheumatoid arthritis #Suspected adrenal insufficiency in setting of chronic prednisone use Checking cortisol levels and patient was on chronic steroids is of no clinical significance Patient was initially on IV hydrocortisone which has been stopped Oral prednisone dose increased to 10 mg daily and taper down to home dose of 5 m g p.o. daily Continue Plaquenil Outpatient follow-up with rheumatology and endocrinology #Essential hypertension #Elevated troponin: Likely demand ischemia in setting of bilateral lower extremity DVTs extending to the IVC Patient has no complaints of chest pain, EKG shows no ischemic changes Echo shows mild concentric LV H, left ventricular ejection fraction is greater than 70%, left ventricular is hyperdynamic, no thrombus, the wall motion is normal. Grade 1 diastolic dysfunction noted the right ventricle is normal in size and function. Right ventricular systolic pressure is normal, no significant valvular disease noted Hold amlodipine since blood pressure is on the low normal side Monitor orthostatic vital signs #Atherosclerosis, including high risk ulcerated atherosclerotic plaque Triglycerides of 49 Cholesterol 76 LDL is 24 HDL is 42 High risk ulcerated atherosclerotic plaque noted on CT chest: As per vascular surgeon Dr. Lester no need for treatment at this point #Hepatic steatosis Incidental finding on CT abdomen pelvis Monitor LFTs #Prediabetes A1c 6.1 Patient on chronic steroid use Diet control Outpatient follow-up with PCP #Delirium with some underlying mild cognitive impairment TSH is 3.181 Check B12 QTc is 453 Discussed low-dose antipsychotic Seroquel 12.5 mg p.o. every evening: I have discussed this with the patient and her son Fer including increased risk of mortality and CVA in elderly. Patient and her son Fer are aware of the risk and are willing to try low-dose Seroquel 12.5 mg every evening starting tonight #Weakness/debility PT/OT saw the patient and are recommending acute rehab on discharge CODE STATUS: Full code DVT prophylaxis: Apixaban Discharge planning to acute rehab likely in the next 24 hours based on insurance authorization Care plan discussed with patient, nursing staff, Son Fer Farias ([phone]) updated Admission and Anticipated Discharge Date Admission Date: October 07, 2024 Subjective Patient seen and examined Overnight patient was confused and agitated This morning is pleasant and polite She denies any chest pain or shortness of breath Sitting up in a chair Reports good appetite Physical Exam Physical Exam: General: No acute distress Psych: Awake and alert, oriented to self and person HEENT: Anicteric sclera, moist oral mucosa CVS: Regular rate and rhythm Lungs: Bilateral air entry, no wheezing noted Abdomen: Soft, nontender, no rebound, no guarding Ext: Bilateral lower extremity pitting edema noted, right greater than left: Improving Neuro: No focal motor deficits noted, able to move all 4 extremities Results & Data Results & Data Vital Signs (Past 12 Hours) Vital Signs Temp Pulse Resp BP Pulse Ox O2 Del Method 10/11/24 07:15 36.4 C L 81 20 132/82 95 Room Air 10/11/24 02:55 36.6 C 82 18 135/83 93 Room Air 10/10/24 22:20 36.4 C L 94 H 20 123/75 93 Room Air Laboratory Results Laboratory Results - last 24 hr 10/10/24 10/10/24 10/10/24 11:28 16:33 19:34 WBC RBC Hgb Hct MCV MCH MCHC RDW Std Deviation RDW Coeff of Andrés Plt Count MPV Sodium Potassium Chloride Carbon Dioxide Anion Gap BUN Creatinine Est Cr Clr Drug Dosing eGFR BUN/Creatinine Ratio Glucose POC Glucose 107 H 131 H 127 H Calcium Magnesium 10/11/24 10/11/24 06:13 07:17 WBC 10.51 RBC 4.77 Hgb 13.1 Hct 40.8 MCV 85.5 MCH 27.5 MCHC 32.1 RDW Std Deviation 48.7 H RDW Coeff of Andrés 15.7 H Plt Count 325 MPV 10.4 Sodium 140 Potassium 3.7 Chloride 108 H Carbon Dioxide 26 Anion Gap 6 BUN 12 Creatinine 0.54 L Est Cr Clr Drug Dosing 59.6 eGFR 91.29 BUN/Creatinine Ratio 22.2 H Glucose 99 POC Glucose 93 Calcium 9.2 Magnesium 1.8 PG Care Time/CCT Total # of Minutes Spent Total Time Spent with Patient: Total time spent is greater than 50% in coordination of care (as documented) at patient's floor/unit and/or counseling patient: Coding Level of Care Code 97393 SUB INP/OBS CARE 235MIN Diagnoses 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
[2024-10-11] MEDS: POTASSIUM CHLORIDE CRTAB 20 MEQ TABCR PO STA (12:12)
[2024-10-11] MEDS: QUEtiapine FUMARATE 25 MG TABLET PO SCH (20:00)
[2024-10-11] MEDS: MAGNESIUM OXIDE 400 MG TAB PO SCH (20:01)
[2024-10-11] MEDS: MELATONIN 3 MG TAB PO PRN (21:38)
[2024-10-12 01:52] LABS: PTT LA Screen 32 sec (<=40)
[2024-10-12] MEDS: predniSONE 5 MG TAB PO SCH (08:59)
--- NOTE | 2024-10-12 10:09 | Hospitalist Progress Note ---
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: (2) Acute deep vein thrombosis of both lower extremities: (3) UTI (urinary tract infection): (4) MGUS (monoclonal gammopathy of unknown significance): (5) Current chronic use of systemic steroids: (6) Rheumatoid arthritis: Plan 84-year-old female with past medical history of rheumatoid arthritis on prednisone and Plaquenil, recent admission at [facility] from 09/19/2024 to 09/21/2024 for sepsis due to Klebsiella urinary tract infection treated with cefepime and subsequently with oral Augmentin until 10/07/2024 presents from outpatient PCPs office for episode of nausea and vomiting, low blood pressure, generalized fatigue, weakness and difficulty ambulating. Patient had a CT abdomen and pelvis performed for episode of nausea and vomiting and was found to have bilateral extensive lower extremity DVTs extending to the IVC #Bilateral lower extremity DVTs with extensive DVT up to IVC Noted on CT abdomen pelvis and bilateral lower extremity Dopplers CTA shows no evidence of PE Vascular surgeon Dr. Lester saw the patient: He reviewed scans and at this point no need for IVC filter or thrombectomy per vascular surgery Patient was initially anticoagulated with IV heparin which has been transitioned to oral apixaban: 10 mg p.o. twice daily x 7 days and then switch to 5 mg p.o. twice daily Hypercoagulable profile sent on 10/07/2024: Results pending #Suspected urinary tract infection Patient recently admitted for sepsis due to Klebsiella UTI from 09/19/2024 to 09/21/2024 Patient is finished 5 days of IV ceftriaxone and will stop ceftriaxone at this point Blood cultures sent from ED showing no growth at 48 hours Urine culture sent after starting antibiotics: shows no growth I suspect elevated white count is related to steroid use rather than infection at this point #Rheumatoid arthritis #Suspected adrenal insufficiency in setting of chronic prednisone use Checking cortisol levels and patient was on chronic steroids is of no clinical significance Patient was initially on IV hydrocortisone which has been stopped Oral prednisone dose increased to 10 mg daily and taper down to home dose of 5 mg p.o. daily Continue Plaquenil Outpatient follow-up with rheumatology and endocrinology #Essential hypertension #Elevated troponin: Likely demand ischemia in setting of bilateral lower extremity DVTs extending to the IVC Patient has no complaints of chest pain, EKG shows no ischemic changes Echo shows mild concentric LV H, left ventricular ejection fraction is greater than 70%, left ventricular is hyperdynamic, no thrombus, the wall motion is normal. Grade 1 diastolic dysfunction noted the right ventricle is normal in size and function. Right ventricular systolic pressure is normal, no significant valvular disease noted Hold amlodipine since blood pressure is on the low normal side Monitor orthostatic vital signs #Atherosclerosis, including high risk ulcerated atherosclerotic plaque Triglycerides of 49 Cholesterol 76 LDL is 24 HDL is 42 High risk ulcerated atherosclerotic plaque noted on CT chest: As per vascular surgeon Dr. Lester no need for treatment at this point #Hepatic steatosis Incidental finding on CT abdomen pelvis Monitor LFTs #Prediabetes A1c 6.1 Patient on chronic steroid use Diet control Outpatient follow-up with PCP #Delirium with some underlying mild cognitive impairment TSH is 3.181 Check B12 QTc is 453 Continue Seroquel 12.5 mg p.o. every evening: I have discussed this with the patient and her son Fer including increased risk of mortality and CVA in elderly on 10/11/2024. Patient and her son Fer are aware of the risk and are willing to try low-dose Seroquel 12.5 mg every evening starting tonight #Weakness/debility PT/OT saw the patient and are recommending acute rehab on discharge CODE STATUS: Full code DVT prophylaxis: Apixaban Patient is medically stable for discharge to acute rehab: Awaiting insurance authorization Care plan discussed with patient, nursing staff, Son Fer Farias ([phone]) updated Admission and Anticipated Discharge Date Admission Date: October 07, 2024 Subjective Patient seen and examined No new complaints Resting comfortably Reports good appetite No agitation overnight after starting Seroquel Physical Exam Physical Exam: General: No acute distress Psych: Awake and alert, oriented to self and person HEENT: Anicteric sclera, moist oral mucosa CVS: Regular rate and rhythm Lungs: Bilateral air entry, no wheezing noted Abdomen: Soft, nontender, no rebound, no guarding Ext: Bilateral lower extremity pitting edema noted, right greater than left: Improving Neuro: No focal motor deficits noted, able to move all 4 extremities Results & Data Results & Data Vital Signs (Past 12 Hours) Vital Signs Temp Pulse Resp BP Pulse Ox O2 Del Method 10/12/24 07:17 36.4 C L 75 16 148/74 H 96 Room Air Laboratory Results Laboratory Results - last 24 hr 10/07/24 10/11/24 10/11/24 19:52 06:13 11:22 LA PTT Screen 32 Protein S Activity 54 L POC Glucose 104 H Vitamin B12 > 1500 H 10/11/24 10/11/24 10/12/24 16:21 20:00 07:42 LA PTT Screen Protein S Activity POC Glucose 166 H 134 H 109 H Vitamin B12 PG Care Time/CCT Total # of Minutes Spent Total Time Spent with Patient: Total time spent is greater than 50% in coordination of care (as documented) at patient's floor/unit and/or counseling patient: Coding Level of Care Code 76847 SUB INP/OBS CARE 2/35MIN Diagnoses 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
--- NOTE | 2024-10-13 10:11 | Hospitalist Progress Note ---
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: (2) Acute deep vein thrombosis of both lower extremities: (3) UTI (urinary tract infection): (4) MGUS (monoclonal gammopathy of unknown significance): (5) Current chronic use of systemic steroids: (6) Rheumatoid arthritis: Plan 84-year-old female with past medical history of rheumatoid arthritis on prednisone and Plaquenil, recent admission at [facility] from 09/19/2024 to 09/21/2024 for sepsis due to Klebsiella urinary tract infection treated with cefepime and subsequently with oral Augmentin until 10/07/2024 presents from outpatient PCPs office for episode of nausea and vomiting, low blood pressure, generalized fatigue, weakness and difficulty ambulating. Patient had a CT abdomen and pelvis performed for episode of nausea and vomiting and was found to have bilateral extensive lower extremity DVTs extending to the IVC #Bilateral lower extremity DVTs with extensive DVT up to IVC Noted on CT abdomen pelvis and bilateral lower extremity Dopplers CTA shows no evidence of PE Vascular surgeon Dr. Lester saw the patient: He reviewed scans and at this point no need for IVC filter or thrombectomy per vascular surgery Patient was initially anticoagulated with IV heparin which has been transitioned to oral apixaban: 10 mg p.o. twice daily x 7 days and then switch to 5 mg p.o. twice daily on 10/15/2024 Hypercoagulable profile sent on 10/07/2024: Results pending #Suspected urinary tract infection Patient recently admitted for sepsis due to Klebsiella UTI from 09/19/2024 to 09/21/2024 Patient is finished 5 days of IV ceftriaxone and will stop ceftriaxone at this point Blood cultures sent from ED showing no growth at 48 hours Urine culture sent after starting antibiotics: shows no growth I suspect elevated white count is related to steroid use rather than infection at this point #Rheumatoid arthritis #Suspected adrenal insufficiency in setting of chronic prednisone use Checking cortisol levels and patient was on chronic steroids is of no clinical significance Patient was initially on IV hydrocortisone which has been stopped Oral prednisone dose increased to 10 mg daily and tapered down to home dose of 5 mg p.o. daily Continue Plaquenil Outpatient follow-up with rheumatology and endocrinology #Essential hypertension #Elevated troponin: Likely demand ischemia in setting of bilateral lower extremity DVTs extending to the IVC Patient has no complaints of chest pain, EKG shows no ischemic changes Echo shows mild concentric LV H, left ventricular ejection fraction is greater than 70%, left ventricular is hyperdynamic, no thrombus, the wall motion is normal. Grade 1 diastolic dysfunction noted the right ventricle is normal in size and function. Right ventricular systolic pressure is normal, no significant valvular disease noted Amlodipine has been stopped since patient has been orthostatic and does not require to be on antihypertensives at this point Monitor orthostatic vital signs #Atherosclerosis, including high risk ulcerated atherosclerotic plaque Triglycerides of 49 Cholesterol 76 LDL is 24 HDL is 42 High risk ulcerated atherosclerotic plaque noted on CT chest: As per vascular surgeon Dr. Lester no need for treatment at this point #Hepatic steatosis Incidental finding on CT abdomen pelvis Monitor LFTs #Prediabetes A1c 6.1 Patient on chronic steroid use Diet control Outpatient follow-up with PCP #Delirium with some underlying mild cognitive impairment TSH is 3.181 B12 greater than 1500 QTc is 453 Continue Seroquel 12.5 mg p.o. every evening: I have discussed this with the patient and her son Fer including increased risk of mortality and CVA in elderly on 10/11/2024. Patient and her son Fer are aware of the risk and are willing to try low-dose Seroquel 12.5 mg every evening which was started on 10/12/2024 #Weakness/debility PT/OT saw the patient and are recommending acute rehab on discharge CODE STATUS: Full code DVT prophylaxis: Apixaban Patient is medically stable for discharge to acute rehab: Awaiting insurance authorization Care plan discussed with patient, nursing staff, Son Fer Farias ([phone]) updated yesterday, no new updates Admission and Anticipated Discharge Date Admission Date: October 07, 2024 Subjective Patient seen and examined She is smiling, denies any new complaints She loves the food in the hospital She is aware she is in the hospital Denies any chest pain, shortness of breath Physical Exam Physical Exam: General: No acute distress Psych: Awake and alert, oriented to self and person HEENT: Anicteric sclera, moist oral mucosa CVS: Regular rate and rhythm Lungs: Bilateral air entry, no wheezing noted Abdomen: Soft, nontender, no rebound, no guarding Ext: Bilateral lower extremity no edema noted Results & Data Results & Data Vital Signs (Past 12 Hours) Vital Signs Temp Pulse Resp BP Pulse Ox O2 Del Method 10/13/24 07:45 36.3 C L 70 18 136/83 98 Room Air Laboratory Results Laboratory Results - last 24 hr 10/12/24 10/12/24 10/12/24 11:43 16:41 20:27 POC Glucose 105 H 110 H 134 H 10/13/24 07:39 POC Glucose 95 PG Care Time/CCT Total # of Minutes Spent Total Time Spent with Patient: Total time spent is greater than 50% in coordination of care (as documented) at patient's floor/unit and/or counseling patient: Coding Level of Care Code 96197 SUB INP/OBS CARE 11/21MIN Diagnoses 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
[2024-10-14 06:12] LABS: Hematocrit (blood only) 38.1 % (37.0-47.0); Hemoglobin 12.3 g/dl (12.0-16.0); Mean Corpuscular Hgb Conc 32.3 g/dL (32.0-36.0); Mean Corpuscular Volume 86.6 fL (80.0-100.0); Mean Platelet Volume 10.5 fL (9.4-12.4); Platelet Count 290 K/uL (130-400); RDW Coefficient of Variation 16.1 % (11.5-14.5); RDW Standard Deviation 50.4 fL (36.4-46.3); White Blood Count 12.89 K/ul (4.8-10.8)
[2024-10-14 06:34] LABS: Albumin Globulin Ratio 1.4 (0.9-2); Albumin Level 2.8 gm/dl (3.4-5.0); BUN Creatinine Ratio 28.6 (10-20); Bilirubin,Total 0.6 mg/dl (0.2-1.0); Calcium 8.9 mg/dl (8.6-10.3); Creatinine Clr Calc Pharmacy 41.8 ml/min; Magnesium 1.8 mg/dl (1.7-2.4); Potassium 3.9 mmol/L (3.5-5.1); Total Protein 4.8 gm/dl (6.0-8.3)
[2024-10-14] MEDS: FAMOTIDINE 10 MG TABLET PO SCH (08:12)
--- NOTE | 2024-10-14 11:49 | Hospitalist Progress Note ---
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: (2) Acute deep vein thrombosis of both lower extremities: (3) UTI (urinary tract infection): (4) MGUS (monoclonal gammopathy of unknown significance): (5) Current chronic use of systemic steroids: (6) Rheumatoid arthritis: Plan 84-year-old female with past medical history of rheumatoid arthritis on prednisone and Plaquenil, recent admission at [facility] from 09/19/2024 to 09/21/2024 for sepsis due to Klebsiella urinary tract infection treated with cefepime and subsequently with oral Augmentin until 10/07/2024 presents from outpatient PCPs office for episode of nausea and vomiting, low blood pressure, generalized fatigue, weakness and difficulty ambulating. Patient had a CT abdomen and pelvis performed for episode of nausea and vomiting and was found to have bilateral extensive lower extremity DVTs extending to the IVC #Bilateral lower extremity DVTs with extensive DVT up to IVC Noted on CT abdomen pelvis and bilateral lower extremity Dopplers CTA shows no evidence of PE Vascular surgeon Dr. Lester saw the patient: He reviewed scans and at this point no need for IVC filter or thrombectomy per vascular surgery Patient was initially anticoagulated with IV heparin which has been transitioned to oral apixaban: 10 mg p.o. twice daily x 7 days and then switch to 5 mg p.o. twice daily on 10/15/2024 Hypercoagulable profile sent on 10/07/2024: Results pending #Suspected urinary tract infection Patient recently admitted for sepsis due to Klebsiella UTI from 09/19/2024 to 09/21/2024 Patient is finished 5 days of IV ceftriaxone and will stop ceftriaxone at this point Blood cultures sent from ED showing no growth at 48 hours Urine culture sent after starting antibiotics: shows no growth I suspect elevated white count is related to steroid use rather than infection at this point No antibiotics currently #Rheumatoid arthritis #Suspected adrenal insufficiency in setting of chronic prednisone use Checking cortisol levels and patient was on chronic steroids is of no clinical significance Patient was initially on IV hydrocortisone which has been stopped Oral prednisone dose increased to 10 mg daily and tapered down to home dose of 5 mg p.o. daily Continue Plaquenil Outpatient follow-up with rheumatology and endocrinology #Essential hypertension #Elevated troponin: Likely demand ischemia in setting of bilateral lower extremity DVTs extending to the IVC Patient has no complaints of chest pain, EKG shows no ischemic changes Echo shows mild concentric LV H, left ventricular ejection fraction is greater than 70%, left ventricular is hyperdynamic, no thrombus, the wall motion is normal. Grade 1 diastolic dysfunction noted the right ventricle is normal in size and function. Right ventricular systolic pressure is normal, no significant valvular disease noted Amlodipine has been stopped since patient has been orthostatic and does not require to be on antihypertensives at this point Monitor orthostatic vital signs #Atherosclerosis, including high risk ulcerated atherosclerotic plaque Triglycerides of 49 Cholesterol 76 LDL is 24 HDL is 42 High risk ulcerated atherosclerotic plaque noted on CT chest: As per vascular surgeon Dr. Lester no need for treatment at this point #Hepatic steatosis Incidental finding on CT abdomen pelvis Monitor LFTs #Prediabetes A1c 6.1 Patient on chronic steroid use Diet control Outpatient follow-up with PCP #Delirium with some underlying mild cognitive impairment TSH is 3.181 B12 greater than 1500 QTc is 453 Continue Seroquel 12.5 mg p.o. every evening: I have discussed this with the patient and her son Fer including increased risk of mortality and CVA in elderly on 10/11/2024. Patient and her son Fer are aware of the risk and are willing to try low-dose Seroquel 12.5 mg every evening which was started on 10/12/2024 #Weakness/debility PT/OT saw the patient and are recommending acute rehab on discharge CODE STATUS: Full code DVT prophylaxis: Apixaban Patient is medically stable for discharge to acute rehab: Awaiting insurance authorization Spoke with casey saw operator, awaiting placement. Admission and Anticipated Discharge Date Admission Date: October 07, 2024 Subjective Pt seen working with PT/OT, doing well, no complaints this morning. Review of Systems Review of Systems: CONST: Negative for fever, body aches and chills. HENT: Negative for neck pain/stiffness, headache, congestion, sore throat, swelling. EYES: Negative for discharge/pain or vision changes. RESP: Negative for cough/hemoptysis and shortness of breath. CV: Negative chest pain, difficulty breathing, palpitations. ABD: Negative pain, nausea, vomiting. : Negative increase frequency, dysuria, blood in urine or stool. MUSC: Negative for muscle aches, edema. SKIN: Negative rash, lesions/sores. NEURO: Negative headache, dizziness, weakness. Physical Exam Physical Exam: GENERAL APPEARANCE NAD, activity normal for age, well developed/ well nourished, no cyanosis, pallor, or diaphoresis. EYES lids/conjunctiva normal. EARS/NOSE/THROAT Mucous membranes moist, nares normal, lips/teeth normal uvula midline without oral pharyngeal erythema, exudate or swelling TMs normal bilaterally. No lymphangitis/lymphedema. HEAD/NECK normocephalic atraumatic, no facial trauma, neck is supple. RESPIRATORY respiratory effort normal, speaks in full sentences, no tripod position, no accessory muscle use. Lungs clear to auscultation without rhonchi, wheezes, rales CARDIAC Regular rate and rhythm, no edema. ABDOMINAL Soft, ND/NT. No evidence of fluid wave. No pulsatile masses on exam, rebound tenderness, Esparza sign or pain over Mcburney's point. MUSCLES/EXTREMITIES No abnormal range of motion, no swelling. SKIN Warm, pink and dry. No rashes, dermatoses, petechiae or lesions. NEUROLOGICAL Speech is clear and appropriate. Normal level of consciousness. Gait and coordination are normal. 5/5 strength in all extremities. PSYCH Normal mood and affect. 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
[2024-10-15 07:41] LABS: Anti Cardiolipin Ab IgG <2.0 GPL-U/mL; Anti Cardiolipin Ab IgM <2.0 MPL-U/mL; B2 Glycoprotein IgG <2.0 U/mL (<20.0); B2 Glycoprotein IgM <2.0 U/mL (<20.0)
[2024-10-15 07:51] VITALS: BP 109/70; PULSE 71; RESP 16; TEMP 98.2; O2SAT 96
--- NOTE | 2024-10-15 11:30 | Hospitalist Progress Note ---
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 Lester saw the patient: He reviewed scans and at this point no need for IVC filter or thrombectomy per vascular surgery -Patient was initially anticoagulated with IV heparin which has been transitioned to oral apixaban (2) UTI (urinary tract infection): Plan: -s/p 5 days of rocephin -resolved (3) MGUS (monoclonal gammopathy of unknown significance): (4) Current chronic use of systemic steroids: Plan: Patient was initially on IV hydrocortisone which has been stopped Oral prednisone dose increased to 10 mg daily and tapered down to home dose of 5 mg p.o. daily Continue Plaquenil (5) Rheumatoid arthritis: Plan: Outpatient follow-up with rheumatology Plan PT/OT saw the patient and are recommending acute rehab on discharge CODE STATUS: Full code DVT prophylaxis: Apixaban Patient is medically stable for discharge to acute rehab: Peer to peer completed today 10/15 and pt approved for SNF placement. Spoke with catalytic case operator, awaiting placement. Admission and Anticipated Discharge Date Admission Date: October 07, 2024 Subjective Pt seen resting comfortably in bed, no complaints this morning. Review of Systems Review of Systems: CONST: Negative for fever, body aches and chills. HENT: Negative for neck pain/stiffness, headache, congestion, sore throat, swelling. EYES: Negative for discharge/pain or vision changes. RESP: Negative for cough/hemoptysis and shortness of breath. CV: Negative chest pain, difficulty breathing, palpitations. ABD: Negative pain, nausea, vomiting. : Negative increase frequency, dysuria, blood in urine or stool. MUSC: Negative for muscle aches, edema. SKIN: Negative rash, lesions/sores. NEURO: Negative headache, dizziness, weakness. Physical Exam Physical Exam: GENERAL APPEARANCE NAD, activity normal for age, well developed/ well nourished, no cyanosis, pallor, or diaphoresis. EYES lids/conjunctiva normal. EARS/NOSE/THROAT Mucous membranes moist, nares normal, lips/teeth normal uvula midline without oral pharyngeal erythema, exudate or swelling TMs normal bilaterally. No lymphangitis/lymphedema. HEAD/NECK normocephalic atraumatic, no facial trauma, neck is supple. RESPIRATORY respiratory effort normal, speaks in full sentences, no tripod position, no accessory muscle use. Lungs clear to auscultation without rhonchi, wheezes, rales CARDIAC Regular rate and rhythm, no edema. ABDOMINAL Soft, ND/NT. No evidence of fluid wave. No pulsatile masses on exam, rebound tenderness, Esparza sign or pain over Mcburney's point. MUSCLES/EXTREMITIES No abnormal range of motion, no swelling. SKIN Warm, pink and dry. No rashes, dermatoses, petechiae or lesions. NEUROLOGICAL Speech is clear and appropriate. Normal level of consciousness. Gait and coordination are normal. 5/5 strength in all extremities. PSYCH Normal mood and affect. 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
--- NOTE | 2024-10-15 13:33 | Discharge Summary ---
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 Lester saw the patient: He reviewed scans and at this point no need for IVC filter or thrombectomy per vascular surgery -Patient was initially anticoagulated with IV heparin which has been transitioned to oral apixaban (2) UTI (urinary tract infection): -s/p 5 days of rocephin -resolved (3) MGUS (monoclonal gammopathy of unknown significance): (4) Current chronic use of systemic steroids: Patient was initially on IV hydrocortisone which has been stopped Oral prednisone dose increased to 10 mg daily and tapered down to home dose of 5 mg p.o. daily Continue Plaquenil (5) Rheumatoid arthritis: Outpatient follow-up with rheumatology Plan PT/OT saw the patient and are recommending acute rehab on discharge CODE STATUS: Full code DVT prophylaxis: Apixaban Patient is medically stable for discharge to acute rehab: Peer to peer completed today 10/15 and pt approved for SNF placement. Spoke with rn case manager hospice, awaiting placement. Admission HPI Per Admitting Provider The patient is a 84-year-old female with past medical history including recent admission from 09/19-09/21/2024 for sepsis due to Klebsiella urinary tract infection, no initially treated with cefepime in hospital, and then discharged on 3 additional days of Augmentin. The patient had been seen for hospital follow-up in the office on 09/22/2024, and was placed on Augmentin for 5 additional days, which was completed on 10/07/2024. The patient was then seen for follow-up in the outpatient office again today, an episode of nausea and vomiting, with low blood pressure, and was then referred to the ED for assessment. Patient also had worsening of generalized fatigue, and some associated shortness of breath and dyspnea on exertion. Discharge Exam GENERAL APPEARANCE NAD, activity normal for age, well developed/ well nourished, no cyanosis, pallor, or diaphoresis. EYES lids/conjunctiva normal. EARS/NOSE/THROAT Mucous membranes moist, nares normal, lips/teeth normal uvula midline without oral pharyngeal erythema, exudate or swelling TMs normal bilaterally. No lymphangitis/lymphedema. HEAD/NECK normocephalic atraumatic, no facial trauma, neck is supple. RESPIRATORY respiratory effort normal, speaks in full sentences, no tripod position, no accessory muscle use. Lungs clear to auscultation without rhonchi, wheezes, rales CARDIAC Regular rate and rhythm, no edema. ABDOMINAL Soft, ND/NT. No evidence of fluid wave. No pulsatile masses on exam, rebound tenderness, Esparza sign or pain over Mcburney's point. MUSCLES/EXTREMITIES No abnormal range of motion, no swelling. SKIN Warm, pink and dry. No rashes, dermatoses, petechiae or lesions. NEUROLOGICAL Speech is clear and appropriate. Normal level of consciousness. Gait and coordination are normal. 5/5 strength in all extremities. PSYCH Normal mood and affect. Judgement/competence is appropriate Discharge Plan Discharge Items Patient Disposition: Transfer [facility] Reason For Visit: DVT TO IVC, UTI Discharge Diagnosis: DVT Activity: Resume your previous activity Non-emergency contact: Primary Care Provider Call non-emergency contact if: you have any medication questions Follow-up/Referrals: Eliel Lynn MD [Primary Care Provider] - Diet: Regular Addtl Attending Provider Instructions: Follow up with [facility]h in 1 week Pending Studies at Discharge: No Stand-Alone Forms: My [facility] Skilled Items Patient informed of condition?: Yes DNR: No Discharge Level of Care: Skilled Communicable Disease: No Discharge Prognosis: Stable Lines: None Urinary Catheter: No Medications and DC Order Prescriptions: New Eliquis 5 mg tablet 5 mg PO BID Qty: 60 0RF Continued Calcium 600 + D(3) 600 mg-5 mcg (200 unit) capsule 1 cap PO PM cholecalciferol (vitamin D3) 125 mcg (5,000 unit) capsule 5,000 unit PO PM Qty: 90 3RF mirtazapine 7.5 mg tablet 7.5 mg PO DAILY Qty: 30 2RF cyanocobalamin (vitamin B-12) [Vitamin B-12] 1,000 mcg Tablet 1,000 mcg PO HS prednisone 5 mg tablet 5 mg PO PM amlodipine 2.5 mg tablet 2.5 mg PO PM Rx Instructions: with 5 mg tab amlodipine 5 mg tablet 5 mg PO PM hydroxychloroquine 200 mg tablet 200 mg PO PM Discontinued amoxicillin-pot clavulanate 875-125 mg tablet 1 tab PO BID 7 Days Qty: 14 0RF Discharge Orders: Discharge Order (Routine); Ordered 10/15/24 Ordered By: Severo Gaona/Other Patient Handouts: A1C Admission Data Admit Date/Time: 10/07/24 20:03 Attending Provider: Severo Cosme Admit Provider: Joby Webb Primary Care Provider: Eliel Lynn V. Other Providers: [facility]; Anuja Sheppard [facility]; Joby Webb; Kimani Lester Hospital Stay Data Consultations 10/07/24 19:11 ED Decision to Admit Stat 10/07/24 22:27 Consult Vascular Surgery Routine Diagnostic Imagining Performed 10/07/24 16:33 CT abd pelvis IV con only Stat CT head/brain wo con Stat 10/07/24 19:41 CT angio chest PE protocol Stat US venous doppler LE BI Stat Pending Results Patient Have Any Pending Studies at Discharge: No Discharge Instructions Given to Patient (Per Discharging Provider) Follow up with [facility] in 1 week Total Time Total Time Spent Total Time Spent (In Minutes): 50min Coding Level of Care Code 36466 INP/OBS DISCH >30 MIN Diagnoses 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
[2024-10-15 23:26] LABS: Factor 5 Mutation POSITIVE
== END 2024-10-15 15:34 | DRG 294 ==
LOC: ED 15:35 → 2S 20:03 → SUATTDRO 20:03 → 2S 22:02 → 3E 10-11 21:26

== ENCOUNTER 2024-11-17 13:10 | Inpatient (IN) ==
--- NOTE | 2024-11-17 13:18 | ED Triage Note ---
Date of Service November 17, 2024 Provider in Triage Author: Lelo Hunter History of Present Illness This patient was briefly evaluated while in triage. An abbreviated physical exam was performed. This patient is a 84-year-old Female who presents to the ED for evaluation illness x 3 weeks-saw PCP 11/02, treated with antibiotics n/v/d on antibiotics, incontinent of stool, anorexia, decreased PO intake, SOB dermatitis on buttocks Physical Exam GENERAL: NAD CARDIOVASCULAR: RRR RESPIRATORY: CTA Initial orders for labs and / or imaging were placed and patient was placed in the waiting area until a bed is available. Please see further documentation for the full ED course.
--- NOTE | 2024-11-17 14:39 | Emergency Department Note ---
Impression & Plan Elevated troponin, Nausea vomiting and diarrhea, Acute dehydration, Generalized weakness ED Provider Note NAME: TAMIKO SALGADO AGE: 84 SEX: F : 1940 ARRIVES VIA: Walk-In INFORMANT: Patient, family ember ED PROVIDER(S): Derek Gardner MD CHIEF COMPLAINT: Shortness of breath, weakness, fatigue MEDICAL DECISION MAKING: Patient presents for the above. IV was established and blood work is obtained. BioFire along with stool studies also obtained. Patient was ordered IV fluids and IV Zofran. The patient's blood work shows a white count of 17 with a hemoglobin 17.4. This may be reactive from the patient's vomiting and diarrhea. Kidney function is unremarkable. Patient troponin is 62. BioFire negative. The patient did feel improved and was able to tolerate somebody drink. Chest x-ray is negative. Given the patient's nausea vomiting diarrhea levels as well as her weakness cannot go home at this time as she is not fit to do so as there is not care at home that is adequate as the family brisa states that she is unable to participate in her activities of daily living. I did speak the on-call hospitalist service and the patient was admitted by Dr. Mondragon. Discussion w/ other healthcare providers: Dr. Mondragon inpatient medicine service Prior /Outside records reviewed: I did review part of a discharge summary from October 15 from [facility]. Patient was noted to have DVT of the IVC. Reportedly not a need for IVC filter or thrombectomy. Patient was transition from IV heparin to Eliquis at that time. Differential diagnosis: Infection, dehydration, metabolic abnormality, hypo/hyperglycemia, electrolyte imbalance, anemia, UTI, pneumonia, thyroid dysfunction among others were considered. Diagnostics, as interpreted by me: ECG: Sinus with occasional PVCs noted, rate of 96, normal IN and QRS, prolonged QTc, left axis deviation no obvious STEMI. Cardiac monitoring: An order was placed for continuous cardiac monitoring. The monitor shows a rate of 95 with sinus rhythm. Patient was placed on pulse oximetry Medical decision rules: none Imaging studies: I informally interpreted the patient's chest x-ray with formal report to follow. HPI: Patient presents due to concern for shortness of breath in addition to nausea vomiting and diarrhea. The patient's family were at bedside reports that the patient was admitted toward the end of September due to concerns for blood clots. Patient subsequently to rehab at the beginning of the month and stated [facility] for approximately 9 days. Patient reportedly went home was doing quite well with regard to her rehab but had developed a bit of a cough. The patient was placed on antibiotics due to concerns for an outpatient chest x-ray that showed possible pneumonia. Patient's family members also developed some similar symptoms. Reportedly though more recently the patient has developed nausea vomiting and diarrhea. The patient has been more weak and fatigued. The patient is no longer getting up and out of bed and is not able to get to the bathroom. Patient did complete her course of antibiotics. The patient was complaining of some shortness of breath with laying flat. Patient said cough that has been nonproductive. Currently at rest sitting upright the patient feels improved. No leg swelling or calf pain. Patient has had decreased p.o. intake. Patient denies any abdominal pain. Patient denies any chest pains. PAST MEDICAL HISTORY: See Below PAST SURGICAL HISTORY: See Below SOCIAL HISTORY: See Below HOME MEDICATIONS: See Below ALLERGIES: See Below VITALS: See Below PHYSICAL EXAMINATION: GENERAL: NAD, non-toxic. EYE EXAM: Normal conjunctiva. PERRL, no anisocoria and EOM's grossly intact w/o pain. OROPHARYNX: Moist mucus membranes, grossly normal dentition. NECK: Trachea midline, no stridor. Supple, no nuchal rigidity, no adenopathy, non-tender. No signs of meningismus. FROM of the neck with good chin to chest and neck extension. LUNGS: Clear to auscultation. Normal chest wall mechanics. HEART: NSR, no MRG. ABDOMEN: Abdomen soft, non-tender, no masses, no rebound or guarding. BACK: No CVA TTP. SKIN: No rashes and no bruising. UPPER EXTREMITIES: Upper extremities are grossly normal. LOWER EXTREMITIES: Grossly normal, no edema. NEURO EXAM: A&O x3, cranial nerves II-XII grossly intact, normal speech, moves all 4 extremities. Past Med/Surg History Problem List (Updated 11/20/24 @ 17:50 by Derek Gardner MD) Generalized weakness (Acute) Acute dehydration (Acute) Nausea vomiting and diarrhea (Acute) Elevated troponin (Acute) Acute UTI (Acute) Carotid artery stenosis Rheumatoid arthritis History of DVT (deep vein thrombosis) Hypophosphatemia (Acute) Leukocytosis Cognitive impairment (Acute) UTI (urinary tract infection) Encephalopathy acute (Acute) Hypertension Hypernatremia Lower respiratory tract infection Nausea, vomiting, and diarrhea Gait disturbance Weakness (Acute) Hypokalemia (Acute) Hypomagnesemia (Acute) Sepsis Elevated troponin I level (Acute) Greater trochanteric pain syndrome Osteopenia (Acute) Left hip pain (Acute) Hyperglycemia (Acute) Greater trochanteric bursitis (Acute) Forgetfulness (Acute) Irregular heart rate Elevated hemoglobin Medical History Acute deep vein thrombosis of both lower extremities 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 Vitamin B12 deficiency Multiple thyroid nodules Osteoporosis SNHL (sensorineural hearing loss) Secondary hyperparathyroidism Vitamin D deficiency disease Aortic arch atherosclerosis Current chronic use of systemic steroids Elevated lactic acid level MGUS (monoclonal gammopathy of unknown significance) Surgical History S/P tubal ligation S/P tonsillectomy Family History Father Congestive heart failure Myocardial infarction Other Breast cancer Denies family history of Ovarian cancer Prostate cancer Colorectal cancer Social History Smoking Status: Former smoker Tobacco Type: Cigarettes Second Hand Exposure: No; Do You Dip or Chew Tobacco: No; Hx Alcohol Use: Yes Alcohol type: wine Hx Substance Use: No Preferred Language: Nicaraguan Communication Ability: Effective Visual Impairment: No Limitations Hearing Ability: Normal Meat Trimmer Required: No Beliefs That Will Affect Care: None marital status: / Current Living Situation: Alone Current Living Situation Comment: son lives across the street current occupational status: retired Feels Safe at Home: Yes Dental Care, Regularly: Yes Physical Activity Frequency: Does not Exercise Seatbelt Use: always Assistive Devices: Cane and Walker Allergies Allergies Allergy/AdvReac Type Severity Reaction Status Date / Time No Known Drug Allergies Allergy Unknown . Verified 11/02/24 13:18 Home Meds Home Medications Medication Instructions Recorded Confirmed amlodipine 5 mg tablet 0 mg PO PM 09/19/24 11/20/24 hydroxychloroquine 200 mg tablet 200 mg PO PM 09/19/24 11/20/24 prednisone 5 mg tablet 5 mg PO PM 09/19/24 11/20/24 cyanocobalamin (vitamin B-12) 1,000 mcg PO HS 10/07/24 11/20/24 1,000 mcg tablet (Vitamin B-12) Previous Rx's Medication Instructions Recorded cholecalciferol (vitamin D3) 125 5,000 unit PO PM #90 caps 09/29/24 mcg (5,000 unit) capsule apixaban 5 mg tablet (Eliquis) 5 mg PO BID #60 tabs 10/15/24 amlodipine 2.5 mg tablet 2.5 mg PO PM #0 tabs 11/19/24 mirtazapine 7.5 mg tablet 7.5 mg PO HS #30 tabs 11/19/24 Results & Data (ED) Vital Signs Vital Signs - 24 hr 11/17/24 13:17 11/17/24 14:20 11/17/24 14:21 Temperature 36.3 C L Temperature Source Temporal Artery Scan Pulse Rate 105 H 110 H Pulse Rate [Apical] 110 H Respiratory Rate 20 24 Respiratory Effort / Characteristics Respiratory Depth Blood Pressure 87/64 L Blood Pressure [Right Arm] 142/99 H Blood Pressure Mean 71 Blood Pressure Mean [Right Arm] 113 Pulse Oximetry 100 91 91 Oxygen Delivery Method Room Air Room Air Room Air Sepsis Recent Fever Within 48 Hours No Sepsis New/Unexplained Change in Mental Status N/A Sepsis Action Taken by Nursing No Action Required 11/17/24 14:31 11/17/24 14:31 11/17/24 14:32 Temperature Temperature Source Pulse Rate 95 H Pulse Rate [Apical] Respiratory Rate Respiratory Effort / Characteristics SOB on Exertion Respiratory Depth Normal Blood Pressure Blood Pressure [Right Arm] Blood Pressure Mean Blood Pressure Mean [Right Arm] Pulse Oximetry 93 Oxygen Delivery Method Room Air Room Air Sepsis Recent Fever Within 48 Hours Sepsis New/Unexplained Change in Mental Status Sepsis Action Taken by [facility] Medications Current Medication List: was personally reviewed by me Laboratory Data Attestation: I reviewed the patient's lab results. 11/18/24 10:27 11/19/24 07:46 Lab Results 11/17/24 11/17/24 11/17/24 Range/Units 14:15 14:18 15:12 WBC 17.72 H (4.8-10.8) K/ul RBC 6.48 H (4.20-5.40) M/uL Hgb 17.4 H (12.0-16.0) g/dl Hct 55.2 H (37.0-47.0) % MCV 85.2 (80.0-100.0) fL MCH 26.9 (25.0-34.0) pg MCHC 31.5 L (32.0-36.0) g/dL RDW Std Deviation 49.6 H (36.4-46.3) fL RDW Coeff of Andrés 17.6 H (11.5-14.5) % Plt Count 318 (130-400) K/uL MPV 11.4 (9.4-12.4) fL Immature Gran % (Auto) 3.2 % Neut % (Auto) 78.7 % Lymph % (Auto) 11.0 % [place] % (Auto) 5.0 % Eos % (Auto) 1.5 % Baso % (Auto) 0.6 % Neut # (Auto) 13.96 H (1.40-6.50) K/uL Lymph # (Auto) 1.95 (1.20-3.40) K/uL [place] # (Auto) 0.89 H (0.11-0.59) K/uL Eos # (Auto) 0.26 (0.00-0.50) K/uL Baso # (Auto) 0.10 (0.00-0.20) K/uL Immature Gran # (Auto) 0.56 H (0.01-0.20) K/uL PT Cancelled 11.9 INR Cancelled 1.1 Sodium 147 H (136-145) mmol/L Potassium 3.2 L (3.5-5.1) mmol/L Chloride 106 (98-107) mmol/L Carbon Dioxide 28 (21-32) mmol/L Anion Gap 13 H (3-11) BUN 18 (6-23) mg/dl Creatinine 0.90 (0.6-1.2) mg/dl Est Cr Clr Drug Dosing 37.5 ml/min eGFR 63.43 BUN/Creatinine Ratio 20.0 (10-20) Glucose 183 H (70-99(Fasting)) mg/dl Calcium 10.0 (8.6-10.3) mg/dl Magnesium 1.9 (1.7-2.4) mg/dl Total Bilirubin 1.8 H (0.2-1.0) mg/dl AST 20 (13-39) U/L ALT 25 (7-52) U/L Alkaline Phosphatase 109 H (34-104) U/L Troponin I High Sens 62.2 H* (0-14) pg/ml Total Protein 6.7 (6.0-8.3) gm/dl Albumin 4.0 (3.4-5.0) gm/dl Globulin 2.7 (2.5-4.0) gm/dl Albumin/Globulin Ratio 1.5 (0.9-2) Adenovirus (PCR) Not Detected (NotDetected) B. pertussis DNA (PCR) Not Detected (NotDetected) B.parapertussis DNA PCR Not Detected (NotDetected) C. pneumoniae DNA (PCR) Not Detected (NotDetected) Coronavirus OC43 (PCR) Not Detected (NotDetected) Coronavirus HKU1 (PCR) Not Detected (NotDetected) Coronavirus 229E (PCR) Not Detected (NotDetected) SARS-CoV-2 (PCR) Not Detected (NotDetected) Coronavirus NL63 (PCR) Not Detected (NotDetected) Human Metapneumovir PCR Not Detected (NotDetected) Influenza Type A (PCR) Not Detected (NotDetected) Influenza Type B (PCR) Not Detected (NotDetected) M. pneumoniae (PCR) Not Detected (NotDetected) Parainfluenza 1 (PCR) Not Detected (NotDetected) Parainfluenza 2 (PCR) Not Detected (NotDetected) Parainfluenza 3 (PCR) Not Detected (NotDetected) Parainfluenza 4 (PCR) Not Detected (NotDetected) RSV (PCR) Not Detected (NotDetected) Entero/Rhino (PCR) Not Detected (NotDetected) 11/17/24 Range/Units 16:21 WBC (4.8-10.8) K/ul RBC (4.20-5.40) M/uL Hgb (12.0-16.0) g/dl Hct (37.0-47.0) % MCV (80.0-100.0) fL MCH (25.0-34.0) pg MCHC (32.0-36.0) g/dL RDW Std Deviation (36.4-46.3) fL RDW Coeff of Andrés (11.5-14.5) % Plt Count (130-400) K/uL MPV (9.4-12.4) fL Immature Gran % (Auto) % Neut % (Auto) % Lymph % (Auto) % [place] % (Auto) % Eos % (Auto) % Baso % (Auto) % Neut # (Auto) (1.40-6.50) K/uL Lymph # (Auto) (1.20-3.40) K/uL [place] # (Auto) (0.11-0.59) K/uL Eos # (Auto) (0.00-0.50) K/uL Baso # (Auto) (0.00-0.20) K/uL Immature Gran # (Auto) (0.01-0.20) K/uL PT INR Sodium (136-145) mmol/L Potassium (3.5-5.1) mmol/L Chloride (98-107) mmol/L Carbon Dioxide (21-32) mmol/L Anion Gap (3-11) BUN (6-23) mg/dl Creatinine (0.6-1.2) mg/dl Est Cr Clr Drug Dosing ml/min eGFR BUN/Creatinine Ratio (10-20) Glucose (70-99(Fasting)) mg/dl Calcium (8.6-10.3) mg/dl Magnesium (1.7-2.4) mg/dl Total Bilirubin (0.2-1.0) mg/dl AST (13-39) U/L ALT (7-52) U/L Alkaline Phosphatase (34-104) U/L Troponin I High Sens 57.9 H* (0-14) pg/ml Total Protein (6.0-8.3) gm/dl Albumin (3.4-5.0) gm/dl Globulin (2.5-4.0) gm/dl Albumin/Globulin Ratio (0.9-2) Adenovirus (PCR) (NotDetected) B. pertussis DNA (PCR) (NotDetected) B.parapertussis DNA PCR (NotDetected) C. pneumoniae DNA (PCR) (NotDetected) Coronavirus OC43 (PCR) (NotDetected) Coronavirus HKU1 (PCR) (NotDetected) Coronavirus 229E (PCR) (NotDetected) SARS-CoV-2 (PCR) (NotDetected) Coronavirus NL63 (PCR) (NotDetected) Human Metapneumovir PCR (NotDetected) Influenza Type A (PCR) (NotDetected) Influenza Type B (PCR) (NotDetected) M. pneumoniae (PCR) (NotDetected) Parainfluenza 1 (PCR) (NotDetected) Parainfluenza 2 (PCR) (NotDetected) Parainfluenza 3 (PCR) (NotDetected) Parainfluenza 4 (PCR) (NotDetected) RSV (PCR) (NotDetected) Entero/Rhino (PCR) (NotDetected) Administered Medications Discontinued Medications Amlodipine Besylate (Amlodipine Besylate 5 Mg Tab) 2.5 mg PO PM DHRUV Stop: 12/17/24 21:59 Last Admin: 11/17/24 22:30 Dose: 2.5 mg Documented By: KAVYA Apixaban (Apixaban 5 Mg Tablet) 5 mg PO BID DHRUV Stop: 12/17/24 21:59 Last Admin: 11/19/24 08:35 Dose: 5 mg Documented By: Admin: 11/18/24 21:32 Dose: 5 mg Documented By: Admin: 11/18/24 08:22 Dose: 5 mg Documented By: Admin: 11/17/24 22:29 Dose: 5 mg Documented By: KAVYA Cyanocobalamin (Cyanocobalamin (B-12) 500 Mcg Tablet) 1,000 mcg PO HS DHRUV Stop: 12/18/24 20:59 Last Admin: 11/18/24 21:33 Dose: 1,000 mcg Documented By: TERESA Famotidine (Famotidine 20 Mg Tab) 20 mg PO BID DHRUV Stop: 12/17/24 21:59 Last Admin: 11/19/24 08:35 Dose: 20 mg Documented By: Admin: 11/18/24 21:33 Dose: 20 mg Documented By: Admin: 11/18/24 08:22 Dose: 20 mg Documented By: Admin: 11/17/24 22:29 Dose: 20 mg Documented By: KAVYA Hydrocortisone Sodium Succinate (Hydrocortisone Sod Succinate 100 Mg/2 Ml Vial) 50 mg IV NOW STA Stop: 11/17/24 18:43 Last Admin: 11/17/24 19:47 Dose: 50 mg Documented By: ZHEN Hydroxychloroquine Sulfate (Hydroxychloroquine Sulfate 200 Mg Tab) 200 mg PO PM DHRUV Stop: 12/17/24 21:59 Last Admin: 11/18/24 21:35 Dose: 200 mg Documented By: Admin: 11/17/24 22:29 Dose: 200 mg Documented By: KAVYA Sodium Chloride (Nss) 1,000 mls @ 999 mls/hr IV .Q1H1M ONE Stop: 11/17/24 15:52 Last Infusion: 11/17/24 17:37 Dose: Infused Documented By: Admin: 11/17/24 14:56 Dose: 999 mls/hr Documented By: MEG Potassium Chloride/Sodium Chloride (1/2 Nss + 20meq Kcl 1000ml) 20 meq in 1,000 mls @ 100 mls/hr IV .Q10H DHRUV Stop: 11/18/24 18:44 Last Infusion: 11/19/24 02:01 Dose: Infused Documented By: Admin: 11/18/24 15:47 Dose: 100 mls/hr Documented By: Infusion: 11/18/24 15:28 Dose: Infused Documented By: Admin: 11/18/24 05:28 Dose: 100 mls/hr Documented By: Infusion: 11/18/24 05:28 Dose: Infused Documented By: Admin: 11/17/24 19:47 Dose: 100 mls/hr Documented By: ZHEN Hydrocortisone Sodium (Succinate 50 mg/ Syringe) 1 mls @ 4 mls/min IV Q8H DHRUV Stop: 12/18/24 03:59 Last Admin: 11/18/24 11:57 Dose: 4 mls/min Documented By: Admin: 11/18/24 04:00 Dose: 4 mls/min Documented By: KAVYA Magnesium Sulfate/Dextrose (Magnesium Sulfate / D5w) 1 gm in 100 mls @ 50 mls/hr IV 1000 ONE Stop: 11/19/24 11:59 Last Infusion: 11/19/24 11:49 Dose: Infused Documented By: Admin: 11/19/24 10:06 Dose: 50 mls/hr Documented By: OSCAR Mirtazapine (Mirtazapine Tab 15 Mg Tab) 7.5 mg PO HS DHRUV Stop: 12/17/24 21:59 Last Admin: 11/18/24 21:33 Dose: 7.5 mg Documented By: Admin: 11/17/24 22:31 Dose: 7.5 mg Documented By: KAVYA Ondansetron HCl (Ondansetron Inj 2 Mg/Ml 2 Ml Vial) 4 mg IV NOW STA Stop: 11/17/24 14:53 Last Admin: 11/17/24 14:56 Dose: 4 mg Documented By: MEG Prednisone (Prednisone 5 Mg Tab) 5 mg PO PM DHRUV Stop: 12/18/24 20:59 Last Admin: 11/18/24 21:34 Dose: 5 mg Documented By: TERESA Quetiapine Fumarate (Quetiapine Fumarate 25 Mg Tablet) 12.5 mg PO HS DHRUV Stop: 12/17/24 21:59 Last Admin: 11/18/24 21:34 Dose: 12.5 mg Documented By: Admin: 11/17/24 22:29 Dose: 12.5 mg Documented By: KAVYA Vitamin D (Cholecalciferol 125 Mcg (5,000 Units) Tab) 125 mcg PO PM DHRUV Stop: 12/18/24 20:59 Last Admin: 11/18/24 21:32 Dose: 125 mcg Documented By: TERESA Imaging Data Radiologist's Impression: Chest X-Ray 11/17/24 14:29 XR chest 1V portable CLINICAL HISTORY: SOB COMPARISON STUDY: 11/02/2024 FINDINGS: Heart size and pulmonary vasculature are normal. No effusion, consolidation, or pneumothorax. IMPRESSION: No acute findings. ACT 112: Negative or not required by law. Electronically signed by: Ishmael Esparza M.D. 11/17/2024 3:02 PM Discharge Plan Visit Data Chief Complaint: Shortness of Breath/Dyspnea Stated Complaint: INCONTIANT, DIAPER RASH, SOB ED Provider: Derek Gardner Discharge Problem: Elevated troponin, Nausea vomiting and diarrhea, Acute dehydration, Generalized weakness Patient Disposition: Admitted As Inpatient Discharge Instructions Interventions: ED Discharge Assessment Last Done: 11/17/24 22:10
[2024-11-17 14:41] LABS: Basophils % (auto) 0.6 %; Eosinophils # (auto) 0.26 K/uL (0.00-0.50); Eosinophils % (auto) 1.5 %; Hematocrit (blood only) 55.2 % (37.0-47.0); Hemoglobin 17.4 g/dl (12.0-16.0); Immature Granulocytes # (auto) 0.56 K/uL (0.01-0.20); Immature Granulocytes % (auto) 3.2 %; Lymphocytes # (auto) 1.95 K/uL (1.20-3.40); Mean Platelet Volume 11.4 fL (9.4-12.4); Monocytes # (auto) 0.89 K/uL (0.11-0.59); Neutrophils # (auto) 13.96 K/uL (1.40-6.50); Neutrophils % (auto) 78.7 %; Platelet Count 318 K/uL (130-400); White Blood Count 17.72 K/ul (4.8-10.8)
[2024-11-17] MEDS: ONDANSETRON INJ 2 MG/ML 2 ML VIAL IV STA (14:56)
[2024-11-17] MEDS: SODIUM CHLORIDE 0.9% 1,000 ML IV ONE (14:56)
[2024-11-17 14:59] LABS: Albumin Globulin Ratio 1.5 (0.9-2); Bilirubin,Total 1.8 mg/dl (0.2-1.0); Creatinine Clr Calc Pharmacy 37.5 ml/min; Globulin 2.7 gm/dl (2.5-4.0); Magnesium 1.9 mg/dl (1.7-2.4); Potassium 3.2 mmol/L (3.5-5.1); Total Protein 6.7 gm/dl (6.0-8.3)
[2024-11-17 15:02] LABS: Mean Corpuscular Hemoglobin 26.9 pg (25.0-34.0); Mean Corpuscular Hgb Conc 31.5 g/dL (32.0-36.0); Mean Corpuscular Volume 85.2 fL (80.0-100.0); RDW Coefficient of Variation 17.6 % (11.5-14.5); RDW Standard Deviation 49.6 fL (36.4-46.3); Red Blood Count 6.48 M/uL (4.20-5.40)
--- NOTE | 2024-11-17 15:03 | XRay Report ---
XR chest 1V portable CLINICAL HISTORY: SOB COMPARISON STUDY: 11/02/2024 FINDINGS: Heart size and pulmonary vasculature are normal. No effusion, consolidation, or pneumothora x. IMPRESSION: No acute findings. ACT 112: Negative or not required by law. Electronically signed by: Ishmael Esparza M.D. 11/17/2024 3:02 PM
[2024-11-17 15:07] LABS: Troponin I High Sensitivity 62.2 pg/ml (0-14)
[2024-11-17 15:52] LABS: Adenovirus PCR Not Detected (NotDetected); Bordetella parapertussis PCR Not Detected (NotDetected); Bordetella pertussis PCR Not Detected (NotDetected); Chlamydia pneumoniae PCR Not Detected (NotDetected); Coronavirus 229E PCR Not Detected (NotDetected); Coronavirus CoV-2 (COVID19)PCR Not Detected (NotDetected); Coronavirus HKU1 PCR Not Detected (NotDetected); Coronavirus NL63 PCR Not Detected (NotDetected); Coronavirus OC43PCR Not Detected (NotDetected); Human Metapneumovirus PCR Not Detected (NotDetected); Influenza A PCR Not Detected (NotDetected); Influenza B PCR Not Detected (NotDetected); Mycoplasma pneumoniae PCR Not Detected (NotDetected); Parainfluenza Virus 1 PCR Not Detected (NotDetected); Parainfluenza Virus 2 PCR Not Detected (NotDetected); Parainfluenza Virus 3 PCR Not Detected (NotDetected); Parainfluenza Virus 4 PCR Not Detected (NotDetected); Respiratory Syncytial VirusPCR Not Detected (NotDetected); Rhinovirus/Enterovirus PCR Not Detected (NotDetected)
[2024-11-17 16:04] LABS: INR 1.1 (0.9-1.1); Prothrombin Time 11.9 Seconds (9.0-12.0)
--- NOTE | 2024-11-17 16:54 | Electrocardiogram Report ---
Test Reason : Blood Pressure : */* mmHG Vent. Rate : 96 BPM Atrial Rate : 96 BPM P-R Int : 160 ms QRS Dur : 90 ms QT Int : 392 ms P-R-T Axes : 6 -56 73 degrees QTcB Int : 495 ms Sinus rhythm with occasional Premature ventricular complexes and Premature atrial complexes Left axis deviation Moderate voltage criteria for LVH, may be normal variant Poor R wave progression, consider anterior MO vs. lead placement vs. LVH Prolonged QT Abnormal ECG When compared with ECG of 07-Oct-2024 15:57, Premature atrial complexes are now Present Left posterior fascicular block is no longer Present T wave inversion no longer evident in Inferior leads Confirmed by Robson Rice ([id number] on 11/17/2024 4:53:57 PM Referred By: Confirmed By: Robson Rice
[2024-11-17 17:22] LABS: Appearance Urine Turbid (Clear); Bacteria Urine Automated None Seen (None Seen); Bilirubin Urine Negative (Negative); Blood Urine Negative (Negative); Calcium Oxalate Crystals Urine Present (None Prsent); Cast Urine Automated >20 /lpf (0-2); Color Urine Dark Yellow; Epithelial Cell Urine Auto 0-2 /hpf (0-2); Glucose Urine UA Negative (Negative); Ketones Urine Negative (Negative); Leukocyte Esterase Urine Trace (Negative); Nitrite Urine Negative (Negative); Protein Urine 1+ (Negative); Specific Gravity Urine 1.018 (1.000-1.030); Urobilinogen Urine Negative (Negative); WBC Urine Automated 0-5 /hpf (0-5); pH Urine 5.5 (4.5-7.5)
--- NOTE | 2024-11-17 18:40 | History & Physical Report ---
Date of Service November 17, 2024 Assessment & Plan (1) Nausea, vomiting, and diarrhea: Plan: patient presents with signs of dehydration in the setting of severe diarrhea, intermittent nausea/vomiting, and a prior respiratory illness she had had in late September/early October surprisingly her respiratory BioFire is completely negative AND stool BioFire testing is also negative c diff tesing is negative at minimum she likely has antibiotic-associated diarrhea from the recent 7 day courses of Augmentin/doxycycline her labs are c/w hypernatremic dehydration will provide hypotonic fluids and stress dose steroids with hydrocortisone repeat labs in am add pepcid 20mg BID for dyspepsia zofran prn (2) Lower respiratory tract infection: Plan: had a respiratory illness in late September/early October while rehabbing at local SNF COVID testing was negative at that time, and full Biofire resp panel today here is negative CXR is clear mild L basilar rales but no signs/symptoms of a lingering pneumonia process treated recently with augmetin/doxycycline x 7 days each defer on additional abx at this time she has stable O2 sats in room air (3) Acute deep vein thrombosis of both lower extremities: Plan: hospitalized in September 2024 at [facility] for extensive b/l LE DVTs (nearly the entire venous system) with extension of clot into the iliacs and IVC seen by vascular surgery - no filter recommended, no direct thrombolysis advised CTA chest negative for PEs amazingly has been on Eliquis since then should be on Eliquis life-long reason for clotting event ?? underlying occult malignancy? rheumatoid arthritis (proinflammatory state)? immobility? with advanced age, cognitive impairment, etc would not pursue large work up unless family desired such (4) Hypokalemia: Plan: replace repeat BMP am 2nd diarrhea and poor oral intake (5) Hypernatremia: Plan: hypotonic fluids repeat BMP am (6) Cognitive impairment: Plan: pt's son reports baseline cognitive impairment during her stay in September she had superimposed hospital delirium records indicate she needed seroquel at that time and tolerated the med QTc is mildly prolonged but still <500msec will cautiously start seroquel 12.5mg at HS plan to recheck EKG once low K is replaced to ensure QTc is stable (7) Rheumatoid arthritis: Plan: patient is on chronic prednisone therapy 5mg/day as well as plaquenil 200mg daily will offer stress dose steroids in light of recent illness and her presentation hold prednisone; give hydrocortisone 50mg now followed by 50mg q8h IV no obvious RA flare at this time (8) Hypertension: Plan: BPs are low-normal in the face of dehydration she is on amlodipine 7.5mg HS will only give 2.5mg of amlodipine at this time follow BPs Plan DVT proph - Eliquis twice daily son updated at bedside will need PT/OT History of Present Illness Chief Complaint: weakness, vomiting, severe diarrhea, stomach upset Primary Care Provider: Eliel Lynn MD 84yo female with history of dementia, extensive bilateral LE DVT requiring hospitalization 09/2024, HTN, and steroid-dependent rheumatoid arthritis presents from home due to severe diarrhea, poor PO intake, stomach upset, a few episodes of vomiting (including today in the ER), as well as shortness of breath. Patient was hospitalized from 10/07 to 10/15 at [facility] for extensive b/l LE DVTs extending into the IVC. Seen by vascular surgery during that admission - IVC filter not recommended. Following that stay she went to rehab at local SNF. She apparently developed a respiratory illness in late September 2024 and was discharged to home during the first week of October. Her cough/congestion continued upon transition home and thus on 11/02 she was called in scripts for augmentin & doxycycline to treat for possible lower respiratory infection. Her cough did improve with such. Around the same time her son became sick with URI symptoms. Then, over the last week, she became quite weak, her appetite dropped off, she developed prolific diarrhea, and had nausea/vomiting at times. No fever. Allergies Allergy/AdvReac Type Severity Reaction Status Date / Time No Known Drug Allergies Allergy Unknown . Verified 11/02/24 13:18 Home Medications Medication Instructions Recorded Confirmed Type amlodipine 2.5 mg tablet 2.5 mg PO PM 09/19/24 11/17/24 History amlodipine 5 mg tablet 5 mg PO PM 09/19/24 11/17/24 History hydroxychloroquine 200 mg tablet 200 mg PO PM 09/19/24 11/17/24 History prednisone 5 mg tablet 5 mg PO PM 09/19/24 11/17/24 History cholecalciferol (vitamin D3) 125 5,000 unit PO PM #90 caps 09/29/24 11/17/24 Rx mcg (5,000 unit) capsule mirtazapine 7.5 mg tablet 7.5 mg PO DAILY #30 tabs 09/29/24 11/17/24 Rx cyanocobalamin (vitamin B-12) 1,000 mcg PO HS 10/07/24 11/17/24 History 1,000 mcg tablet (Vitamin B-12) apixaban 5 mg tablet (Eliquis) 5 mg PO BID #60 tabs 10/15/24 11/17/24 Rx Past Med/Surg History Problem List (Updated 11/18/24 @ 07:52 by Sebastian Mondragon MD) Hypertension Hypernatremia Lower respiratory tract infection Nausea, vomiting, and diarrhea Gait disturbance Weakness (Acute) Hypokalemia Hypomagnesemia Sepsis Elevated troponin I level (Acute) Greater trochanteric pain syndrome Osteopenia (Acute) Left hip pain (Acute) Hyperglycemia (Acute) Greater trochanteric bursitis (Acute) Forgetfulness (Acute) Irregular heart rate Elevated hemoglobin Medical History (Updated 11/18/24 @ 07:52 by Sebastian Mondragon MD) Cognitive impairment Acute deep vein thrombosis of both lower extremities 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 Vitamin B12 deficiency Multiple thyroid nodules Osteoporosis Rheumatoid arthritis SNHL (sensorineural hearing loss) Secondary hyperparathyroidism Vitamin D deficiency disease Aortic arch atherosclerosis Current chronic use of systemic steroids Elevated lactic acid level UTI (urinary tract infection) MGUS (monoclonal gammopathy of unknown significance) Surgical History S/P tubal ligation S/P tonsillectomy Family History Father Congestive heart failure Myocardial infarction Other Breast cancer Denies family history of Ovarian cancer Prostate cancer Colorectal cancer Social History (Updated 11/18/24 @ 07:36 by Sebastian Mondragon MD) Smoking Status: Former smoker Tobacco Type: Cigarettes Second Hand Exposure: No; Do You Dip or Chew Tobacco: No; Hx Alcohol Use: Yes Alcohol type: wine Hx Substance Use: No Preferred Language: Polish Communication Ability: Effective Visual Impairment: No Limitations Hearing Ability: Normal [employer] Required: No Beliefs That Will Affect Care: None marital status: / Current Living Situation: Alone Current Living Situation Comment: son lives across the street current occupational status: retired Feels Safe at Home: Yes Dental Care, Regularly: Yes Physical Activity Frequency: Does not Exercise Seatbelt Use: always Assistive Devices: Glasses and Walker Review of Systems Review of Systems: Unobtainable due to cognitive status per son - no recent complaints of pain except for "stomach ache" Physical Exam Physical Exam: gen - COURTNEY, looks tired, looks weak; she looks constantly at her son for him to provide answers & information eyes - PERRL mouth - MM dry neck - no JVD heart - RRR, s1 s2, 1/6 systolic murmur upper sternal border lungs - mild fine dry sounding rales L lower base; otherwise CTA b/l; no wheeze abd - soft NT ND BS+; no HSM ext - no edema, pulses feet 2+ b/l skin - scattered ecchymoses on lower legs; no generalized rash neuro - strength 5/5 x 4 exts psych - oriented to person only musculo - deformities of fingers, toes, other joints from RA Results & Data Results & Data Vital Signs (Past 12 Hours) Vital Signs Temp Pulse Pulse Resp BP BP Pulse Ox 11/17/24 18:24 85 11/17/24 17:30 19 132/74 94 11/17/24 17:00 87 14 121/73 97 11/17/24 16:30 135/84 11/17/24 16:00 88 20 133/84 93 11/17/24 15:30 88 132/91 96 11/17/24 15:00 88 18 122/78 94 11/17/24 14:32 93 11/17/24 14:31 95 H 11/17/24 14:31 11/17/24 14:30 99 H 19 122/89 11/17/24 14:21 110 H 24 142/99 H 91 11/17/24 14:20 110 H 91 11/17/24 13:17 36.3 C L 105 H 20 87/64 L 100 O2 Del Method 11/17/24 18:24 11/17/24 17:30 11/17/24 17:00 11/17/24 16:30 11/17/24 16:00 11/17/24 15:30 11/17/24 15:00 11/17/24 14:32 Room Air 11/17/24 14:31 11/17/24 14:31 Room Air 11/17/24 14:30 11/17/24 14:21 Room Air 11/17/24 14:20 Room Air 11/17/24 13:17 Room Air Laboratory Results Laboratory Results - last 24 hr 11/17/24 11/17/24 11/17/24 14:15 14:18 15:12 WBC 17.72 H RBC 6.48 H Hgb 17.4 H Hct 55.2 H MCV 85.2 MCH 26.9 MCHC 31.5 L RDW Std Deviation 49.6 H RDW Coeff of Andrés 17.6 H Plt Count 318 MPV 11.4 Immature Gran % (Auto) 3.2 Neut % (Auto) 78.7 Lymph % (Auto) 11.0 [place] % (Auto) 5.0 Eos % (Auto) 1.5 Baso % (Auto) 0.6 Neut # (Auto) 13.96 H Lymph # (Auto) 1.95 [place] # (Auto) 0.89 H Eos # (Auto) 0.26 Baso # (Auto) 0.10 Immature Gran # (Auto) 0.56 H PT Cancelled 11.9 INR Cancelled 1.1 Sodium 147 H Potassium 3.2 L Chloride 106 Carbon Dioxide 28 Anion Gap 13 H BUN 18 Creatinine 0.90 Est Cr Clr Drug Dosing 37.5 eGFR 63.43 BUN/Creatinine Ratio 20.0 Glucose 183 H Calcium 10.0 Magnesium 1.9 Total Bilirubin 1.8 H AST 20 ALT 25 Alkaline Phosphatase 109 H Troponin I High Sens 62.2 H* Total Protein 6.7 Albumin 4.0 Globulin 2.7 Albumin/Globulin Ratio 1.5 Urine Color Urine Appearance Urine pH Ur Specific [place] Urine Protein Urine Glucose (UA) Urine Ketones Urine Blood Urine Nitrite Urine Bilirubin Urine Urobilinogen Ur Leukocyte Esterase Urine WBC (Auto) Urine RBC (Auto) U Hyaline Cast (Auto) U Epithel Cells (Auto) Urine Bacteria (Auto) Calcium Oxalate Crystal Stl C. cayetanensis PCR Stool Rotavirus A PCR Stl Adenov F 40/41 PCR Stool Astrovirus (PCR) Stool Campylobacter PCR Stl C. diff Tox B Gene Stool Cryptosporidium PCR Stl E.coli Shiga Tox PCR Stl Enterotoxigenic E PCR Stool EPEC (PCR) Stool EAEC (PCR) Stl E. histolytica PCR Stool Giardia Lamblia PCR Stool Salmonella PCR Stool Sapovirus (PCR) Stl P. shigelloides PCR Stl Shigella/EIEC PCR St Y.enterocolitica PCR Stool Vibrio (PCR) Stl Vibrio cholerae PCR Stl Norovirus GI/GII PCR Adenovirus (PCR) Not Detected B. pertussis DNA (PCR) Not Detected B.parapertussis DNA PCR Not Detected C. pneumoniae DNA (PCR) Not Detected Coronavirus OC43 (PCR) Not Detected Coronavirus HKU1 (PCR) Not Detected Coronavirus 229E (PCR) Not Detected SARS-CoV-2 (PCR) Not Detected Coronavirus NL63 (PCR) Not Detected Human Metapneumovir PCR Not Detected Influenza Type A (PCR) Not Detected Influenza Type B (PCR) Not Detected M. pneumoniae (PCR) Not Detected Parainfluenza 1 (PCR) Not Detected Parainfluenza 2 (PCR) Not Detected Parainfluenza 3 (PCR) Not Detected Parainfluenza 4 (PCR) Not Detected RSV (PCR) Not Detected Entero/Rhino (PCR) Not Detected 11/17/24 11/17/24 11/17/24 16:21 19:40 Unknown WBC RBC Hgb Hct MCV MCH MCHC RDW Std Deviation RDW Coeff of Andrés Plt Count MPV Immature Gran % (Auto) Neut % (Auto) Lymph % (Auto) [place] % (Auto) Eos % (Auto) Baso % (Auto) Neut # (Auto) Lymph # (Auto) [place] # (Auto) Eos # (Auto) Baso # (Auto) Immature Gran # (Auto) PT INR Sodium Potassium Chloride Carbon Dioxide Anion Gap BUN Creatinine Est Cr Clr Drug Dosing eGFR BUN/Creatinine Ratio Glucose Calcium Magnesium Total Bilirubin AST ALT Alkaline Phosphatase Troponin I High Sens 57.9 H* Total Protein Albumin Globulin Albumin/Globulin Ratio Urine Color Dark Yellow Urine Appearance Turbid A Urine pH 5.5 Ur [address] [place] 1.018 Urine Protein 1+ H Urine Glucose (UA) Negative Urine Ketones Negative Urine Blood Negative Urine Nitrite Negative Urine Bilirubin Negative Urine Urobilinogen Negative Ur Leukocyte Esterase Trace H Urine WBC (Auto) 0-5 Urine RBC (Auto) 6-10 H U Hyaline Cast (Auto) >20 H U Epithel Cells (Auto) 0-2 Urine Bacteria (Auto) None Seen Calcium Oxalate Crystal Present A Stl C. cayetanensis PCR Not Detected Stool Rotavirus A PCR Not Detected Stl Adenov F 40/41 PCR Not Detected Stool Astrovirus (PCR) Not Detected Stool Campylobacter PCR Not Detected Stl C. diff Tox B Gene Negative Cdiff Gene Stool Cryptosporidium PCR Not Detected Stl E.coli Shiga Tox PCR Not Detected Stl Enterotoxigenic E PCR Not Detected Stool EPEC (PCR) Not Detected Stool EAEC (PCR) Not Detected Stl E. histolytica PCR Not Detected Stool Giardia [place] PCR Not Detected Stool Salmonella PCR Not Detected Stool Sapovirus (PCR) Not Detected Stl P. shigelloides PCR Not Detected Stl Shigella/EIEC PCR Not Detected St Y.enterocolitica PCR Not Detected Stool Vibrio (PCR) Not Detected Stl Vibrio cholerae PCR Not Detected Stl Norovirus GI/GII PCR Not Detected Adenovirus (PCR) B. pertussis DNA (PCR) B.parapertussis DNA PCR C. pneumoniae DNA (PCR) Coronavirus OC43 (PCR) Coronavirus HKU1 (PCR) Coronavirus 229E (PCR) SARS-CoV-2 (PCR) Coronavirus NL63 (PCR) Human Metapneumovir PCR Influenza Type A (PCR) Influenza Type B (PCR) M. pneumoniae (PCR) Parainfluenza 1 (PCR) Parainfluenza 2 (PCR) Parainfluenza 3 (PCR) Parainfluenza 4 (PCR) RSV (PCR) Entero/Rhino (PCR) Diagnostic Findings Chest X-Ray 11/17/24 14:29 XR chest 1V portable CLINICAL HISTORY: SOB COMPARISON STUDY: 11/02/2024 FINDINGS: Heart size and pulmonary vasculature are normal. No effusion, consolidation, or pneumothorax. IMPRESSION: No acute findings. ACT 112: Negative or not required by law. Electronically signed by: Ishmael Esparza M.D. 11/17/2024 3:02 PM EKG - NSR, PVC, LVH by voltage criteria, minimally prolonged QTc, no ST changes Code Status & VTE Plan Code Status full code per son PG Care Time/CCT Total # of Minutes Spent Total Time Spent with Patient: Total time spent is greater than 50% in coordination of care (as documented) at patient's floor/unit and/or counseling patient: Coding Level of Care Code 84398 INT INP/OBS CARE 3/75MIN Diagnoses Nausea, vomiting, and diarrhea R11.2; R19.7 Lower respiratory tract infection J22 Acute deep vein thrombosis of both lower extremities I82.403 Hypokalemia E87.6 Hypernatremia E87.0 Cognitive impairment R41.89 Rheumatoid arthritis M06.9 Hypertension I10
[2024-11-17] MEDS: SODIUM CHLOR 0.45% + 20MEQ KCL 20 MEQ/1,000 ML BAG IV SCH (19:47)
[2024-11-17] MEDS: HYDROCORTISONE SOD SUCCINATE 100 MG/2 ML VIAL IV STA (19:47)
[2024-11-17 21:07] LABS: Adenovirus F 40/41 PCR Not Detected (NotDetected); Astrovirus PCR Not Detected (NotDetected); Campylobacter PCR Not Detected (NotDetected); Cryptosporidium PCR Not Detected (NotDetected); Cyclospora cayetanensis PCR Not Detected (NotDetected); Entamoeba histolytica PCR Not Detected (NotDetected); Enteroaggregative E.coli(EAEC) Not Detected (NotDetected); Enteropathogenic E.coli (EPEC) Not Detected (NotDetected); Enterotoxigenic E.coli (ETEC) Not Detected (NotDetected); Giardia lamblia PCR Not Detected (NotDetected); Norovirus GI/GII PCR Not Detected (NotDetected); Plesiomonas shigelloides PCR Not Detected (NotDetected); Rotavirus A PCR Not Detected (NotDetected); Salmonella PCR Not Detected (NotDetected); Sapovirus PCR Not Detected (NotDetected); Shiga-like Toxin E.coli (STEC) Not Detected (NotDetected); Shigella/Enteroinvasive E.coli Not Detected (NotDetected); Vibrio cholerae PCR Not Detected (NotDetected); Vibrio species PCR Not Detected (NotDetected); Yersinia enterocolitica PCR Not Detected (NotDetected)
[2024-11-17] MEDS ORDERED: ONDANSETRON INJ 2 MG/ML 2 ML VIAL IV PRN (21:52)
[2024-11-17] MEDS: QUEtiapine FUMARATE 25 MG TABLET PO SCH (22:29)
[2024-11-17] MEDS: APIXABAN 5 MG TABLET PO SCH (22:29)
[2024-11-17] MEDS: FAMOTIDINE 20 MG TAB PO SCH (22:29)
[2024-11-17] MEDS: HYDROXYCHLOROQUINE SULFATE 200 MG TAB PO SCH (22:29)
[2024-11-17] MEDS: amLODIPine BESYLATE 5 MG TAB PO SCH (22:30)
[2024-11-17] MEDS: MIRTAZAPINE TAB 15 MG TAB PO SCH (22:31)
[2024-11-18] MEDS ORDERED: HYDROCORTISONE SOD SUCCINATE 100 MG/2 ML VIAL IV SCH (04:00)
[2024-11-18] MEDS: HYDROCORTISONE SOD 50 MG in SYRINGE 0 ML IV SCH (04:00)
[2024-11-18 11:08] LABS: BUN Creatinine Ratio 23.3 (10-20); Calcium 7.5 mg/dl (8.6-10.3); Creatinine Clr Calc Pharmacy 53.6 ml/min; Potassium 3.4 mmol/L (3.5-5.1)
[2024-11-18 11:13] LABS: Hematocrit (blood only) 37.7 % (37.0-47.0); Hemoglobin 12.4 g/dl (12.0-16.0); Mean Corpuscular Hemoglobin 27.7 pg (25.0-34.0); Mean Corpuscular Hgb Conc 32.9 g/dL (32.0-36.0); Mean Corpuscular Volume 84.2 fL (80.0-100.0); Mean Platelet Volume 11.9 fL (9.4-12.4); Platelet Count 211 K/uL (130-400); RDW Standard Deviation 49.2 fL (36.4-46.3); Red Blood Count 4.48 M/uL (4.20-5.40); White Blood Count 13.91 K/ul (4.8-10.8)
--- NOTE | 2024-11-18 18:50 | Hospitalist Progress Note ---
Date of Service November 18, 2024 Assessment & Plan (1) Nausea, vomiting, and diarrhea: Plan: 84-year-old woman admitted with acute gastroenteritis and resultant dehydration and electrolyte depletion. she had a recent respiratory illness with antibiotics late September/early October. On admission respiratory and stool bio fire negative and C. difficile toxin negative. Her son also had a gastrointestinal intestinal illness with onset after hers diarrhea resolving and this was likely a viral gastroenteritis. oral intake improving - probiotic - hypokalemia now mild at 3.1, replacing and IV fluids throughout today. hypernatremia resolved. - A.m. BMP and magnesium we will stop stress dose steroids and resume her prednisone 5 mg at bedtime provided she is hydrating well and maintaining her electrolytes she will be safe for discharge tomorrow morning (2) Lower respiratory tract infection: Plan: had a respiratory illness in late September/early October while rehabbing at local SNF COVID testing was negative at that time, and full Biofire resp panel today here is negative CXR is clear mild L basilar rales but no signs/symptoms of a lingering pneumonia process treated recently with augmetin/doxycycline x 7 days each not requiring supplemental oxygen appears to have resolved (3) Acute deep vein thrombosis of both lower extremities: Plan: hospitalized in September 2024 at [facility] for extensive b/l LE DVTs (nearly the entire venous system) with extension of clot into the iliacs and IVC seen by vascular surgery - no filter recommended, no direct thrombolysis advised CTA chest negative for PEs continue apixaban lifelong for extensive clot unclear what provoked this however she may have had immobility and potentially dehydration with her preceding respiratory illness, she may have prolonged inflammatory state with her underlying rheumatoid arthritis occult malignancy is a possibility as or other causes of thrombophilia with advanced age, cognitive impairment, etc would not pursue large work up unless family desired such (4) Hypokalemia: Plan: 2nd diarrhea and poor oral intake see above (5) Hypernatremia: Plan: treated with hypotonic fluids and resolved (6) Cognitive impairment: Plan: pt's son reports baseline cognitive impairment during her stay in September she had superimposed hospital delirium records indicate she needed seroquel at that time and tolerated the med QTc is mildly prolonged but still <500msec on Seroquel 12.5 mg at bedtime unlikely to continue this on discharge (7) Rheumatoid arthritis: Plan: patient is on chronic prednisone therapy 5mg/day as well as plaquenil 200mg daily - continue no RA flare at this time (8) Hypertension: Plan: amlodipine held because of mild hypotension in setting of dehydration Plan DVT proph - Eliquis twice daily I updated her son at bedside 11/18 PT/OT recommended 24-hour support/ supervision and home health PT/OT. she refuses further rehab Admission and Anticipated Discharge Date Admission Date: November 17, 2024 Subjective Feels much better, diarrhea resolving mild at this time Started eating and drinking better. Had turkey something Physical Exam 2 Physical Exam: PHYSICAL EXAMINATION Last 24h vital signs reviewed, see documentation in flowsheet General: comfortable appearing, no distress, sitting up in bed HEENT: Normocephalic, atraumatic, pupils round and equal, sclerae anicteric, no conjunctival injection, moist mucus membranes Lungs: Normal respiratory effort. Clear to auscultation bilaterally. No RRW Heart: Regular rate and rhythm, no murmurs. No JVD Abdomen: Soft, nontender, nondistended. Bowel sounds present. Extremities: Warm, dry, well-perfused. No extremity edema. Neuro: Alert and oriented x hospital and situation though gives some vague answers, face symmetric, moves 4 extremities well Psych: Normal affect and behavior Results & Data Results & Data Vital Signs (Past 12 Hours) Vital Signs Temp Pulse Pulse Resp BP Pulse Ox O2 Del Method 11/18/24 16:04 97.3 F L 78 16 100/64 93 Room Air 11/18/24 15:49 87 11/18/24 11:53 97.2 F L 84 16 98/63 L 95 Room Air 11/18/24 09:13 Room Air 11/18/24 07:48 98.2 F 75 20 100/55 L 93 Room Air 11/18/24 07:41 74 Laboratory Results 11/18/24 10:27 11/18/24 10:27 PG Care Time/CCT Total # of Minutes Spent Total Time Spent with Patient: Total time spent is greater than 50% in coordination of care (as documented) at patient's floor/unit and/or counseling patient: Coding Level of Care Code 64245 SUB INP/OBS CARE 2/35MIN Diagnoses Nausea, vomiting, and diarrhea R11.2; R19.7 Lower respiratory tract infection J22 Acute deep vein thrombosis of both lower extremities I82.403 Hypokalemia E87.6 Hypernatremia E87.0 Cognitive impairment R41.89 Rheumatoid arthritis M06.9 Hypertension I10
[2024-11-18 19:51] VITALS: RESP 18
[2024-11-18] MEDS: CHOLECALCIFEROL 125 MCG (5,000 UNITS) TAB PO SCH (21:32)
[2024-11-18] MEDS: CYANOCOBALAMIN (B-12) 500 MCG TABLET PO SCH (21:33)
[2024-11-18] MEDS: predniSONE 5 MG TAB PO SCH (21:34)
[2024-11-19 07:45] VITALS: TEMP 97.3
[2024-11-19 08:49] LABS: BUN Creatinine Ratio 19.1 (10-20); Calcium 8.9 mg/dl (8.6-10.3); Creatinine Clr Calc Pharmacy 47.3 ml/min; Magnesium 1.6 mg/dl (1.7-2.4); Potassium 3.5 mmol/L (3.5-5.1)
[2024-11-19] MEDS: MAGNESIUM SULFATE / D5W 1 GM/100 ML BAG IV ONE (10:06)
[2024-11-19 11:30] VITALS: BP 108/70; PULSE 79; O2SAT 95
== END 2024-11-19 15:50 | disposition home health service (06) | DRG 394 ==
LOC: ED 13:10 → SUATTDRO 18:52 → 2W 18:52

== ENCOUNTER 2024-11-20 07:47 | Inpatient (IN) ==
--- NOTE | 2024-11-20 08:07 | Emergency Department Note ---
Impression & Plan Acute UTI, Hypomagnesemia, Hypokalemia, Cognitive impairment, Encephalopathy acute, Hypophosphatemia, Elevated troponin ED Provider Note NAME: TAMIKO SALGADO AGE: 84 SEX: F : 1940 ARRIVES VIA: Ambulance INFORMANT: Patient ED PROVIDER(S): Basilio Moreno MD CHIEF COMPLAINT: Confusion. PLAN: Disposition: Admit MEDICAL DECISION MAKING: The patient is a pleasant 84-year-old woman with a past medical history of hypertension, hyperlipidemia, carotid artery stenosis, rheumatoid arthritis, history of DVT on Eliquis, cognitive impairment who presents to the Emergency Department via EMS coming by her son for evaluation of confusion which is ongoing since yesterday after the patient was discharged from this facility following admission from 07/18-11/18 for symptoms of gastroenteritis with associated dehydration. Patient's son reports that she was acting normally when he picked her up but on the way home started to say things that do not make sense not recognizing where they were despite going to her home and asking about for members which have been long since . He reports that she has had episodes like this in the past surrounding hospitalizations and so thought he would give it time to improve but this morning continued to be confused. Of note, EMS did report to case management concern for the patient's living conditions where she lives in the upstairs of her home with her son who has Parkinson's. A report to the office of aging is being filed by EMS. On evaluation the patient is no acute distress, afebrile stable vital signs. She appears clinically dry. She exhibits confusion to place and situation. When asked where she is at this time she replies that she is [place] When prompted to help improve her orientation asking if medical equipment is in the [place] she replies "I do not know I do not go there often". Otherwise she is moving all extremities equally without focal neurologic deficit. EKG without overt acute ischemia. CXR negative for acute cardiopulmonary process per my personal preliminary review/interpretation. WBC 12.4 K with neutrophilia and mild left shift. H/H and platelets within normal limits. Chemistry without metabolic acidosis. Potassium 3.2, phosphorus 2.1 and magnesium 1.7. LFTs unremarkable. Initial high-sensitivity troponin 30.7, similar to prior range of values. Lipase is normal. TSH within normal limits. UA is consistent with infection with 4+ bacteria and positive nitrites. CT of the head and CT of the head and neck were performed and were negative for ICH, ischemia or severe narrowing or occlusion of large vessels. Treatment for UTI initiated with ceftriaxone. Given the patient's UTI with associated confusion patient and son at the bedside agree plan for admission for further management. Case was d/w Dr. Carrizales [facility] hospitalist who will evaluate the patient for admission. Triage Nursing notes reviewed and agree them. Prior/external medical records reviewed Vital Signs: reviewed Differential diagnosis: Infection, dehydration, metabolic abnormality, hypo/hyperglycemia, electrolyte disturbance, anemia, hypoxia, cardiac sources, intracerebral event, toxicologic, neurologic, as well as other pathologies. ER treatment provided: See below. Diagnostics interpreted by me: ECG: Sinus rhythm with PACs, 83 bpm, no overt ST ovation or depression, QTc 446, QRS 78. Cardiac Monitoring: An order for continuous cardiac monitoring was placed and demonstrated sinus rhythm with PACs, 83 bpm. Laboratory studies: See below Imaging studies: See below Consultation(s): Case was d/w Dr. Carrizales [facility] hospitalist who will evaluate the patient for admission. HPI: The patient is a pleasant 84-year-old woman with a past medical history of hypertension, hyperlipidemia, carotid artery stenosis, rheumatoid arthritis, history of DVT on Eliquis, cognitive impairment who presents to the Emergency Department via EMS coming by her son for evaluation of confusion which is ongoing since yesterday after the patient was discharged from this facility following admission from 07/18-11/18 for symptoms of gastroenteritis with associated dehydration. Patient's son reports that she was acting normally when he picked her up but on the way home started to say things that do not make sense not recognizing where they were despite going to her home and asking about for members which have been long since . He reports that she has had episodes like this in the past surrounding hospitalizations and so thought he would give it time to improve but this morning continued to be confused. Of note, EMS did report to case management concern for the patient's living conditions where she lives in the upstairs of her home with her son who has Parkinson's. A report to the office of aging is being filed by EMS. ROS: See above HPI for pertinent positives & negatives. A total of 10 systems reviewed and were otherwise negative. VITALS:See Below PHYSICAL EXAMINATION: GENERAL: Awake, alert, in no distress HENT: Normocephalic, atraumatic. Oropharynx with dry mucous membranes and otherwise unremarkable. EYES: Normal conjunctiva. Sclera non-icteric. EOMI. No nystamgus. PEARRL. NECK: Supple. No nuchal rigidity. FROM. No JVD. RESPIRATORY: Clear to auscultation. CARDIAC: Regular rate, normal rhythm. Extremities warm and well perfused. Pulses equal. ABDOMEN: Soft, non-distended. No tenderness to palpation. No rebound or guarding. No masses. MUSCULOSKELETAL: Chest examination reveals no tenderness. The back is symmetrical on inspection without obvious abnormality. There is no CVA tenderness to palpation. No joint edema. LOWER EXTREMITIES: Calves are equal size bilaterally and non-tender. No edema. No discoloration. NEURO: Alert to self. Confused to place, time and situation. Cranial nerves II through XII grossly intact. 5/5 strength and SILT x 4 extremities. Intact finger to nose. SKIN: No rash or jaundice noted. Basilio Moreon MD Past Med/Surg History Problem List (Updated 11/20/24 @ 16:32 by Basilio Moreno MD) Elevated troponin (Acute) Acute UTI (Acute) Carotid artery stenosis Rheumatoid arthritis History of DVT (deep vein thrombosis) Hypophosphatemia (Acute) Leukocytosis Cognitive impairment (Acute) UTI (urinary tract infection) Encephalopathy acute (Acute) Hypertension Hypernatremia Lower respiratory tract infection Nausea, vomiting, and diarrhea Gait disturbance Weakness (Acute) Hypokalemia (Acute) Hypomagnesemia (Acute) Sepsis Elevated troponin I level (Acute) Greater trochanteric pain syndrome Osteopenia (Acute) Left hip pain (Acute) Hyperglycemia (Acute) Greater trochanteric bursitis (Acute) Forgetfulness (Acute) Irregular heart rate Elevated hemoglobin Medical History Acute deep vein thrombosis of both lower extremities 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 Vitamin B12 deficiency Multiple thyroid nodules Osteoporosis SNHL (sensorineural hearing loss) Secondary hyperparathyroidism Vitamin D deficiency disease Aortic arch atherosclerosis Current chronic use of systemic steroids Elevated lactic acid level MGUS (monoclonal gammopathy of unknown significance) Surgical History S/P tubal ligation S/P tonsillectomy Family History Father Congestive heart failure Myocardial infarction Other Breast cancer Denies family history of Ovarian cancer Prostate cancer Colorectal cancer Social History Smoking Status: Former smoker Tobacco Type: Cigarettes Second Hand Exposure: No; Do You Dip or Chew Tobacco: No; Hx Alcohol Use: Yes Alcohol type: wine Hx Substance Use: No Preferred Language: Frisian Communication Ability: Effective Visual Impairment: No Limitations Hearing Ability: Normal Advanced Practice Psychiatric Nurse Required: No Beliefs That Will Affect Care: None marital status: / Current Living Situation: Alone Current Living Situation Comment: son lives across the street current occupational status: retired Feels Safe at Home: Yes Dental Care, Regularly: Yes Physical Activity Frequency: Does not Exercise Seatbelt Use: always Assistive Devices: Cane and Walker Allergies Allergies Allergy/AdvReac Type Severity Reaction Status Date / Time No Known Drug Allergies Allergy Unknown . Verified 11/02/24 13:18 Home Meds Home Medications Medication Instructions Recorded Confirmed amlodipine 5 mg tablet 0 mg PO PM 09/19/24 11/20/24 hydroxychloroquine 200 mg tablet 200 mg PO PM 09/19/24 11/20/24 prednisone 5 mg tablet 5 mg PO PM 09/19/24 11/20/24 cyanocobalamin (vitamin B-12) 1,000 mcg PO HS 10/07/24 11/20/24 1,000 mcg tablet (Vitamin B-12) Previous Rx's Medication Instructions Recorded cholecalciferol (vitamin D3) 125 5,000 unit PO PM #90 caps 09/29/24 mcg (5,000 unit) capsule apixaban 5 mg tablet (Eliquis) 5 mg PO BID #60 tabs 10/15/24 amlodipine 2.5 mg tablet 2.5 mg PO PM #0 tabs 11/19/24 mirtazapine 7.5 mg tablet 7.5 mg PO HS #30 tabs 11/19/24 Results & Data (ED) Vital Signs Vital Signs - 24 hr 11/20/24 07:55 11/20/24 08:11 11/20/24 08:23 Temperature 36.8 C Temperature Source Oral Pulse Rate 93 H 86 Pulse Rate [Apical] Pulse Strength [Apical] Respiratory Rate 18 Respiratory Effort / Characteristics Non-Labored Spontaneous Respiratory Depth Normal Respiratory Pattern Regular Blood Pressure 117/65 Blood Pressure [Right Arm] Blood Pressure Mean 82 Blood Pressure Mean [Right Arm] Pulse Oximetry 95 95 Oxygen Delivery Method Room Air Room Air Sepsis Recent Fever Within 48 Hours No Sepsis New/Unexplained Change in Mental Status N/A Sepsis Action Taken by Nursing No Action Required 11/20/24 08:33 11/20/24 09:55 11/20/24 11:14 Temperature Temperature Source Pulse Rate Pulse Rate [Apical] 72 84 88 Pulse Strength [Apical] Normal Normal Normal Respiratory Rate 18 18 18 Respiratory Effort / Characteristics Non-Labored Spontaneous Non-Labored Spontaneous Non-Labored Spontaneous Respiratory Depth Normal Normal Normal Respiratory Pattern Regular Regular Regular Blood Pressure Blood Pressure [Right Arm] 118/71 112/78 131/80 Blood Pressure Mean Blood Pressure Mean [Right Arm] 86 89 97 Pulse Oximetry 96 99 97 Oxygen Delivery Method Room Air Room Air Room Air Sepsis Recent Fever Within 48 Hours Sepsis New/Unexplained Change in Mental Status Sepsis Action Taken by Nursing Laboratory Data Attestation: I reviewed the patient's lab results. 11/20/24 08:18 11/20/24 08:18 Lab Results 11/20/24 11/20/24 11/20/24 Range/Units 08:05 08:18 08:23 WBC 12.41 H (4.8-10.8) K/ul RBC 5.01 (4.20-5.40) M/uL Hgb 13.7 (12.0-16.0) g/dl POC Hgb 13.6 (12.0-16.0) g/dl Hct 42.4 (37.0-47.0) % POC Hct 40 (37-47) % MCV 84.6 (80.0-100.0) fL MCH 27.3 (25.0-34.0) pg MCHC 32.3 (32.0-36.0) g/dL RDW Std Deviation 50.3 H (36.4-46.3) fL RDW Coeff of Andrés 16.5 H (11.5-14.5) % Plt Count 260 (130-400) K/uL MPV 11.7 (9.4-12.4) fL Immature Gran % (Auto) 6.8 % Neut % (Auto) 61.9 % Lymph % (Auto) 17.9 % [place] % (Auto) 8.3 % Eos % (Auto) 4.1 % Baso % (Auto) 1.0 % Neut # (Auto) 7.69 H (1.40-6.50) K/uL Lymph # (Auto) 2.22 (1.20-3.40) K/uL [place] # (Auto) 1.03 H (0.11-0.59) K/uL Eos # (Auto) 0.51 H (0.00-0.50) K/uL Baso # (Auto) 0.12 (0.00-0.20) K/uL Immature Gran # (Auto) 0.84 H (0.01-0.20) K/uL PT 10.5 (9.0-12.0) Seconds INR 1.0 (0.9-1.1) POC Sodium 144 (135-144) mmol/L Sodium 143 (136-145) mmol/L POC Potassium 3.4 (3.3-5.0) mmol/L Potassium 3.2 L (3.5-5.1) mmol/L POC Chloride 108 (101-112) mmol/L Chloride 111 H (98-107) mmol/L Carbon Dioxide 24 (21-32) mmol/L POC Total CO2 23 L (24-31) mmol/L Anion Gap 8 (3-11) POC Anion Gap 18.0 (16-25) mmol/L POC BUN 10 (7-18) mg/dl BUN 10 (6-23) mg/dl Creatinine 0.61 (0.6-1.2) mg/dl POC Creatinine 0.7 (0.6-1.3) mg/dl Est Cr Clr Drug Dosing 57.8 ml/min eGFR 88.65 BUN/Creatinine Ratio 16.4 (10-20) Glucose 130 H (70-99(Fasting)) mg/dl POC Glucose 128 H (70-99) mg/dl POC Glucose (other) 130 H (70-99) mg/dl Osmolality 297 (280-300) mOsm/kg Calcium 9.0 (8.6-10.3) mg/dl POC Ioniz Calcium Farheen 1.16 (1.12-1.32) mmol/l Phosphorus 2.1 L (2.5-4.9) mg/dl Magnesium 1.7 (1.7-2.4) mg/dl Total Bilirubin 0.9 (0.2-1.0) mg/dl AST 18 (13-39) U/L ALT 18 (7-52) U/L Alkaline Phosphatase 71 (34-104) U/L Troponin I High Sens 38.7 H (0-14) pg/ml Total Protein 5.2 L (6.0-8.3) gm/dl Albumin 3.1 L (3.4-5.0) gm/dl Globulin 2.1 L (2.5-4.0) gm/dl Albumin/Globulin Ratio 1.5 (0.9-2) Lipase 50 (11-82) U/L TSH 1.934 (0.300-4.500) uIu/ml 11/20/24 Range/Units 10:10 WBC (4.8-10.8) K/ul RBC (4.20-5.40) M/uL Hgb (12.0-16.0) g/dl POC Hgb (12.0-16.0) g/dl Hct (37.0-47.0) % POC Hct (37-47) % MCV (80.0-100.0) fL MCH (25.0-34.0) pg MCHC (32.0-36.0) g/dL RDW Std Deviation (36.4-46.3) fL RDW Coeff of Andrés (11.5-14.5) % Plt Count (130-400) K/uL MPV (9.4-12.4) fL Immature Gran % (Auto) % Neut % (Auto) % Lymph % (Auto) % [place] % (Auto) % Eos % (Auto) % Baso % (Auto) % Neut # (Auto) (1.40-6.50) K/uL Lymph # (Auto) (1.20-3.40) K/uL [place] # (Auto) (0.11-0.59) K/uL Eos # (Auto) (0.00-0.50) K/uL Baso # (Auto) (0.00-0.20) K/uL Immature Gran # (Auto) (0.01-0.20) K/uL PT (9.0-12.0) Seconds INR (0.9-1.1) POC Sodium (135-144) mmol/L Sodium (136-145) mmol/L POC Potassium (3.3-5.0) mmol/L Potassium (3.5-5.1) mmol/L POC Chloride (101-112) mmol/L Chloride (98-107) mmol/L Carbon Dioxide (21-32) mmol/L POC Total CO2 (24-31) mmol/L Anion Gap (3-11) POC Anion Gap (16-25) mmol/L POC BUN (7-18) mg/dl BUN (6-23) mg/dl Creatinine (0.6-1.2) mg/dl POC Creatinine (0.6-1.3) mg/dl Est Cr Clr Drug Dosing ml/min eGFR BUN/Creatinine Ratio (10-20) Glucose (70-99(Fasting)) mg/dl POC Glucose (70-99) mg/dl POC Glucose (other) (70-99) mg/dl Osmolality (280-300) mOsm/kg Calcium (8.6-10.3) mg/dl POC Ioniz Calcium Farheen (1.12-1.32) mmol/l Phosphorus (2.5-4.9) mg/dl Magnesium (1.7-2.4) mg/dl Total Bilirubin (0.2-1.0) mg/dl AST (13-39) U/L ALT (7-52) U/L Alkaline Phosphatase (34-104) U/L Troponin I High Sens 43.2 H (0-14) pg/ml Total Protein (6.0-8.3) gm/dl Albumin (3.4-5.0) gm/dl Globulin (2.5-4.0) gm/dl Albumin/Globulin Ratio (0.9-2) Lipase (11-82) U/L TSH (0.300-4.500) uIu/ml Administered Medications Apixaban (Apixaban 5 Mg Tablet) 5 mg PO BID DHRUV Stop: 12/20/24 12:47 Last Admin: 11/20/24 13:41 Dose: 5 mg Documented By: GGG Discontinued Medications Ceftriaxone Sodium (Rocephin) 2,000 mg in 50 mls @ 100 mls/hr IV NOW STA Stop: 11/20/24 11:30 Last Infusion: 11/20/24 12:59 Dose: Infused Documented By: Admin: 11/20/24 11:11 Dose: 100 mls/hr Documented By: DIPAK Magnesium Sulfate/Dextrose (Magnesium Sulfate / D5w) 1 gm in 100 mls @ 50 mls/hr IV ONE ONE Stop: 11/20/24 13:44 Last Infusion: 11/20/24 13:42 Dose: Infused Documented By: Admin: 11/20/24 11:59 Dose: 50 mls/hr Documented By: DIPAK Ioversol (Optiray 320 125ml) 112 ml IV ONCE ONE Stop: 11/20/24 09:04 Last Admin: 11/20/24 09:04 Dose: 112 ml Documented By: DESIRAE Potassium Chloride (Potassium Chloride Crtab 20 Meq Tabcr) 40 meq PO NOW STA Stop: 11/20/24 11:46 Last Admin: 11/20/24 11:59 Dose: 40 meq Documented By: DIPAK Potassium Chloride (Potassium Chloride Crtab 20 Meq Tabcr) 40 meq PO NOW ONE Stop: 11/20/24 15:46 Last Admin: 11/20/24 15:20 Dose: 40 meq Documented By: DARLENE Imaging Data Radiologist's Impression: Chest X-Ray 11/20/24 08:04 XR chest 1V portable CLINICAL HISTORY: Chest pain, nonspecific COMPARISON STUDY: 11/17/2024 FINDINGS: Heart size and pulmonary vasculature are normal. Stable mild elevation of the right hemidiaphragm. Inspiration is shallow. There is interval stranding opacity medial left lung base with partial obscuration of the left hemidiaphragm. No pneumothorax. IMPRESSION: Atelectasis versus early pneumonia left lung base. ACT 112: Negative or not required by law. Electronically signed by: Ishmael Esparza M.D. 11/20/2024 8:[address] 11/20/24 08:26 CT head/brain wo con CLINICAL HISTORY: Confusion. TECHNIQUE: Multiple axial CT images of the head were obtained without contrast. A dose lowering technique was utilized adhering to the principles of ALARA. CT DOSE: 956 COMPARISON: 10/07/2024 FINDINGS: There are stable globus pallidus calcifications, unremarkable in this age group. Stable moderate chronic small vessel ischemic changes. No intracranial hemorrhage seen. No mass effect, midline shift, or hydrocephalus. No skull fracture seen. There is interval small amount of fluid in the right maxillary sinus. A few mastoid air cells are opacified bilaterally.. IMPRESSION: 1. No acute intracranial findings. 2. Interval small amount of fluid in the right maxillary sinus, suggesting early sinusitis. ACT 112: Negative or not required by law. The above report was generated using voice recognition software. It may contain grammatical, syntax or spelling errors. Electronically signed by: Ishmael Esparza M.D. 11/20/2024 9:19 AM Head CTA 11/20/24 08:26 CT angio head w con CLINICAL HISTORY: Confusion. COMPARISON STUDY: None TECHNIQUE: Unenhanced axial CT scan of the brain is performed. Subsequently, following the IV administration of 112 cc of Optiray, CT angiogram of the brain was performed from the skull base to the vertex. Images are reviewed in the axial, sagittal, and coronal planes. 3-D MIPS images are created and assessed. IV contrast was administered without complication. All measurements were obtained according to NASCET criteria. A dose lowering technique was utilized adhering to the principles of ALARA. CT DOSE: 955.56 mGy.cm FINDINGS: Intracranial internal carotid and vertebral arteries showed no significant narrowing or occlusion. Basilar artery is widely patent. Anterior, middle, and posterior cerebral arteries are patent bilaterally. Cerebral venous sinuses opacify normally. No intracranial aneurysm seen. IMPRESSION: No significant arterial narrowing or occlusion seen of the brain. ACT 112: Negative or not required by law. The above report was generated using voice recognition software. It may contain grammatical, syntax or spelling errors. Electronically signed by: Ishmael Esparza M.D. 11/20/2024 9:23 AM Neck CTA 11/20/24 08:26 CT angio neck with con CLINICAL HISTORY: 84 years-old Female with Confusion. Acutely altered mental status COMPARISON STUDY: CTA head of same day, CT soft tissue neck 02/28/2016. TECHNIQUE: Following the IV administration of 112 mL of Optiray, CT angiogram of the neck was performed from the aortic arch to the skull base. Images are reviewed in the axial, sagittal, and coronal planes. 3-D MIPS images are created and assessed. IV contrast was administered without complication. All measurements were calculated based on NASCET criteria. A dose lowering technique was utilized adhering to the principles of ALARA. FINDINGS: Atherosclerosis with mild dilation of the aortic isthmus measures up to 3.2 cm transversely. Three-vessel morphology of the thoracic arch. There is patency of the innominate and imaged subclavian arteries. Medial course of the patent common carotid arteries within a retropharyngeal location. There is moderate calcified plaque of the carotid bulbs. There is less than 50% stenosis on the right and approximately 70% stenosis on the left. The internal carotid arteries are otherwise widely patent. Dominant left vertebral artery. Bilateral vertebral arteries are patent. Lung apices appear clear. No pneumothorax. Multinodular thyroid goiter. Unremarkable soft tissues. Right maxillary sinus air-fluid level may represent acute sinusitis. Debris noted within the upper cervical esophagus. Degenerative changes of the spine. Anterolisthesis C4 on C5 and C5 on C6 secondary to underlying chronic facet disease. Trace mastoid effusions. IMPRESSION: 1. Atherosclerotic plaque of the left carotid bulb results in 70% stenosis. 2. Plaque within the right carotid bulb results in less than 50% narrowing. 3. Patent vertebral arteries. ACT 112: Negative or not required by law. The above report was generated using voice recognition software. It may contain grammatical, syntax or spelling errors. Electronically signed by: Fernando Pugh M.D. 11/20/2024 9:31 AM Discharge Plan Visit Data Chief Complaint: Confusion Stated Complaint: CONFUSION ED Provider: Basilio Moreno Discharge Problem: Acute UTI, Hypomagnesemia, Hypokalemia, Cognitive impairment, Encephalopathy acute, Hypophosphatemia, Elevated troponin Discharge Instructions Interventions: ED Discharge Assessment Last Done: 11/20/24 12:48
--- NOTE | 2024-11-20 08:27 | XRay Report ---
XR chest 1V portable CLINICAL HISTORY: Chest pain, nonspecific COMPARISON STUDY: 11/17/2024 FINDINGS: Heart size and pulmonary vasculature are normal. Stable mild elevation of the right hemidia phragm. Inspiration is shallow. There is interval stranding opacity medial left lung base with partia l obscuration of the left hemidiaphragm. No pneumothorax. IMPRESSION: Atelectasis versus early pneumonia left lung base. ACT 112: Negative or not required by law. Electronically signed by: Ishmael Esparza M.D. 11/20/2024 8:25 AM
[2024-11-20 08:36] LABS: iSTAT Creatinine 0.7 mg/dl (0.6-1.3); iSTAT Hemoglobin 13.6 g/dl (12.0-16.0); iSTAT Ionized Calcium 1.16 mmol/l (1.12-1.32); iSTAT Potassium 3.4 mmol/L (3.3-5.0)
[2024-11-20 08:38] LABS: Hematocrit (blood only) 42.4 % (37.0-47.0); Hemoglobin 13.7 g/dl (12.0-16.0); Mean Corpuscular Hemoglobin 27.3 pg (25.0-34.0); Mean Corpuscular Hgb Conc 32.3 g/dL (32.0-36.0); Mean Corpuscular Volume 84.6 fL (80.0-100.0); Mean Platelet Volume 11.7 fL (9.4-12.4); Platelet Count 260 K/uL (130-400); RDW Coefficient of Variation 16.5 % (11.5-14.5); RDW Standard Deviation 50.3 fL (36.4-46.3); Red Blood Count 5.01 M/uL (4.20-5.40); White Blood Count 12.41 K/ul (4.8-10.8)
[2024-11-20 08:55] LABS: Albumin Globulin Ratio 1.5 (0.9-2); Albumin Level 3.1 gm/dl (3.4-5.0); BUN Creatinine Ratio 16.4 (10-20); Bilirubin,Total 0.9 mg/dl (0.2-1.0); Creatinine Clr Calc Pharmacy 57.8 ml/min; Globulin 2.1 gm/dl (2.5-4.0); Magnesium 1.7 mg/dl (1.7-2.4); Phosphorus 2.1 mg/dl (2.5-4.9); Potassium 3.2 mmol/L (3.5-5.1); Total Protein 5.2 gm/dl (6.0-8.3)
[2024-11-20 08:59] LABS: Prothrombin Time 10.5 Seconds (9.0-12.0)
[2024-11-20 09:00] LABS: Troponin I High Sensitivity 38.7 pg/ml (0-14)
[2024-11-20] MEDS: OPTIRAY 320 125ml IV ONE (09:04)
[2024-11-20 09:10] LABS: Thyroid Stimulating Hormone 1.934 uIu/ml (0.300-4.500)
[2024-11-20 09:11] LABS: Basophils # (auto) 0.12 K/uL (0.00-0.20); Eosinophils # (auto) 0.51 K/uL (0.00-0.50); Eosinophils % (auto) 4.1 %; Immature Granulocytes # (auto) 0.84 K/uL (0.01-0.20); Immature Granulocytes % (auto) 6.8 %; Lymphocytes # (auto) 2.22 K/uL (1.20-3.40); Lymphocytes % (auto) 17.9 %; Monocytes # (auto) 1.03 K/uL (0.11-0.59); Monocytes % (auto) 8.3 %; Neutrophils # (auto) 7.69 K/uL (1.40-6.50); Neutrophils % (auto) 61.9 %
--- NOTE | 2024-11-20 09:21 | CT Scan Report ---
CT head/brain wo con CLINICAL HISTORY: Confusion. TECHNIQUE: Multiple axial CT images of the head were obtained without contrast. A dose lowering tech nique was utilized adhering to the principles of ALARA. CT DOSE: 956 COMPARISON: 10/07/2024 FINDINGS: There are stable globus pallidus calcifications, unremarkable in this age group. Stable mod erate chronic small vessel ischemic changes. No intracranial hemorrhage seen. No mass effect, midline shift, or hydrocephalus. No skull fracture seen. There is interval small amount of fluid in the righ t maxillary sinus. A few mastoid air cells are opacified bilaterally.. IMPRESSION: 1. No acute intracranial findings. 2. Interval small amount of fluid in the right maxillary sinus, suggesting early sinusitis. ACT 112: Negative or not required by law. The above report was generated using voice recognition software. It may contain grammatical, syntax o r spelling errors. Electronically signed by: Ishmael Esparza M.D. 11/20/2024 9:19 AM
--- NOTE | 2024-11-20 09:25 | CT Scan Report ---
CT angio head w con CLINICAL HISTORY: Confusion. COMPARISON STUDY: None TECHNIQUE: Unenhanced axial CT scan of the brain is performed. Subsequently, following the IV adminis tration of 112 cc of Optiray, CT angiogram of the brain was performed from the skull base to the vert ex. Images are reviewed in the axial, sagittal, and coronal planes. 3-D MIPS images are created and a ssessed. IV contrast was administered without complication. All measurements were obtained according to NASCET criteria. A dose lowering technique was utilized adhering to the principles of ALARA. CT DOSE: 955.56 mGy.cm FINDINGS: Intracranial internal carotid and vertebral arteries showed no significant narrowing or occ lusion. Basilar artery is widely patent. Anterior, middle, and posterior cerebral arteries are patent bilaterally. Cerebral venous sinuses opacify normally. No intracranial aneurysm seen. IMPRESSION: No significant arterial narrowing or occlusion seen of the brain. ACT 112: Negative or not required by law. The above report was generated using voice recognition software. It may contain grammatical, syntax o r spelling errors. Electronically signed by: Ishmael Esparza M.D. 11/20/2024 9:23 AM
--- NOTE | 2024-11-20 09:33 | CT Scan Report ---
CT angio neck with con CLINICAL HISTORY: 84 years-old Female with Confusion. Acutely altered mental status COMPARISON STUDY: CTA head of same day, CT soft tissue neck 02/28/2016. TECHNIQUE: Following the IV administration of 112 mL of Optiray, CT angiogram of the neck was perform ed from the aortic arch to the skull base. Images are reviewed in the axial, sagittal, and coronal pl anes. 3-D MIPS images are created and assessed. IV contrast was administered without complication. Al l measurements were calculated based on NASCET criteria. A dose lowering technique was utilized adhe ring to the principles of ALARA. FINDINGS: Atherosclerosis with mild dilation of the aortic isthmus measures up to 3.2 cm transversely. Three-ve ssel morphology of the thoracic arch. There is patency of the innominate and imaged subclavian arteri es. Medial course of the patent common carotid arteries within a retropharyngeal location. There is m oderate calcified plaque of the carotid bulbs. There is less than 50% stenosis on the right and appro ximately 70% stenosis on the left. The internal carotid arteries are otherwise widely patent. Dominan t left vertebral artery. Bilateral vertebral arteries are patent. Lung apices appear clear. No pneumothorax. Multinodular thyroid goiter. Unremarkable soft tissues. Ri ght maxillary sinus air-fluid level may represent acute sinusitis. Debris noted within the upper cerv ical esophagus. Degenerative changes of the spine. Anterolisthesis C4 on C5 and C5 on C6 secondary to underlying chronic facet disease. Trace mastoid effusions. IMPRESSION: 1. Atherosclerotic plaque of the left carotid bulb results in 70% stenosis. 2. Plaque within the right carotid bulb results in less than 50% narrowing. 3. Patent vertebral arteries. ACT 112: Negative or not required by law. The above report was generated using voice recognition software. It may contain grammatical, syntax o r spelling errors. Electronically signed by: Fernando Pugh M.D. 11/20/2024 9:31 AM
[2024-11-20 10:10] LABS: Appearance Urine Clear (Clear); Bilirubin Urine Negative (Negative); Color Urine Yellow; Glucose Urine UA Negative (Negative); Ketones Urine Negative (Negative); Protein Urine Negative (Negative); Specific Gravity Urine 1.034 (1.000-1.030); pH Urine 5.5 (4.5-7.5)
[2024-11-20 10:11] LABS: Bacteria Urine Automated 4+ (None Seen); Blood Urine Negative (Negative); Cast Urine Automated 0-2 /lpf (0-2); Epithelial Cell Urine Auto 0-2 /hpf (0-2); Leukocyte Esterase Urine Trace (Negative); Nitrite Urine Positive (Negative); RBC Urine Automated 0-2 /hpf (0-2); Urobilinogen Urine Negative (Negative); WBC Urine Automated 0-5 /hpf (0-5)
[2024-11-20] MEDS: cefTRIAXone SODIUM 2,000 MG/50 ML BAG IV STA (11:11)
--- NOTE | 2024-11-20 11:15 | History & Physical Report ---
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 She has had recurring admissions this August 2024 with confusion secondary to and infections. She wasdischarged from the hospital yesterday 11/19 after being admitted for electrolyte abnormalities secondary to gastroenteritis. She was to have home health PT/OT. She was brought in by EMS today due to confusion and hallucinations noted by her son. She was found to have UTI in the ED is being admitted for confusion. #UTI/confusion/cognitive impairment Son notes history of underlying dementia, however no official diagnosis stroke workup in ED essentially negative, head CT negative, CTA negative, neck CTA showed bilateral stenosis - Defer further stroke workup with MRI as confusion explained by UTI UA appears infectious with 4+ bacteria and nitrates History of pansensitive E. coli and Klebsiella pneumoniae resistant to nitro Continue Rocephin started in ED Urine culture is pending Promote oral hydration Fall and aspiration precautions Defer PT/OT evals as patient had recent discharge and has PT/OT set up patient previously on Seroquel 12.5 Mg at bedtime during previous admissions due to confusion and delirium; will order Seroquel during inpt stay - QTC 446 - appears as though confusion is in setting of acute infection - patient at home over holidays, at baseline mentation with no acute infection - recommend dc Seroquel on discharge #hypomagnesemia/hypokalemia 2/2 to recent gastroenteritis K+ 3.2 -> 80 Meq PO ordered Mg 1.7 -> 1G IV ordered trend BMP and Mg #hypophosphatemia 2/2 to recent gastroenteritis phos 2.1 on admission defer repletion as Na borderline high (144) trend phos and if <2 consider PO repletion #leukocytosis chronic, 2/2 to chronic prednisone use improving WBC 12.41 with left shift on admission trend CBC #elevated troponin chronically elevated, at baseline 38.7 -> 43.2 EKG NSR with PACs denies chest pain defer trend #HTN amlodipine has been on hold during missions due to hypotension Noted to resume 12/17/2024 Continue to hold amlodipine as borderline hypotensive in ED #RA continue prednisone 5 Mg (PND.) and hydroxychloroquine Defer need for stress dose steroids on admission Recent n/v/d, hypotension, and electrolyte abnormalities concerning for adrenal insufficiency A.m. 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 She has had recurring admissions this August 2024 with confusion secondary to and infections. She wasdischarged from the hospital yesterday 11/19 after being admitted for electrolyte abnormalities secondary to gastroenteritis. She was to have home health PT/OT. She was brought in by EMS today due to confusion and hallucinations noted by her son. She was found to have UTI in the ED is being admitted for confusion. Patient seen at bedside with her son present. She lives at home with her other son who has Parkinson's; he lives downstairs and she lives upstairs. The son present at bedside lives across the street and checks in on them frequently. Her son picked her up from the hospital around 3 PM yesterday, her mentation was well and at baseline. On the way home she started asking about her uncle who has been for approximately 20 years, she also was hearing music however no music was playing in the car. When they arrived at home the music continued throughout the evening and she started seeing her mother in the house. Her appetite was well yesterday and she ate 2 slices of pizza for dinner, however said that it was goat soup. She went to bed around 9 PM and when she woke up this morning she said that she was in a farm house and playing with imaginary kids. Despite the confusion at home overnight, she was still able to care for herself and change her close, which she has had difficulty with recently. With her previous admission she had confusion but has never had hallucinations. Her baseline is alert and oriented x 4. It is noted that during recent admission she was started on Seroquel at bedtime, but was never continued on this at home. When she was at home over the holidays, she was at her baseline mentation and ambulating well. Her episodes of confusion requiring hospitalization recently been secondary to UTI and then pneumonia. When she was discharged on an oral antibiotic, her son notes that she has a poor appetite and does not eat well at home, which resulted in her most recent admission. His goal is to have her treated for UTI during inpatient stay, would prefer to not have her discharged home on oral antibiotics. The patient overall has no complaints. ER provider stated she thought she was in a fire paulino earlier. On admission exam, alert and oriented x 4. Her son stated she is improved after receiving 1 dose of IV antibiotics. She denies fevers, chills, chest pain, shortness of breath, abdominal pain, nausea, vomiting, recent diarrhea, dysuria, hematuria. When she went home last night, the only medication she took was her evening Eliquis as she was not sure which she received in the hospital. She did not take her morning medications yet today; ordered on admission. She wishes to be full code at this time, discussed with patient's son at bedside he agrees. Handoff from the ER provider and case management notes stated that EMS to place report to office of aging due to living conditions in the patient's home. Allergies Allergy/AdvReac Type Severity Reaction Status Date / Time No Known Drug Allergies Allergy Unknown . Verified 11/02/24 13:18 Home Medications Medication Instructions Recorded Confirmed Type amlodipine 5 mg tablet 0 mg PO PM 09/19/24 11/20/24 History hydroxychloroquine 200 mg tablet 200 mg PO PM 09/19/24 11/20/24 History prednisone 5 mg tablet 5 mg PO PM 09/19/24 11/20/24 History cholecalciferol (vitamin D3) 125 5,000 unit PO PM #90 caps 09/29/24 11/20/24 Rx mcg (5,000 unit) capsule cyanocobalamin (vitamin B-12) 1,000 mcg PO HS 10/07/24 11/20/24 History 1,000 mcg tablet (Vitamin B-12) apixaban 5 mg tablet (Eliquis) 5 mg PO BID #60 tabs 10/15/24 11/20/24 Rx amlodipine 2.5 mg tablet 2.5 mg PO PM #0 tabs 11/19/24 11/20/24 Rx mirtazapine 7.5 mg tablet 7.5 mg PO HS #30 tabs 11/19/24 11/20/24 Rx Past Med/Surg History Problem List (Updated 11/21/24 @ 07:34 by Beth Lr MD) Acute gastroenteritis Generalized weakness (Acute) Acute dehydration (Acute) Nausea vomiting and diarrhea (Acute) Elevated troponin (Acute) Acute UTI (Acute) Carotid artery stenosis Rheumatoid arthritis History of DVT (deep vein thrombosis) Hypophosphatemia (Acute) Leukocytosis Cognitive impairment (Acute) UTI (urinary tract infection) Encephalopathy acute (Acute) Hypertension Hypernatremia Lower respiratory tract infection Nausea, vomiting, and diarrhea Gait disturbance Weakness (Acute) Hypokalemia (Acute) Hypomagnesemia (Acute) Sepsis Elevated troponin I level (Acute) Greater trochanteric pain syndrome Osteopenia (Acute) Left hip pain (Acute) Hyperglycemia (Acute) Greater trochanteric bursitis (Acute) Forgetfulness (Acute) Irregular heart rate Elevated hemoglobin Medical History Acute deep vein thrombosis of both lower extremities 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 Vitamin B12 deficiency Multiple thyroid nodules Osteoporosis SNHL (sensorineural hearing loss) Secondary hyperparathyroidism Vitamin D deficiency disease Aortic arch atherosclerosis Current chronic use of systemic steroids Elevated lactic acid level MGUS (monoclonal gammopathy of unknown significance) Surgical History S/P tubal ligation S/P tonsillectomy Family History Father Congestive heart failure Myocardial infarction Other Breast cancer Denies family history of Ovarian cancer Prostate cancer Colorectal cancer Social History Smoking Status: Former smoker Tobacco Type: Cigarettes Second Hand Exposure: No; Do You Dip or Chew Tobacco: No; Hx Alcohol Use: Yes Alcohol type: wine Hx Substance Use: No Preferred Language: Lao Communication Ability: Effective Visual Impairment: No Limitations Hearing Ability: Normal System Development Engineer Required: No Beliefs That Will Affect Care: None marital status: / Current Living Situation: Alone Current Living Situation Comment: son lives across the street current occupational status: retired Feels Safe at Home: Yes Dental Care, Regularly: Yes Physical Activity Frequency: Does not Exercise Seatbelt Use: always Assistive Devices: Cane and Walker Review of Systems Review of Systems: see HPI Physical Exam Physical Exam: The patient is awake, alert and oriented 3, well developed and well nourished, normocephalic and atraumatic, in no acute distress. Non-toxic appearing. HEENT- EOMI, mucous membranes dry. Hearing grossly intact. Heart-normal S1 and S2. No murmurs, rubs or gallops. Lungs-clear bilaterally, no respiratory distress, no accessory muscle use. Abdomen-normal bowel sounds and soft. No ascites noted. Non-tender. Extremities- no clubbing, cyanosis, or edema. Psychiatric-normal affect. Results & Data Results & Data Vital Signs (Past 12 Hours) Vital Signs Temp Pulse Pulse Resp BP BP Pulse Ox 11/20/24 11:14 88 18 131/80 97 11/20/24 09:55 84 18 112/78 99 11/20/24 08:33 72 18 118/71 96 11/20/24 08:23 95 11/20/24 08:11 86 11/20/24 07:55 36.8 C 93 H 18 117/65 95 O2 Del Method 11/20/24 11:14 Room Air 11/20/24 09:55 Room Air 11/20/24 08:33 Room Air 11/20/24 08:23 Room Air 11/20/24 08:11 11/20/24 07:55 Room Air Laboratory Results Reviewed CBC, CMP, UA, mag , phos, trop Diagnostic Findings reviewed CXR, head CT, head CTA, neck cta Medications Administered ed: Rocephin ECG Additional Comments: NSR with occasional PACS, QTC 446 Code Status & VTE Plan Code Status full code VTE Prophylaxis Plan VTE Prophylaxis will be ordered: Yes Supervising Physician Co-Signing Physician Notes I personally saw and examined the patient. I independently reviewed the labs, EKG, imaging, problem list, medication list, past medical history and family history. I verified all navarro points and agree with Janene Aguilar PA-C with the following exceptions and/or additions: 84 year old female presents to the ER with hallucinations, just discharged yesterday with suspected gastroenteritis, initially doing well on discharge but as soon as getting home she started having hallucinations again. Required Seroquel on prior hospitalizations but back to her baseline prior to her most recent admission. O/E A&Ox3, HS RRR, no murmurs, Chest CTAB, Abdo SNT, no CVA tenderness A/P UTI - treat with IV ceftriaxone, follow up urine culture Hallucinations - place back on Seroquel while hospitalized consider PRN dose on discharge although hopefully with treatment for UTI she will no longer require this PG Care Time/CCT Total # of Minutes Spent Total Time Spent with Patient: Total time spent is greater than 50% in coordination of care (as documented) at patient's floor/unit and/or counseling patient: Coding Level of Care Code 44103 INT INP/OBS CARE MIN Diagnoses Encephalopathy acute G93.40 UTI (urinary tract infection) N39.0 Cognitive impairment R41.89 Hypokalemia E87.6 Hypomagnesemia E83.42 Hypophosphatemia E83.39 Leukocytosis D72.829 Elevated troponin I level R79.89 Hypertension I10 Rheumatoid arthritis M06.9 Carotid artery stenosis I65.29
[2024-11-20] MEDS: POTASSIUM CHLORIDE CRTAB 20 MEQ TABCR PO STA (11:59)
[2024-11-20] MEDS: MAGNESIUM SULFATE / D5W 1 GM/100 ML BAG IV ONE (11:59)
[2024-11-20] MEDS ORDERED: ACETAMINOPHEN 325 MG TAB PO PRN (12:48)
[2024-11-20] MEDS: APIXABAN 5 MG TABLET PO SCH (13:41)
[2024-11-20] MEDS: POTASSIUM CHLORIDE CRTAB 20 MEQ TABCR PO ONE (15:20)
--- NOTE | 2024-11-20 17:30 | Electrocardiogram Report ---
Test Reason : Blood Pressure : */* mmHG Vent. Rate : 83 BPM Atrial Rate : 83 BPM P-R Int : 158 ms QRS Dur : 78 ms QT Int : 380 ms P-R-T Axes : 78 -40 59 degrees QTcB Int : 446 ms Sinus rhythm with Premature atrial complexes Left axis deviation Minimal voltage criteria for LVH, may be normal variant Abnormal ECG When compared with ECG of 17-Nov-2024 14:06, Premature ventricular complexes are no longer Present Confirmed by Robson Rice ([id number] on 11/20/2024 5:30:27 PM Referred By: REFERRED SELF Confirmed By: Rboson Rice
[2024-11-20] MEDS: predniSONE 5 MG TAB PO SCH (21:40)
[2024-11-20] MEDS: HYDROXYCHLOROQUINE SULFATE 200 MG TAB PO SCH (21:40)
[2024-11-20] MEDS: MIRTAZAPINE TAB 15 MG TAB PO SCH (21:40)
[2024-11-20] MEDS: QUEtiapine FUMARATE 25 MG TABLET PO SCH (21:40)
[2024-11-21 07:26] LABS: Basophils # (auto) 0.08 K/uL (0.00-0.20); Basophils % (auto) 0.7 %; Eosinophils # (auto) 0.18 K/uL (0.00-0.50); Eosinophils % (auto) 1.6 %; Hematocrit (blood only) 40.3 % (37.0-47.0); Immature Granulocytes # (auto) 0.54 K/uL (0.01-0.20); Immature Granulocytes % (auto) 4.7 %; Lymphocytes # (auto) 1.07 K/uL (1.20-3.40); Lymphocytes % (auto) 9.4 %; Mean Corpuscular Hemoglobin 27.8 pg (25.0-34.0); Mean Corpuscular Hgb Conc 32.3 g/dL (32.0-36.0); Mean Corpuscular Volume 86.3 fL (80.0-100.0); Monocytes # (auto) 0.62 K/uL (0.11-0.59); Monocytes % (auto) 5.4 %; Neutrophils # (auto) 8.93 K/uL (1.40-6.50); Neutrophils % (auto) 78.2 %; Platelet Count 221 K/uL (130-400); RDW Coefficient of Variation 17.1 % (11.5-14.5); RDW Standard Deviation 53.4 fL (36.4-46.3); Red Blood Count 4.67 M/uL (4.20-5.40); White Blood Count 11.42 K/ul (4.8-10.8)
--- NOTE | 2024-11-21 07:49 | Discharge Summary ---
Discharge Summary Date of Service November 19, 2024 Principal Dx & Hospital Course #1 = Principal Diagnosis (1) Acute gastroenteritis: (2) Encephalopathy acute: (3) Cognitive impairment: (4) Hypokalemia: (5) Hypomagnesemia: (6) Elevated troponin I level: (7) Rheumatoid arthritis: (8) Acute dehydration: Plan 84-year-old woman admitted with acute gastroenteritis and resultant dehydration and electrolyte depletion. she had a recent respiratory illness with antibiotics late September/early October. On admission respiratory and stool bio fire negative and C. difficile toxin negative. Her son also had a gastrointestinal intestinal illness with onset after hers # Acute gastroenteritis, dehydration, hypernatremia, hypokalemia, hypomagnesemia diarrhea resolved and this was likely a viral gastroenteritis. oral intake improved, eating >50% of meals - probiotic - sodium normalized with IV fluids - electrolytes were replaced IV and po and normalized # Steroid dependence - 5 mg prednisone chronically for RA. Was started on stress dose steroids at admission stress dose steroids stopped 11/18 and prednisone was resumed # Recent lower respiratory tract infection: Plan: had a respiratory illness in late September/early October while rehabbing at local SNF COVID testing was negative at that time, and full Biofire resp panel today here is negative CXR is clear mild L basilar rales but no signs/symptoms of a lingering pneumonia process treated recently with augmetin/doxycycline x 7 days each prior to admission not requiring supplemental oxygen appears to have resolved # Acute deep vein thrombosis of both lower extremities: hospitalized in September 2024 at [facility] for extensive b/l LE DVTs (nearly the entire venous system) with extension of clot into the iliacs and IVC seen by vascular surgery - no filter recommended, no direct thrombolysis advised CTA chest negative for PEs continue apixaban lifelong for extensive clot unclear what provoked this however she may have had immobility and potentially dehydration with her preceding respiratory illness, she may have prolonged inflammatory state with her underlying rheumatoid arthritis occult malignancy is a possibility as or other causes of thrombophilia # mildly elevated HS-troponin: chronic elevation present every check in our system. Minimally elevated above her baseline of 30s-40s. 62 on admission and downtrended. No chest pain, dyspnea, hypoxia. EKG sinus rhythm with pac's, no ST changes. No evidence of ACS. Possibly mild myocardial demand ischemia from dehydration. Recent echo 10/08/24 with EF 70% normal LV wall motion, mild conc LVH, grade 1 diastolic dysfunction, normal RSVP, no significant valvular disease # Cognitive impairment: pt's son reports baseline cognitive impairment during her stay in September she had superimposed hospital delirium records indicate she needed seroquel at that time and tolerated the med QTc is mildly prolonged but still <500msec at admission started back on on Seroquel 12.5 mg at bedtime, did not have evidence of delirium 11/18 and 11/19 when I saw her, not continued on discharge because of risk:benefit # Rheumatoid arthritis: patient is on chronic prednisone therapy 5mg/day as well as plaquenil 200mg daily - continue no RA flare at this time # Hypertension: mildly hypotensive on admission and amlodipine held, resolved, resumed amlodip ine I updated her son at bedside 11/18 PT/OT recommended 24-hour support/ supervision and home health PT/OT was ordered. lives with her son. 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 She has had recurring admissions this August 2024 with confusion secondary to and infections. She wasdischarged from the hospital yesterday 11/19 after being a dmitted for electrolyte abnormalities secondary to gastroenteritis. She was to have home health PT/OT. She was brought in by EMS today due to confusion and hallucinations noted by her son. She was found to have UTI in the ED is being admitted for confusion. Patient seen at bedside with her son present. She lives at home with her other son who has Parkinson's; he lives downstairs and she lives upstairs. The son present at bedside lives across the street and checks in on them frequently. Her son picked her up from the hospital around 3 PM yesterday, her mentation was well and at baseline. On the way home she started asking about her uncle who has been for approximately 20 years, she also was hearing music however no music was playing in the car. When they arrived at home the music continued throughout the evening and she started seeing her mother in the house. Her appetite was well yesterday and she ate 2 slices of pizza for dinner, however said that it was goat soup. She went to bed around 9 PM and when she woke up this morning she said that she was in a farm house and playing with imaginary kids. Despite the confusion at home overnight, she was still able to care for herself and change her close, which she has had difficulty with recently. With her previous admission she had confusion but has never had hallucinations. Her baseline is alert and oriented x 4. It is noted that during recent admission she was started on Seroquel at bedtime, but was never continued on this at home. When she was at home over the holidays, she was at her baseline mentation and ambulating well. Her episodes of confusion requiring hospitalization recently been secondary to UTI and then pneumonia. When she was discharged on an oral antibiotic, her son notes that she has a poor appetite and does not eat well at home, which resulted in her most recent admission. His goal is to have her treated for UTI during inpatient stay, would prefer to not have her discharged home on oral antibiotics. The patient overall has no complaints. ER provider stated she thought she was in a fire paulino earlier. On admission exam, alert and oriented x 4. Her son stated she is improved after receiving 1 dose of IV antibiotics. She denies fevers, chills, chest pain, shortness of breath, abdominal pain, nausea, vomiting, recent diarrhea, dysuria, hematuria. When she went home last night, the only medication she took was her evening Eliquis as she was not sure which she received in the hospital. She did not take her morning medications yet today; ordered on admission. She wishes to be full code at this time, discussed with patient's son at bedside he agrees. Handoff from the ER provider and case management notes stated that EMS to place report to office of aging due to living conditions in the patient's home. Discharge Exam PHYSICAL EXAMINATION Last 24h vital signs reviewed, see documentation in flowsheet General: comfortable appearing, no distress, sitting up awake in bed HEENT: Normocephalic, atraumatic, pupils round and equal, sclerae anicteric, no conjunctival injection, moist mucus membranes Lungs: Normal respiratory effort. Clear to auscultation bilaterally. No RRW Heart: Regular rate and rhythm, no murmurs. No JVD Abdomen: Soft, nontender, nondistended. Bowel sounds present. Extremities: Warm, dry, well-perfused. No extremity edema. Neuro: Alert and oriented x self, hospital, basic situation, face symmetric, moves 4 extremities well Psych: Normal affect and behavior Discharge Plan Discharge Items Reason For Visit: UTI, CONFUSION Follow-up/Referrals: Eliel Lynn MD [Primary Care Provider] - Medications and DC Order Prescriptions: No Action cholecalciferol (vitamin D3) 125 mcg (5,000 unit) capsule 5,000 unit PO PM Qty: 90 3RF Rx Instructions: Unable to verify OTC meds at this date/time. cyanocobalamin (vitamin B-12) [Vitamin B-12] 1,000 mcg Tablet 1,000 mcg PO HS Rx Instructions: Unable to verify OTC meds at this date/time. Eliquis 5 mg tablet 5 mg PO BID Qty: 60 0RF prednisone 5 mg tablet 5 mg PO PM amlodipine 5 mg tablet 0 mg PO PM Hold Instructions: Resume on 12/17/24. talk to your doctor whether or not to resume this in the future Rx Instructions: Note in system to resume on 12/17/24. Original Directions: Take 5mg w/ 2.5mg to equal 7.5mg by mouth once daily. hydroxychloroquine 200 mg tablet 200 mg PO PM mirtazapine 7.5 mg tablet 7.5 mg PO HS Qty: 30 2RF amlodipine 2.5 mg tablet 2.5 mg PO PM Qty: 0 0RF Admission Data Admit Date/Time: 11/20/24 11:45 Attending Provider: Beth Lr Admit Provider: Sebastian Carrizales Primary Care Provider: Eliel Lynn V. Other Providers: Sebastian Carrizales Hospital Stay Data Consultations 11/20/24 11:01 ED Decision to Admit Stat Diagnostic Imagining Performed 11/20/24 08:26 CT angio head w con Stat CT angio neck with con Stat CT head/brain wo con Stat Total Time Total Time Spent Total Time Spent (In Minutes): less than 30 minutes Coding Level of Care Code 61919 IN/OBS DISCH 30 MIN/LESS Diagnoses Acute gastroenteritis K52.9 Encephalopathy acute G93.40 Cognitive impairment R41.89 Hypokalemia E87.6 Hypomagnesemia E83.42 Elevated troponin I level R79.89 Rheumatoid arthritis M06.9 Acute dehydration E86.0
[2024-11-21 08:11] LABS: BUN Creatinine Ratio 14.7 (10-20); Calcium 8.7 mg/dl (8.6-10.3); Creatinine Clr Calc Pharmacy 51.9 ml/min; Magnesium 1.9 mg/dl (1.7-2.4); Phosphorus 2.3 mg/dl (2.5-4.9); Potassium 4.6 mmol/L (3.5-5.1)
[2024-11-21] MEDS: THIAMINE HCL 500 MG in SODIUM CHLORIDE 0.9% 50 ML IV SCH (08:13)
[2024-11-21] MEDS: cefTRIAXone SODIUM 2,000 MG/50 ML BAG IV SCH (10:47)
[2024-11-21] MEDS: CEFEPIME 2000MG 2,000 MG/20 ML SYR IV SCH (17:17)
--- NOTE | 2024-11-21 18:57 | Hospitalist Progress Note ---
Date of Service November 21, 2024 Assessment & Plan (1) Encephalopathy acute: (2) Cognitive impairment: (3) Hypokalemia: (4) Hypomagnesemia: (5) Elevated troponin I level: (6) Rheumatoid arthritis: (7) UTI (urinary tract infection): Plan 84-year-old woman admitted earlier this week with acute gastroenteritis and resultant dehydration and electrolyte depletion. Gastroenteritis resolved, electrolytes replaced and I sent her home with her son. Same evening began having hallucinations and increasing confusion. Brought back to ED next day. Admission UA abnormal (though better than all her previous UAs) with 4+ bacteria, thought to have UTI # Urinary tract infection - culture negative earlier this week and did get ceftriaxone, UA improved but culture growing Klebsiella aerogenes today. Discussed with pharmacist - this has inducible AmpC resistance so may not be susceptible - changed ABX to cefepime pending sensis -AM CBC, BMP # Acute metabolic encephalopathy - confusion, hallucinations # Cognitive impairment - likely Alzheimer's dementia though no formal diagnosis -admitting head CT negative, CTA head/neck notable for carotid stenoses, unrelated -cognition improved today, seems to be again at baseline -low dose seroquel resumed - I had not continued on discharge because of mildly prolonged QT and risk:benefit. Prefer this is a short course until she stabilizes at home -TSH wnl, B12 normal, check B1 and replace thiamine empirically IV # Steroid dependence - usual dose 5 mg prednisone does not typically cause adrenal suppression. AM cortisol 2.64 which is low. Several admissions lately with stress dose steroids so likely secondary. Will bump prednisone up to 20 mg and slowly taper. Unfortunately could provoke more hallucinations # Electrolyte depletion - hypomagnesemia, hypokalemia. Replaced on admission. Mag, K normal today -monitor, may need standing oral replacement # Acute deep vein thrombosis of both lower extremities: hospitalized in September 2024 at [facility] for extensive b/l LE DVTs (nearly the entire venous system) with extension of clot into the iliacs and IVC seen by vascular surgery - no filter recommended, no direct thrombolysis advised CTA chest negative for PEs continue apixaban lifelong for extensive clot # mildly elevated HS-troponin: chronic elevation, at baseline, no chest pain, EKG - nsr with pac's Recent echo 10/08/24 with EF 70% normal LV wall motion, mild conc LVH, grade 1 diastolic dysfunction, normal RSVP, no significant valvular disease # Rheumatoid arthritis: 5 mg prednisone chronically for RA. patient is on chronic prednisone therapy 5mg/day as well as plaquenil 200mg daily - continue no RA flare at this time # Hypertension: mildly hypotensive amlodipine held Earlier this week PT/OT recommended 24-hour support/ supervision and home health PT/OT was ordered. lives with her son. she refused SNF rehab Admission and Anticipated Discharge Date Admission Date: November 20, 2024 Subjective Blank is reasonably well oriented today and able to give recent history. Denies dysuria or abdominal pain. Nausea/vomiting/diarrhea resolved. She can't remember hallucinating. No evidence of hallucinations or confusion this AM Physical Exam 2 Physical Exam: PHYSICAL EXAMINATION Last 24h vital signs reviewed, see documentation in flowsheet General: aitting up awake in bed HEENT: Normocephalic, atraumatic, pupils round and equal, sclerae anicteric, no conjunctival injection, moist mucus membranes Lungs: Normal respiratory effort. Clear to auscultation bilaterally. No RRW Heart: Regular rate and rhythm, no murmurs. No JVD Abdomen: Soft, nontender, nondistended. Bowel sounds present. No SP tenderness Extremities: Warm, dry, well-perfused. No extremity edema. Neuro: Alert and oriented x self, hospital, basic situation, face symmetric, moves 4 extremities well Psych: Normal affect and behavior, not agitated and not having hallucinations Results & Data Results & Data Vital Signs (Past 12 Hours) Vital Signs Temp Pulse Resp BP Pulse Ox O2 Del Method 11/21/24 16:07 97.7 F 90 18 125/76 96 Room Air 11/21/24 09:34 98.4 F 77 18 98/62 L 92 Room Air Laboratory Results 11/21/24 07:01 11/21/24 07:01 PG Care Time/CCT Total # of Minutes Spent Total Time Spent with Patient: Total time spent is greater than 50% in coordination of care (as documented) at patient's floor/unit and/or counseling patient: Coding Level of Care Code 76811 SUB INP/OBS CARE 3/50MIN Diagnoses Encephalopathy acute G93.40 Cognitive impairment R41.89 Hypokalemia E87.6 Hypomagnesemia E83.42 Elevated troponin I level R79.89 Rheumatoid arthritis M06.9 UTI (urinary tract infection) N39.0
[2024-11-22] MEDS: predniSONE 20 MG TAB PO SCH (07:34)
[2024-11-22 07:51] LABS: BUN Creatinine Ratio 15.6 (10-20); Calcium 9.3 mg/dl (8.6-10.3); Creatinine Clr Calc Pharmacy 39.2 ml/min; Magnesium 2.1 mg/dl (1.7-2.4); Potassium 4.8 mmol/L (3.5-5.1)
[2024-11-22 08:25] LABS: IMP Carbapenemase NOT DETECTED (NotDetected); KPC Carbapenemase NOT DETECTED (NotDetected); NDM Carbapenemase NOT DETECTED (NotDetected); OXA48 Carbapenemase NOT DETECTED (NotDetected); VIM Carbapenemase NOT DETECTED (NotDetected)
--- NOTE | 2024-11-22 19:10 | Hospitalist Progress Note ---
Date of Service November 22, 2024 Assessment & Plan (1) Encephalopathy acute: (2) Cognitive impairment: (3) Hypokalemia: (4) Hypomagnesemia: (5) Elevated troponin I level: (6) Rheumatoid arthritis: (7) UTI (urinary tract infection): Plan 84-year-old woman admitted earlier this week with acute gastroenteritis and resultant dehydration and electrolyte depletion. Gastroenteritis resolved, electrolytes replaced and I sent her home with her son. Same evening began having hallucinations and increasing confusion. Brought back to ED next day. Admission UA abnormal (though better than all her previous UAs) with 4+ bacteria, thought to have UTI # Urinary tract infection - culture negative earlier this week and did get ceftriaxone, UA improved but culture growing Klebsiella aerogenes. Discussed with pharmacist - this has inducible AmpC resistance so may not be susceptible - changed ABX to cefepime pending sensis. this organism is sensitive to both ciprofloxacin and trim sulfa however she has historically developed significant nausea and vomiting within a few doses of oral antibiotics, continue cefepime for now -CBC, BMP reviewed today slight leukocytosis with white blood count of 11 likely related to prednisone otherwise unremarkable # Acute metabolic encephalopathy - confusion, hallucinations # Cognitive impairment - likely Alzheimer's dementia though no formal diagnosis -admitting head CT negative, CTA head/neck notable for carotid stenoses, unrelated - cognition significantly improved and is at baseline - continue low-dose Seroquel, I discussed the risks and benefits with Blank and her son including increased risk of in the elderly probably related to cardiac arrhythmia - we will plan a short course at discharge perhaps 2 weeks and then they can taper off of it and perhaps use as needed -TSH wnl, B12 normal, checked B1 and replacing thiamine empirically IV # Steroid dependence - usual dose 5 mg prednisone does not typically cause adrenal suppression. AM cortisol 2.64 which is low. Several admissions lately with stress dose steroids so likely secondary. bump prednisone up to 20 mg and slowly taper. # Electrolyte depletion - hypomagnesemia, hypokalemia. Replaced on admission, monitor. K and mag are both robust today -monitor, may need standing oral replacement - trial magnesium oxide 400 mg every morning see if she can tolerate # Acute deep vein thrombosis of both lower extremities: hospitalized in September 2024 at [facility] for extensive b/l LE DVTs (nearly the entire venous system) with extension of clot into the iliacs and IVC seen by vascular surgery - no filter recommended, no direct thrombolysis advised CTA chest negative for PEs continue apixaban lifelong for extensive clot was to follow-up with Dr. Lanza Ada # mildly elevated HS-troponin: chronic elevation, at baseline, no chest pain, EKG - nsr with pac's Recent echo 10/08/24 with EF 70% normal LV wall motion, mild conc LVH, grade 1 diastolic dysfunction, normal RSVP, no significant valvular disease # Rheumatoid arthritis: 5 mg prednisone chronically for RA. currently increased - see above patient is on chronic prednisone therapy 5mg/day as well as plaquenil 200mg daily - continue no RA flare at this time # Hypertension: mildly hypotensive, now normotensive, amlodipine held Earlier this week PT/OT recommended 24-hour support/ supervision and home health PT/OT was ordered. lives with her son. she refused SNF rehab -ordered PT/OT Admission and Anticipated Discharge Date Admission Date: November 20, 2024 Subjective Blank is doing much better today with even more improvement in her mental status by midday she does not have any further nausea vomiting or diarrhea no dysuria, she did have that earlier in the week Physical Exam 2 Physical Exam: PHYSICAL EXAMINATION Last 24h vital signs reviewed, see documentation in flowsheet General: awake in bed visiting with her son HEENT: Normocephalic, atraumatic, pupils round and equal, sclerae anicteric, no conjunctival injection, moist mucus membranes Lungs: Normal respiratory effort. Clear to auscultation bilaterally. No RRW Heart: Regular rate and rhythm, no murmurs. No JVD Abdomen: Soft, nontender, nondistended. Bowel sounds present. No SP tenderness Extremities: Warm, dry, well-perfused. No extremity edema. Neuro: Alert and oriented x self, hospital, situation, face symmetric, moves 4 extremities well Psych: Normal affect and behavior, no further hallucinations Results & Data Results & Data Vital Signs (Past 12 Hours) Vital Signs Temp Pulse Resp BP Pulse Ox O2 Del Method 11/22/24 08:18 97.2 F L 86 18 113/72 96 Room Air Laboratory Results 11/21/24 07:01 11/22/24 07:02 PG Care Time/CCT Total # of Minutes Spent Total Time Spent with Patient: Total time spent is greater than 50% in coordination of care (as documented) at patient's floor/unit and/or counseling patient: Coding Level of Care Code 32252 SUB INP/OBS CARE 2MIN Diagnoses Encephalopathy acute G93.40 Cognitive impairment R41.89 Hypokalemia E87.6 Hypomagnesemia E83.42 Elevated troponin I level R79.89 Rheumatoid arthritis M06.9 UTI (urinary tract infection) N39.0
[2024-11-23 07:36] LABS: BUN Creatinine Ratio 17.6 (10-20); Calcium 8.7 mg/dl (8.6-10.3); Creatinine Clr Calc Pharmacy 38.7 ml/min; Potassium 3.7 mmol/L (3.5-5.1)
[2024-11-23] MEDS: MAGNESIUM OXIDE 400 MG TAB PO SCH (07:55)
--- NOTE | 2024-11-23 17:38 | Hospitalist Progress Note ---
Date of Service November 23, 2024 Assessment & Plan (1) Encephalopathy acute: (2) Cognitive impairment: (3) Hypokalemia: (4) Hypomagnesemia: (5) Elevated troponin I level: (6) Rheumatoid arthritis: (7) UTI (urinary tract infection): Plan 84-year-old woman admitted earlier this week with acute gastroenteritis and resultant dehydration and electrolyte depletion. Gastroenteritis resolved, electrolytes replaced and I sent her home with her son. Same evening began having hallucinations and increasing confusion. Brought back to ED next day. Admission UA abnormal (though better than all her previous UAs) with 4+ bacteria, thought to have UTI # Urinary tract infection - culture negative earlier this week and did get ceftriaxone, UA improved but culture growing Klebsiella aerogenes. Discussed with pharmacist - this has inducible AmpC resistance so may not be susceptible - changed ABX to cefepime. R to CTX. this organism is sensitive to both ciprofloxacin and trim sulfa however she has historically developed significant nausea and vomiting within a few doses of oral antibiotics, continue cefepime for now - likely need to finish 5 day course in hospital # Acute metabolic encephalopathy - confusion, hallucinations # Cognitive impairment - likely Alzheimer's dementia though no formal diagnosis -admitting head CT negative, CTA head/neck notable for carotid stenoses, unrelated - cognition significantly improved and is at baseline - continue low-dose Seroquel, I discussed the risks and benefits with Blank and her son including increased risk of in the elderly probably related to cardiac arrhythmia - we will plan a short course at discharge perhaps 2 weeks and then they can taper off of it and perhaps use as needed -TSH wnl, B12 normal, checked B1 and replacing thiamine empirically IV # Steroid dependence - usual dose 5 mg prednisone does not typically cause adrenal suppression. AM cortisol 2.64 which is low. Several admissions lately with stress dose steroids so likely secondary. bumped prednisone up to 20 mg and slowly taper. # Electrolyte depletion - hypomagnesemia, hypokalemia. Had diarrhea earlier this week, replaced, but recurred even without diarrhea. Replaced on admission. - mag 2.0 today and K 3.7 but steep downtrend - continue magnesium oxide 400 mg every morning see if she can tolerate - added potassium 20 meq daily - monitor BMP, mag # Acute deep vein thrombosis of both lower extremities: hospitalized in September 2024 at [facility] for extensive b/l LE DVTs (nearly the entire venous system) with extension of clot into the iliacs and IVC seen by vascular surgery - no filter recommended, no direct thrombolysis advised CTA chest negative for PEs continue apixaban lifelong for extensive clot was to follow-up with Dr. Myla Caballero # mildly elevated HS-troponin: chronic elevation, at baseline, no chest pain, EKG - nsr with pac's Recent echo 10/08/24 with EF 70% normal LV wall motion, mild conc LVH, grade 1 diastolic dysfunction, normal RSVP, no significant valvular disease # Rheumatoid arthritis: 5 mg prednisone chronically for RA. currently increased - see above patient is on chronic prednisone therapy (home dose 5mg/day) as well as plaquenil 200mg daily - continue no RA flare at this time # Hypertension: mildly hypotensive, now normotensive, amlodipine held. She may not need the amlodipine any more. Earlier this week PT/OT recommended 24-hour support/ supervision and home health PT/OT was ordered. lives with her son. she refused SNF rehab -ordered PT/OT Admission and Anticipated Discharge Date Admission Date: November 20, 2024 Subjective Blank continues to do well, oriented to person hospital and basic situation which seems to be her baseline, not having hallucinations, no dysuria at this time Physical Exam 2 Physical Exam: PHYSICAL EXAMINATION Last 24h vital signs reviewed, see documentation in flowsheet General: napping in bed aroused easily. otherwise exam unchanged 11/23 HEENT: Normocephalic, atraumatic, pupils round and equal, sclerae anicteric, no conjunctival injection, moist mucus membranes Lungs: Normal respiratory effort. Clear to auscultation bilaterally. No RRW Heart: Regular rate and rhythm, no murmurs. No JVD Abdomen: Soft, nontender, nondistended. Bowel sounds present. No SP tenderness Extremities: Warm, dry, well-perfused. No extremity edema. Neuro: Alert and oriented x self, hospital, situation, face symmetric, moves 4 extremities well Psych: Normal affect and behavior, no further hallucinations Results & Data Results & Data Vital Signs (Past 12 Hours) Vital Signs Temp Pulse Pulse Resp BP BP Pulse Ox 11/23/24 16:00 97.5 F L 74 18 115/70 96 11/23/24 07:01 97.9 F 69 18 122/75 95 O2 Del Method 11/23/24 16:00 Room Air 11/23/24 07:01 Room Air Laboratory Results 11/21/24 07:01 11/23/24 06:44 magnesium is 2.0 PG Care Time/CCT Total # of Minutes Spent Total Time Spent with Patient: Total time spent is greater than 50% in coordination of care (as documented) at patient's floor/unit and/or counseling patient: Coding Level of Care Code 33907 SUB INP/OBS CARE 2/35MIN Diagnoses Encephalopathy acute G93.40 Cognitive impairment R41.89 Hypokalemia E87.6 Hypomagnesemia E83.42 Elevated troponin I level R79.89 Rheumatoid arthritis M06.9 UTI (urinary tract infection) N39.0
[2024-11-23] MEDS: POTASSIUM CHLORIDE 10 MEQ TABCR PO SCH (17:53)
[2024-11-24] MEDS: THIAMINE HCL 100 MG TAB PO SCH (11:37)
--- NOTE | 2024-11-24 20:14 | Hospitalist Progress Note ---
Date of Service November 24, 2024 Assessment & Plan (1) UTI (urinary tract infection): Plan: 2nd to Klebsiella aerogenes. inducible AmpC resistance so may not be susceptible to rocephin. thus, changed to IV cefepime on 11/21/24. today is day #4 of such. plan 5-7 day course of IV/PO abx then stop all Rx. (2) Encephalopathy acute: Plan: likely 2nd to #1 above - improved cont seroquel HS (3) Cognitive impairment: Plan: baseline dementia - suspected likely Alzheimer's dementia although no formal diagnosis could send to neurology post-d/c for formal eval head CT negative CTA head/neck notable for carotid stenoses but no Rx needed at this time continue low-dose Seroquel for now TSH wnl, B12 normal B1 level sent/pending on thiamine empirically while awaiting level (4) Hypokalemia: Plan: replaced resolved K level yesterday was wnl at 3.7 (5) Hypomagnesemia: Plan: last level was wnl at 2 (6) Elevated troponin I level: Plan: peak troponin 43 c/w myocardial demand ischemia in setting of #1 no evidence of ACS (7) Rheumatoid arthritis: Plan: on stress dose steroids with prednisone 20mg daily has had 3 days of 20mg will cut to 15mg tomorrow cont plaquenil 200mg daily (8) History of DVT (deep vein thrombosis): Plan: hospitalized in September 2024 at [facility] for extensive b/l LE DVTs (nearly the entire venous system) with extension of clot into the iliacs and IVC seen by vascular surgery - no filter recommended, no direct thrombolysis advised CTA chest negative for PEs continue apixaban lifelong for extensive clot f/u with cancer care clinic post-d/c (9) Hypertension: Plan: amlodipine remains on hold and BPs are acceptable w/o it cont to monitor Plan cont PT/OT dispo - home with son? Admission and Anticipated Discharge Date Admission Date: November 20, 2024 Subjective lying in bed comfortably states she is "ready for dinner" no agitation per nursing notes had soft brown stool earlier today Review of Systems Review of Systems: CV - no chest pain pulm - no dyspnea GI - no abd pain Physical Exam Physical Exam: gen - NAD, pleasant neck - no JVD mouth - MMM heart - irregular (extra beats), s1 s2 lungs - minimal rales b/l bases, otherwise CTA b/l abd - soft NT ND BS+ ext - no edema, pulses 2+ b/l Results & Data Results & Data Vital Signs (Past 12 Hours) Vital Signs Temp Pulse Pulse Resp BP Pulse Ox O2 Del Method 11/24/24 19:22 36.6 C 92 H 16 129/73 97 Room Air 11/24/24 15:13 36.6 C 89 16 118/75 98 Room Air PG Care Time/CCT Total # of Minutes Spent Total Time Spent with Patient: Total time spent is greater than 50% in coordination of care (as documented) at patient's floor/unit and/or counseling patient: Coding Level of Care Code 68445 SUB INP/OBS CARE 2/35MIN Diagnoses UTI (urinary tract infection) N39.0 Encephalopathy acute G93.40 Cognitive impairment R41.89 Hypokalemia E87.6 Hypomagnesemia E83.42 Elevated troponin I level R79.89 Rheumatoid arthritis M06.9 History of DVT (deep vein thrombosis) Z86.718 Hypertension I10
[2024-11-25] MEDS: CIPROFLOXACIN / D5W 400 MG/200 ML BAG IV SCH (16:48)
--- NOTE | 2024-11-25 19:32 | Hospitalist Progress Note ---
Date of Service November 25, 2024 Assessment & Plan (1) UTI (urinary tract infection): Plan: 2nd to Klebsiella aerogenes. inducible AmpC resistance so may not be susceptible to rocephin. thus, changed to IV cefepime on 11/21/24. today is day #5 of such. change cefepime to cipro IV to narrow the spectrum. (2) Encephalopathy acute: Plan: likely 2nd to #1 above - improved/resolved cont seroquel HS (3) Cognitive impairment: Plan: baseline dementia - suspected likely Alzheimer's dementia although no formal diagnosis could send to neurology post-d/c for formal eval head CT negative CTA head/neck notable for carotid stenoses but no Rx needed at this time continue low-dose Seroquel for now TSH wnl, B12 normal B1 level sent/pending on thiamine empirically while awaiting level (4) Hypokalemia: Plan: replaced resolved repeat BMP am (5) Hypomagnesemia: Plan: last level was wnl at 2 (6) Elevated troponin I level: Plan: peak troponin 43 c/w myocardial demand ischemia in setting of #1 no evidence of ACS (7) Rheumatoid arthritis: Plan: on stress dose steroids with prednisone 20mg daily will cut to 10mg tomorrow cont plaquenil 200mg daily (8) History of DVT (deep vein thrombosis): Plan: hospitalized in September 2024 at [facility] for extensive b/l LE DVTs (nearly the entire venous system) with extension of clot into the iliacs and IVC seen by vascular surgery - no filter recommended, no direct thrombolysis advised CTA chest negative for PEs continue apixaban lifelong for extensive clot f/u with cancer care clinic post-d/c (9) Hypertension: Plan: amlodipine remains on hold and BPs are acceptable w/o it cont to monitor (10) Dysphagia: Plan: had speech eval about 1 week ago in light of ongoing symptoms and son's observations will ask speech to consider video swallow Plan cont PT/OT dispo - home with son - hopefully tomorrow Admission and Anticipated Discharge Date Admission Date: November 20, 2024 Subjective son at bedside during the visit he states "how good she looks and how good she is doing" excellent appetite son does notice difficulty swallowing/choking with his mom about 2-3x's each week at home during the visit today she took a sip of water and coughed following such and had to clear her throat no other issues Review of Systems Review of Systems: cv - no chest pain pulm - no dyspnea GI - no abd pain or N/V Physical Exam Physical Exam: gen - NAD, pleasant, lying in bed comfortably neck - no JVD mouth - MMM heart - irregular (extra beats), s1 s2, no murmur lungs - minimal rales b/l bases, otherwise CTA b/l abd - soft NT ND BS+ ext - no edema, pulses 2+ b/l Results & Data Results & Data Vital Signs (Past 12 Hours) Vital Signs Temp Pulse Resp BP Pulse Ox O2 Del Method 11/25/24 15:30 36.3 C L 77 18 121/72 95 Room Air 11/25/24 07:54 36.6 C 74 18 123/71 96 Room Air 11/25/24 07:35 Room Air PG Care Time/CCT Total # of Minutes Spent Total Time Spent with Patient: Total time spent is greater than 50% in coordination of care (as documented) at patient's floor/unit and/or counseling patient: Coding Level of Care Code 02958 SUB INP/OBS CARE 2/35MIN Diagnoses UTI (urinary tract infection) N39.0 Encephalopathy acute G93.40 Cognitive impairment R41.89 Hypokalemia E87.6 Hypomagnesemia E83.42 Elevated troponin I level R79.89 Rheumatoid arthritis M06.9 History of DVT (deep vein thrombosis) Z86.718 Hypertension I10 Dysphagia R13.10
[2024-11-26 06:39] LABS: Calcium 9.1 mg/dl (8.6-10.3); Potassium 3.7 mmol/L (3.5-5.1)
--- NOTE | 2024-11-26 07:43 | CT Scan Report ---
EXAM: CT head/brain wo con CLINICAL HISTORY: s/p fall this morning, laceration to forehead PW TECHNIQUE: Axial non-contrast CT scan of the brain was performed from the skull base to the high parietal region. One of the following dose reduction techniques were utilized for this exam: Automated exposure control, adjustment of the mA and/or kV according to patient size, use of iterative reconstruction. COMPARISON: prior study dated 11/20/2024. FINDINGS: New right frontal cephalohematoma measuring about 5.3 x 0.8 cm. Brain Parenchyma: Diffuse periventricular and deep white matter hypodensity, likely due to small vessel ischemic vasculopathy related changes noted bilateral basal ganglia senile calcification No evidence of acute infarct, hemorrhage, or mass effect. No abnormal areas of hyperattenuation. OBX.5.1OBX.5.1.1Ventricular System /OBX.5.1.1OBX.5.1.2 Subarachnoid Spaces:/OBX.5.1.2/OBX.5.1 Age related involutional brain changes seen as dilated ventricular system and prominent CSF spaces No evidence of subarachnoid hemorrhage or extra-axial fluid collections. Cerebellum and Brainstem: Normal size and signal. No masses, lesions, or areas of abnormal signal. Orbits: Normal appearance of the globes, optic nerves, and extraocular muscles. No evidence of orbital masses or abnormal signal. Sinuses: Clear paranasal sinuses. No evidence of sinusitis or mucosal thickening. Mastoid Air Cells: Clear mastoid air cells. No evidence of mastoiditis. Skull: Normal skull morphology. IMPRESSION: 1. New right frontal cephalohematoma measuring about 5.3x0.8cm. 2. No intra or extra-axial hematoma. 3. No skull fracture. 4. Small vessel ischemic vasculopathy related changes (stable). 5. Age related involutioanl brain changes (stable). 6. Bilateral basal ganglia senile calcification (stable). Electronically signed by Nina Davis 11-26-2024 07:42 AM
--- NOTE | 2024-11-26 08:16 | XRay Report ---
EXAM: XR knee RT 1 or 2V routine CLINICAL HISTORY: RIGHT KNEE PAIN FALL KAA/KAB TECHNIQUE: X-ray images of the right knee were obtained in anteroposterior (AP), and lateral projections. COMPARISON: No prior studies available for comparison. FINDINGS: Bone Structure: Bone structure is normal and well-aligned. No evidence of acute fractures or dislocations. No osseous lesions or abnormalities identified. Joint Spaces: Mild osteoarthritic changes seen as marginal osteophytes and subchondral sclerosis. No significant narrowing of the medial or lateral compartments. Articular Surfaces: Articular surfaces are smooth and intact. No signs of osteophyte formation or subchondral sclerosis. Patella: Patella is normal in position and alignment. No evidence of patellar dislocation or subluxation. Soft Tissues: Periarticular soft tissues appear normal and unremarkable. No soft tissue swelling, calcifications, or foreign bodies noted. Additional Findings: No signs of degenerative changes, such as osteoarthritis or inflammatory arthropathy. No evidence of joint effusion. IMPRESSION: 1. 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 2. No evidence of acute fractures or dislocations. Disclaimer: A subtle bone abnormality or fracture may not be readily apparent on X-rays, thus clinical correlation and further imaging including follow-up CT, MRI, or follow-up X-rays are advised as needed. Electronically signed by Nina Davis 11-26-2024 08:16 AM
[2024-11-26] MEDS: predniSONE 10 MG TABLET PO SCH (10:19)
[2024-11-26] MEDS: SODIUM CHLORIDE 0.9% 500 ML IV ONE (13:46)
--- NOTE | 2024-11-26 14:54 | Fluoroscopy Report ---
FL video swallow CLINICAL HISTORY: r/o aspiration. TECHNIQUE: Video fluoroscopic evaluation of swallowing was performed in the AP and lateral projection s by the speech pathology staff. The patient is fed nectar-thick and thin liquid barium, a barium coa debora wafer, and barium pudding. FLUOROSCOPY TIME: 1.1 minute. COMPARISON: None FINDINGS: There is a Zenker's diverticulum which contains debris or retained piece of food. There was no aspiration with any barium consistency. IMPRESSION: 1. No aspiration seen. 2. Zenker's diverticulum with retained debris or food. ACT 112: Negative or not required by law. Electronically signed by: Ishmael Esparza M.D. 11/26/2024 2:53 PM
--- NOTE | 2024-11-26 19:14 | Hospitalist Progress Note ---
Date of Service November 26, 2024 Assessment & Plan (1) Fall: Plan: unwitnessed this am, 11/26 associated head injury with resulting large bruise R forehead; CT head w/o ICH fortunately associated right knee skin tear; x-rays of R knee neg for fracture no other injuries fortunately HOLDING ELIQUIS due to the large forehead hematoma - but ideally we do not hold long due to the extent of her clot burden in her legs she has +orthostatics today --> 500cc NS bolus followed by 500cc more of IV fluids ice for head ice for R knee optifoam to R knee skin tear fall precautions (2) Head injury: Plan: 2nd to fall as in #[address] head negative no c-spine pain on exam (3) Dysphagia: Plan: s/p video swallow today with Zenker's diverticulum identified see #4 below (4) Zenker's diverticulum: Plan: seen on video swallow will ask GI to consult in am for their opinion need for EGD while hospitalized or defer to outpatient setting? not a great candidate for Rx due to recent extensive DVTs of legs, chronic Eliquis use, etc. (5) UTI (urinary tract infection): Plan: 2nd to Klebsiella aerogenes. inducible AmpC resistance so may not be susceptible to rocephin. thus, changed to IV cefepime on 11/21/24. then changed cefepime to cipro IV 11/26/24. day #6 of Rx. plan 7 days of Rx then stop all abx. (6) Encephalopathy acute: Plan: likely 2nd to #1 above - improved/resolved cont seroquel HS (7) Cognitive impairment: Plan: baseline dementia - suspected likely Alzheimer's dementia although no formal diagnosis could send to neurology post-d/c for formal eval head CT negative CTA head/neck notable for carotid stenoses but no Rx needed at this time continue low-dose Seroquel for now TSH wnl, B12 normal B1 level sent/pending on thiamine empirically while awaiting level (8) Hypokalemia: Plan: replaced resolved (9) Hypomagnesemia: Plan: mag levels wnl last few checks (10) Elevated troponin I level: Plan: peak troponin 43 c/w myocardial demand ischemia in setting of #1 no evidence of ACS (11) Rheumatoid arthritis: Plan: on stress dose steroids with prednisone 20mg daily will cut to 10mg today cont plaquenil 200mg daily (12) History of DVT (deep vein thrombosis): Plan: hospitalized in September 2024 at [facility] for extensive b/l LE DVTs (nearly the entire venous system) with extension of clot into the iliacs and IVC seen by vascular surgery - no filter recommended, no direct thrombolysis advised CTA chest negative for PEs continue apixaban lifelong for extensive clot (will hold today due to head injury with hematoma) f/u with cancer care clinic post-d/c (13) Hypertension: Plan: amlodipine remains on hold and BPs are acceptable w/o it --> and she is orthostatic cont to monitor Plan cont PT/OT fall precautions dispo - home with son await GI consult tomorrow Admission and Anticipated Discharge Date Admission Date: November 20, 2024 Subjective early this am, ~0500, patient by report had gotten out of bed and walked to the bathroom she was found on the floor by staff patient can't give full details about her fall, but thinks her "leg got caught" on something leading to the fall she denies dizziness or lightheadedness denies hip pain hit her head this am with the fall but denies headache denies any arm pain denies leg pains except the right knee eating well - 100% of meals Review of Systems Review of Systems: cv - no chest pain pulm - no dyspnea GI - no N/V or abd pain Physical Exam Physical Exam: gen - NAD, pleasant, sitting in chair head - large bruise right forehead, no deformity of skull neck - no JVD, no tenderness to c-spine with palpation; full ROM present mouth - MMM heart - irregular (extra beats), s1 s2, no murmur lungs - minimal rales b/l bases, otherwise CTA b/l abd - soft NT ND BS+ ext - no edema, pulses 2+ b/l musculo - bruise present right anterior knee; full active ROM of right knee without pain; full passive ROM of both hips; no trauma to either arm neuro - strength 5/5 x 4 exts; no facial droop; speech clear/fluent skin - minor skin tear anterior right knee spine - no tenderness to palpation over t-spine & l-spine Results & Data Results & Data Vital Signs (Past 12 Hours) Vital Signs Temp Pulse Resp BP Pulse Ox O2 Del Method 11/26/24 15:24 36.4 C L 76 20 114/70 96 Room Air 11/26/24 07:19 36.4 C L 64 20 110/67 96 Room Air Laboratory Results Laboratory Results - last 24 hr 11/26/24 06:04 Sodium 138 Potassium 3.7 Chloride 108 H Carbon Dioxide 22 Anion Gap 8 BUN 21 Creatinine 0.75 Est Cr Clr Drug Dosing 47.0 eGFR 78.95 BUN/Creatinine Ratio 28.0 H Glucose 109 H Calcium 9.[address] 11/26/24 05:55 EXAM: CT head/brain wo con CLINICAL HISTORY: s/p fall this morning, laceration to forehead PW TECHNIQUE: Axial non-contrast CT scan of the brain was performed from the skull base to the high parietal region. One of the following dose reduction techniques were utilized for this exam: Automated exposure control, adjustment of the mA and/or kV according to patient size, use of iterative reconstruction. COMPARISON: prior study dated 11/20/2024. FINDINGS: New right frontal cephalohematoma measuring about 5.3 x 0.8 cm. Brain Parenchyma: Diffuse periventricular and deep white matter hypodensity, likely due to small vessel ischemic vasculopathy related changes noted bilateral basal ganglia senile calcification No evidence of acute infarct, hemorrhage, or mass effect. No abnormal areas of hyperattenuation. OBX.5.1OBX.5.1.1Ventricular System /OBX.5.1.1OBX.5.1.2 Subarachnoid Spaces:/OBX.5.1.2/OBX.5.1 Age related involutional brain changes seen as dilated ventricular system and prominent CSF spaces No evidence of subarachnoid hemorrhage or extra-axial fluid collections. Cerebellum and Brainstem: Normal size and signal. No masses, lesions, or areas of abnormal signal. Orbits: Normal appearance of the globes, optic nerves, and extraocular muscles. No evidence of orbital masses or abnormal signal. Sinuses: Clear paranasal sinuses. No evidence of sinusitis or mucosal thickening. Mastoid Air Cells: Clear mastoid air cells. No evidence of mastoiditis. Skull: Normal skull morphology. IMPRESSION: 1. New right frontal cephalohematoma measuring about 5.3x0.8cm. 2. No intra or extra-axial hematoma. 3. No skull fracture. 4. Small vessel ischemic vasculopathy related changes (stable). 5. Age related involutioanl brain changes (stable). 6. Bilateral basal ganglia senile calcification (stable). Electronically signed by Nina Davis 11-26-2024 07:42 AM Knee X-Ray 11/26/24 05:55 EXAM: XR knee RT 1 or 2V routine CLINICAL HISTORY: RIGHT KNEE PAIN FALL KAA/KAB TECHNIQUE: X-ray images of the right knee were obtained in anteroposterior (AP), and lateral projections. COMPARISON: No prior studies available for comparison. FINDINGS: Bone Structure: Bone structure is normal and well-aligned. No evidence of acute fractures or dislocations. No osseous lesions or abnormalities identified. Joint Spaces: Mild osteoarthritic changes seen as marginal osteophytes and subchondral sclerosis. No significant narrowing of the medial or lateral compartments. Articular Surfaces: Articular surfaces are smooth and intact. No signs of osteophyte formation or subchondral sclerosis. Patella: Patella is normal in position and alignment. No evidence of patellar dislocation or subluxation. Soft Tissues: Periarticular soft tissues appear normal and unremarkable. No soft tissue swelling, calcifications, or foreign bodies noted. Additional Findings: No signs of degenerative changes, such as osteoarthritis or inflammatory arthropathy. No evidence of joint effusion. IMPRESSION: 1. 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 2. No evidence of acute fractures or dislocations. Disclaimer: A subtle bone abnormality or fracture may not be readily apparent on X-rays, thus clinical correlation and further imaging including follow-up CT, MRI, or follow-up X-rays are advised as needed. Electronically signed by Nina Davis 11-26-2024 08:16 AM Videofluoroscopic Swallow 11/26/24 13:00 FL video swallow CLINICAL HISTORY: r/o aspiration. TECHNIQUE: Video fluoroscopic evaluation of swallowing was performed in the AP and lateral projections by the speech pathology staff. The patient is fed nectar-thick and thin liquid barium, a barium coated wafer, and barium pudding. FLUOROSCOPY TIME: 1.1 minute. COMPARISON: None FINDINGS: There is a Zenker's diverticulum which contains debris or retained piece of food. There was no aspiration with any barium consistency. IMPRESSION: 1. No aspiration seen. 2. Zenker's diverticulum with retained debris or food. ACT 112: Negative or not required by law. Electronically signed by: Ishmael Esparza M.D. 11/26/2024 2:53 PM PG Care Time/CCT Total # of Minutes Spent Total Time Spent with Patient: Total time spent is greater than 50% in coordination of care (as documented) at patient's floor/unit and/or counseling patient: Coding Level of Care Code 19013 SUB INP/OBS CARE 3/50MIN Diagnoses Fall W19.XXXA Head injury S09.90XA Dysphagia R13.10 Zenker's diverticulum K22.5 UTI (urinary tract infection) N39.0 Encephalopathy acute G93.40 Cognitive impairment R41.89 Hypokalemia E87.6 Hypomagnesemia E83.42 Elevated troponin I level R79.89 Rheumatoid arthritis M06.9 History of DVT (deep vein thrombosis) Z86.718 Hypertension I10
[2024-11-26] MEDS: SODIUM CHLORIDE 0.9% 500 ML IV SCH (21:01)
[2024-11-27 07:41] VITALS: O2SAT 96
[2024-11-27] MEDS: PANTOprazole 40 MG TAB PO SCH (09:07)
--- NOTE | 2024-11-27 09:21 | Gastrointestinal Consultation ---
Date of Consultation November 27, 2024 Assessment & Plan (1) Zenker's diverticulum: 84 year old female w/ history of bilateral DVT September 2024 on chronic Eliquis therapy, RA, osteopenia, hypertension, cogitative impairment and others below admitted w/ UTI and management of fall - GI was asked to evaluate for dysphagia - report of both solid's/liquids sticking for quite some time. Video swallow w/ evidence of Zenker's diverticulum w/o aspiration. She tolerated breakfast this AM. Soft, slippery diet as tolerated Plan for outpatient EGD to rule out other etiology of dysphagia Appropriate referral for Zenker's treatment pending EGD results I spent a total of 60 minutes on the date of service in review of patient's record, and previously obtained information in person and appropriate medical visit, discussion and education of plan, with patient and/or caregiver, placing orders for tests/referral/procedures as medically necessary and documentation of pertinent clinical information in patient's medical records for their visit today. Thank you for allowing us to participate in the care of this patient. Please call with any acute changes, questions or concerns. Please see addendum below with additional recommendation from my supervising physician. Supervising Physician Co-Signing Physician Notes I personally saw and examined the patient. I have reviewed the chart and agree with the documentation provided by the DEBURRER MACHINE including discussion about the assessment, treatment and plan. Briefly, 84 year old female w/ history of bilateral DVT September 2024 on chronic Eliquis therapy, RA, osteopenia, hypertension, cogitative impairment and others below admitted w/ UTI and management of fall. GI was asked to evaluate for dysphagia. Pt was seen and evaluated, chart reviewed. She is somewhat of a poor historian. She cannot recall how long she has been experiencing difficultly with oral intake but she suggests its been some time. Reports sensation of sticking to both solids and liquids. Notes the debris will sit for a few moments then empty. Denies any coughing with oral intake. No report of GERD. No nausea/vomiting. No reflux/regurgitation. No fever, chills, CP, SOB. Video swallow 2024: There is a Zenker's diverticulum which contains debris or retained piece of food. There was no aspiration with any barium consistency. Patient already ate today but will need an endoscopy to rule out any distal stricture. As she does have some solid and liquid dysphagia. I suspect she has a presbyesophagus. If this is negative she can get a repair of her Zenker's by Dr. Yoo at [facility]. We have arranged for the outpatient EGD. GI will sign off please call with any questions History of Present Illness Reason for Consultation: zenker's diverticulum Requesting Physician: Sebastian Mondragon MD Attending Physician: Sebastian Mondragon MD History of Present Illness 84 year old female w/ history of bilateral DVT September 2024 on chronic Eliquis therapy, RA, osteopenia, hypertension, cogitative impairment and others below admitted w/ UTI and management of fall. GI was asked to evaluate for dysphagia. Pt was seen and evaluated, chart reviewed. She is somewhat of a poor historian. She cannot recall how long she has been experiencing difficultly with oral intake but she suggests its been some time. Reports sensation of sticking to both solids and liquids. Notes the debris will sit for a few moments then empty. Denies any coughing with oral intake. No report of GERD. No nausea/vomiting. No reflux/regurgitation. No fever, chills, CP, SOB. Video swallow 2024: There is a Zenker's diverticulum which contains debris or retained piece of food. There was no aspiration with any barium consistency. EGD: none Colonoscopy: she cannot recall previous examinations Allergies Allergy/AdvReac Type Severity Reaction Status Date / Time No Known Drug Allergies Allergy Unknown . Verified 11/02/24 13:18 Home Medications Medication Instructions Recorded Confirmed Type amlodipine 5 mg tablet 0 mg PO PM 09/19/24 11/20/24 History hydroxychloroquine 200 mg tablet 200 mg PO PM 09/19/24 11/20/24 History prednisone 5 mg tablet 5 mg PO PM 09/19/24 11/20/24 History cholecalciferol (vitamin D3) 125 5,000 unit PO PM #90 caps 09/29/24 11/20/24 Rx mcg (5,000 unit) capsule cyanocobalamin (vitamin B-12) 1,000 mcg PO HS 10/07/24 11/20/24 History 1,000 mcg tablet (Vitamin B-12) apixaban 5 mg tablet (Eliquis) 5 mg PO BID #60 tabs 10/15/24 11/20/24 Rx amlodipine 2.5 mg tablet 2.5 mg PO PM #0 tabs 11/19/24 11/20/24 Rx mirtazapine 7.5 mg tablet 7.5 mg PO HS #30 tabs 11/19/24 11/20/24 Rx Patient History Medical History Acute deep vein thrombosis of both lower extremities 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 Vitamin B12 deficiency Multiple thyroid nodules Osteoporosis SNHL (sensorineural hearing loss) Secondary hyperparathyroidism Vitamin D deficiency disease Aortic arch atherosclerosis Current chronic use of systemic steroids Elevated lactic acid level MGUS (monoclonal gammopathy of unknown significance) Surgical History S/P tubal ligation S/P tonsillectomy Family History Father Congestive heart failure Myocardial infarction Other Breast cancer Denies family history of Ovarian cancer Prostate cancer Colorectal cancer Social History Smoking Status: Former smoker Tobacco Type: Cigarettes Second Hand Exposure: No; Do You Dip or Chew Tobacco: No; Hx Alcohol Use: Yes Alcohol type: wine Hx Substance Use: No Preferred Language: Greek Communication Ability: Effective Visual Impairment: No Limitations Hearing Ability: Normal Leather Etcher Required: No Beliefs That Will Affect Care: None marital status: / Current Living Situation: Alone Current Living Situation Comment: son lives across the street current occupational status: retired Feels Safe at Home: Yes Dental Care, Regularly: Yes Physical Activity Frequency: Does not Exercise Seatbelt Use: always Assistive Devices: Cane, Walker and Other Review of Systems Review of Systems: All other findings negative except as noted in HPI. Physical Exam Constitutional: WD/WN, vitals as above Respiratory: normal respiratory effort Cardiovascular: Rate/Rhythm: regular rate Gastrointestinal (Abdomen): normal bowel sounds, soft, nontender, no hepatosplenomegaly Skin: no rashes, warm and dry Results & Data Vital Signs (Past 12 Hours) Vital Signs Temp Pulse Pulse Resp BP Pulse Ox O2 Del Method 11/27/24 07:40 97.5 F L 73 17 150/80 H 96 Room Air 11/26/24 23:27 97.7 F 93 H 18 161/86 H 97 Room Air Laboratory Results 11/21/24 Range/Units 08:02 Whole Bld Vitamin B1 87 (78-185) nmol/L PG Care Time/CCT Total # of Minutes Spent Total Time Spent with Patient: Total time spent is greater than 50% in coordination of care (as documented) at patient's floor/unit and/or counseling patient: Coding Level of Care Code 36842 INT INP/OBS CARE 2/55MIN Diagnoses Zenker's diverticulum K22.5
--- NOTE | 2024-11-27 13:18 | CT Scan Report ---
CT facial bones wo con CLINICAL HISTORY: recent head injury, b/l maxillary pain. COMPARISON STUDY: Head CT dated 11/26/2024 TECHNIQUE: High-resolution CT scan of the facial bones is performed. Images are reviewed in the axia l, sagittal, and coronal planes. IV contrast was not administered for this examination. A dose lower ing technique was utilized adhering to the principles of ALARA. CT DOSE: 611.96 mGy.cm FINDINGS: There is no evidence of facial bone fracture. 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 There is mi nor mucosal thickening in the right maxillary antrum and the sphenoid sinus. The orbits are intact. T he mandible and alveolar ridge are intact. 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 The epiglottis is not sw ollen. There is no prevertebral soft tissue swelling. There is severe lower cervical spondylosis and a C4 on C5 anterior subluxation which has been seen previously. IMPRESSION: No evidence of a recent facial bone trauma. ACT 112: Negative or not required by law. The above report was generated using voice recognition software. It may contain grammatical, syntax o r spelling errors. Electronically signed by: Josy Monet M.D. 11/27/2024 1:17 PM
[2024-11-27 15:17] VITALS: BP 156/85; RESP 18; TEMP 97.3
--- NOTE | 2024-11-27 16:10 | Discharge Summary ---
Discharge Summary Date of Service November 27, 2024 Principal Dx & Hospital Course #1 = Principal Diagnosis (1) Fall: unwitnessed this am, 11/26 associated head injury with resulting large bruise R forehead; CT head w/o ICH fortunately associated right knee skin tear; x-rays of R knee neg for fracture no other injuries fortunately HOLDING ELIQUIS due to the large forehead hematoma - but ideally we do not hold long due to the extent of her clot burden in her legs she has +orthostatics today --> 500cc NS bolus followed by 500cc more of IV fluids ice for head ice for R knee optifoam to R knee skin tear fall precautions (2) Head injury: 2nd to fall as in #[address] head negative no c-spine pain on exam (3) Dysphagia: s/p video swallow today with Zenker's diverticulum identified see #4 below (4) 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 not a great candidate for Rx due to recent extensive DVTs of legs, chronic Eliquis use, etc. (5) UTI (urinary tract infection): 2nd to Klebsiella aerogenes. inducible AmpC resistance so may not be susceptible to rocephin. thus, changed to IV cefepime on 11/21/24. then changed cefepime to cipro IV 11/26/24. day #6 of Rx. plan 7 days of Rx then stop all abx. (6) Encephalopathy acute: likely 2nd to #1 above - improved/resolved cont seroquel HS (7) Cognitive impairment: baseline dementia - suspected likely Alzheimer's dementia although no formal diagnosis could send to neurology post-d/c for formal eval head CT negative CTA head/neck notable for carotid stenoses but no Rx needed at this time continue low-dose Seroquel for now TSH wnl, B12 normal B1 level sent/pending on thiamine empirically while awaiting level (8) Hypokalemia: replaced resolved (9) Hypomagnesemia: mag levels wnl last few checks (10) Elevated troponin I level: peak troponin 43 c/w myocardial demand ischemia in setting of #1 no evidence of ACS (11) Rheumatoid arthritis: on stress dose steroids with prednisone 20mg daily will cut to 10mg today cont plaquenil 200mg daily (12) History of DVT (deep vein thrombosis): hospitalized in September 2024 at [facility] for extensive b/l LE DVTs (nearly the entire venous system) with extension of clot into the iliacs and IVC seen by vascular surgery - no filter recommended, no direct thrombolysis advised CTA chest negative for PEs continue apixaban lifelong for extensive clot (will hold today due to head injury with hematoma) f/u with cancer care clinic post-d/c (13) Hypertension: amlodipine remains on hold and BPs are acceptable w/o it --> and she is orthostatic cont to monitor Plan cont PT/OT fall precautions dispo - home with son await GI consult tomorrow Admission HPI Per Admitting Provider Patient is an 84-year-old female with 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 She has had recurring admissions this August 2024 with confusion secondary to and infections. She wasdischarged from the hospital yesterday 11/19 after being admitted for electrolyte abnormalities secondary to gastroenteritis. She was to have home health PT/OT. She was brought in by EMS today due to confusion and hallucinations noted by her son. She was found to have UTI in the ED is being admitted for confusion. Patient seen at bedside with her son present. She lives at home with her other son who has Parkinson's; he lives downstairs and she lives upstairs. The son present at bedside lives across the street and checks in on them frequently. Her son picked her up from the hospital around 3 PM yesterday, her mentation was well and at baseline. On the way home she started asking about her uncle who has been for approximately 20 years, she also was hearing music however no music was playing in the car. When they arrived at home the music continued throughout the evening and she started seeing her mother in the house. Her appetite was well yesterday and she ate 2 slices of pizza for dinner, however said that it was goat soup. She went to bed around 9 PM and when she woke up this morning she said that she was in a farm house and playing with imaginary kids. Despite the confusion at home overnight, she was still able to care for herself and change her close, which she has had difficulty with recently. With her previous admission she had confusion but has never had hallucinations. Her baseline is alert and oriented x 4. It is noted that during recent admission she was started on Seroquel at bedtime, but was never continued on this at home. When she was at home over the holidays, she was at her baseline mentation and ambulating well. Her episodes of confusion requiring hospitalization recently been secondary to UTI and then pneumonia. When she was discharged on an oral antibiotic, her son notes that she has a poor appetite and does not eat well at home, which resulted in her most recent admission. His goal is to have her treated for UTI during inpatient stay, would prefer to not have her discharged home on oral antibiotics. The patient overall has no complaints. ER provider stated she thought she was in a fire paulino earlier. On admission exam, alert and oriented x 4. Her son stated she is improved after receiving 1 dose of IV antibiotics. She denies fevers, chills, chest pain, shortness of breath, abdominal pain, nausea, vomiting, recent diarrhea, dysuria, hematuria. When she went home last night, the only medication she took was her evening Eliquis as she was not sure which she received in the hospital. She did not take her morning medications yet today; ordered on admission. She wishes to be full code at this time, discussed with patient's son at bedside he agrees. Handoff from the ER provider and case management notes stated that EMS to place report to office of aging due to living conditions in the patient's home. Discharge Exam gen - NAD, pleasant, sitting in chair head - large bruise right forehead, no deformity of skull neck - no JVD, no tenderness to c-spine with palpation; full ROM present mouth - MMM heart - irregular (extra beats), s1 s2, no murmur lungs - minimal rales b/l bases, otherwise CTA b/l abd - soft NT ND BS+ ext - no edema, pulses 2+ b/l musculo - bruise present right anterior knee; full active ROM of right knee without pain; full passive ROM of both hips; no trauma to either arm neuro - strength 5/5 x 4 exts; no facial droop; speech clear/fluent skin - minor skin tear anterior right knee spine - no tenderness to palpation over t-spine & l-spine Discharge Plan Discharge Items Patient Disposition: Home - Home Health Services Reason For Visit: UTI, CONFUSION Discharge Diagnosis: 1. urinary tract infection - resolved 2. confusion due to #1 - resolved 3. dysphagia (mild difficulty swallowing) - likely due to Zenker's diverticulum 4. Zenker's diverticulum (suspected) 5. fall with head injury 6. right knee contusion with skin tear 7. right forehead contusion 8. rheumatoid arthritis on chronic prednisone Activity: Resume your previous activity Non-emergency contact: Primary Care Provider and Single Needle Operator Call non-emergency contact if: you have any medication questions, your symptoms worsen and you have a fever Follow-up/Referrals: Sixto Jimenez, [Physician] - (you will need to see Dr Jimenez at [facility] to have upper endoscopy (EGD); we will make a referral for you ) Eliel Lynn MD [Primary Care Provider] - 12/02/24 11:20 am (1 week ) Diet: Regular Diet Comment: SLIPPERY consistency Addtl Attending Provider Instructions: Ms Farias, You were hospitalized for a urinary tract infection. You completed 7 full days of IV antibiotics during the stay. During the hospitalization you suffered a fall while walking to the bathroom. Unfortunately you hit your head and also hit your right knee. CT head did NOT show any blood in the brain. You had no fractures of the skull bone. The CT did show a hematoma (bruise) over the right forehead. X-rays of the right knee did NOT show fractures. You do have a small skin tear over the right knee from the fall. CT scan of your facial bones did NOT show any facial fractures. Finally, we performed a video swallow test to ensure you were swallowing normally. This was done because we noticed you would cough after drinking fluids. The video test showed that you likely have a condition called "Zenker's diverticulum." This is when a pouch forms from the wall of the esophagus. Food & beverage can enter the pouch and become temporarily stuck there. [facility] saw you and they plan to do outpatient upper endoscopy to look at the Zenker's in more detail. Speech has recommended a "slippery" diet to allow safer swallowing. Please see their instructions. Recommendations - 1. HOLD your Eliquis tonight; resume the AM of 11/28/24. 2. Ice to your forehead hematoma/bruise as often as possible over the next 3-4 days. After 3-4 days you can switch to heat to promote resolution. 3. Ice to your right knee for the next 3-4 days. 4. Optifoam dressing (or similar) - place on the skin tear near the knee, change the dressing every 48 hours and as needed. 5. Seroquel (quetiapine) - 12.5mg at bedtime. I would recommend taking this for the next 2-3 days, then trying to stop it and just using as needed thereafter. 6. Pantoprazole 40mg once daily each morning for your esophagus/stomach. This is an acid pig iron loader. 7. Take 10mg of prednisone each day on 11/28/24, 11/29/24, and 11/30/24. Then, starting 12/01/24, resume your usual dose of prednisone 5mg daily. 8. Use your walker at all times for ambulation in your house and when you leave your home. This will make your walking safer and reduce the risk of falls. 9. STOP your amlodipine. Your blood pressures were generally ok without the use of this medicine. If you have a blood pressure cuff at home please check your blood pressure daily and write these numbers in a notebook to show to your family doctor. Follow-up - see separate section Return to [facility] if - * you have fevers over 100 degrees * you have shortness of breath * you have chest pains * you have severe diarrhea (more than 3 liquid stools in 24 hours) * you have severe headaches * any other concerns It was our pleasure to care for you! -Dr Mondragon Pending Studies at Discharge: No Stand-Alone Forms: [facility], Smoking Cessation Medications and DC Order Prescriptions: New quetiapine 25 mg Tablet 12.5 mg PO HS Qty: 14 0RF pantoprazole 40 mg Tablet,Delayed Release (Dr/Ec) 40 mg PO QAM Qty: 30 2RF Continued cholecalciferol (vitamin D3) 125 mcg (5,000 unit) capsule 5,000 unit PO PM Qty: 90 3RF Rx Instructions: Unable to verify OTC meds at this date/time. cyanocobalamin (vitamin B-12) [Vitamin B-12] 1,000 mcg Tablet 1,000 mcg PO HS Rx Instructions: Unable to verify OTC meds at this date/time. prednisone 5 mg tablet 5 mg PO PM hydroxychloroquine 200 mg tablet 200 mg PO PM mirtazapine 7.5 mg tablet 7.5 mg PO HS Qty: 30 2RF Held Eliquis 5 mg tablet 5 mg PO BID Qty: 60 0RF Hold Instructions: Resume on 11/28/24. amlodipine 5 mg tablet 0 mg PO PM Hold Instructions: hold unless your family doctor asks you to resume Rx Instructions: Note in system to resume on 12/17/24. Original Directions: Take 5mg w/ 2.5mg to equal 7.5mg by mouth once daily. amlodipine 2.5 mg tablet 2.5 mg PO PM Qty: 0 0RF Hold Instructions: hold unless your family doctor asks you to resume Discharge Orders: Discharge Order (Routine); Ordered 11/27/24 Ordered By: Sebastian Mondragon Admission Data Admit Date/Time: 11/20/24 11:45 Attending Provider: Sebastian Mondragon Admit Provider: Sebastian Carrizales Primary Care Provider: Eliel Lynn V. Other Providers: Sebastian Carrizales; [facility] Stay Data Consultations 11/20/24 11:01 ED Decision to Admit Stat 11/26/24 16:41 Consult Gastroenterology Routine Diagnostic Imagining Performed 11/20/24 08:26 CT angio head w con Stat CT angio neck with con Stat CT head/brain wo con Stat 11/26/24 05:[address] [CT head/brain wo con] Stat 11/26/24 13:00 FL video swallow Routine 11/27/24 11:43 CT facial bones wo con Urgent Pending Results Patient Have Any Pending Studies at Discharge: No Discharge Instructions Given to Patient (Per Discharging Provider) Ms Farias, You were hospitalized for a urinary tract infection. You completed 7 full days of IV antibiotics during the stay. During the hospitalization you suffered a fall while walking to the bathroom. Unfortunately you hit your head and also hit your right knee. CT head did NOT show any blood in the brain. You had no fractures of the skull bone. The CT did show a hematoma (bruise) over the right forehead. X-rays of the right knee did NOT show fractures. You do have a small skin tear over the right knee from the fall. CT scan of your facial bones did NOT show any facial fractures. Finally, we performed a video swallow test to ensure you were swallowing normally. This was done because we noticed you would cough after drinking fluids. The video test showed that you likely have a condition called "Zenker's diverticulum." This is when a pouch forms from the wall of the esophagus. Food & beverage can enter the pouch and become temporarily stuck there. [facility] saw you and they plan to do outpatient upper endoscopy to look at the Zenker's in more detail. Speech has recommended a "slippery" diet to allow safer swallowing. Please see their instructions. Recommendations - 1. HOLD your Eliquis tonight; resume the AM of 11/28/24. 2. Ice to your forehead hematoma/bruise as often as possible over the next 3-4 days. After 3-4 days you can switch to heat to promote resolution. 3. Ice to your right knee for the next 3-4 days. 4. Optifoam dressing (or similar) - place on the skin tear near the knee, change the dressing every 48 hours and as needed. 5. Seroquel (quetiapine) - 12.5mg at bedtime. I would recommend taking this for the next 2-3 days, then trying to stop it and just using as needed thereafter. 6. Pantoprazole 40mg once daily each morning for your esophagus/stomach. This is an acid pig iron loader. 7. Take 10mg of prednisone each day on 11/28/24, 11/29/24, and 11/30/24. Then, starting 12/01/24, resume your usual dose of prednisone 5mg daily. 8. Use your walker at all times for ambulation in your house and when you leave your home. This will make your walking safer and reduce the risk of falls. 9. STOP your amlodipine. Your blood pressures were generally ok without the use of this medicine. If you have a blood pressure cuff at home please check your blood pressure daily and write these numbers in a notebook to show to your family doctor. Follow-up - see separate section Return to [facility] if - * you have fevers over 100 degrees * you have shortness of breath * you have chest pains * you have severe diarrhea (more than 3 liquid stools in 24 hours) * you have severe headaches * any other concerns It was our pleasure to care for you! -Dr Mondragon Coding Diagnoses Fall W19.XXXA Head injury S09.90XA Dysphagia R13.10 Zenker's diverticulum K22.5 UTI (urinary tract infection) N39.0 Encephalopathy acute G93.40 Cognitive impairment R41.89 Hypokalemia E87.6 Hypomagnesemia E83.42 Elevated troponin I level R79.89 Rheumatoid arthritis M06.9 History of DVT (deep vein thrombosis) Z86.718 Hypertension I10
[2024-11-27 16:27] VITALS: PULSE 93
== END 2024-11-27 17:08 | disposition home health service (06) | DRG 689 ==
LOC: ED 07:47 → EDINP 11:45 → SUATTDRO 11:45 → 3W 12:48